=== PATIENT | female | born 1995 | race Caucasian/White ===

== ENCOUNTER 2016-12-28 13:54 | Emergency (ER) | payer MEDICAID ==
[~2016-12-28] VITALS: Ht 160 cm; Wt 72.6 kg
[~2016-12-28 13:54] MED LIST: B6-FOLIC ACID1 CAP PO; BENTYL10 MG PO; LITHIUM CARB 3300 MG OR; LOESTRIN 21 1/21 TAB PO; METHYLPHENIDATE5 MG PO; NAPROSYN 500MG500 MG PO; NICOTINE PATCH;21 MG TD; PHENERGAN 25MG.25 M1 PO; PRENATAL1 TA2 PO; PRILOSEC20 M1 PO; RISPERDAL0.5 MG PO; RISPERDAL1 MG PO; TRILEPTAL300 MG PO; UNISOM25 M1 PO; ZANAFLEX4 MG NG; ZOFRAN ODT8 MG PO
[2016-12-28] MEDS ORDERED: CITALOPRAM10 M1 PO (14:02)
[2016-12-28] MEDS ORDERED: NAPROSYN 500MG500 MG PO (14:03)
--- NOTE | 2016-12-28 14:06 | Emergency Room Report ---
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 N Clinical Suspician of Infection? N Mental Status: 1 - Regular (Normal Baseline) Sepsis Risk:Low Sepsis Risk Have you (or family members/close friends) recently traveled outside the [place]? N If Yes, where/when: Have you had exposure to infectious disease within the past month? N TB? Other? Specify: Pt reports hx longstanding ligamentous pain to left knee. 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 WB, no numbness. No swelling. No direct blow. 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 ALLERGIES Coded Allergies: amoxicillin (I-HIVES 12/28/16) Home Medications Reported Medications Citalopram Hydrobromide (Citalopram HBr) 10 MG PO DAILY #30 NAPROXEN (NAPROSYN 500MG TAB) 500 MG PO BID History Medical History General CAD? No Angina: No [place]: No Hypertension? No Hyperlipidemia? No CHF? No DVT? No PE? No COPD? No Asthma? Yes Anemia? No GERD? No Gastric ulcers? No GI Bleed? No Hernia? No Thyroid Problems? Yes Hypothyroidism? Yes CVA? No Seizures? No Diabetes? No Renal Insuffiency? No End Stage Renal Disease? No UTI? No Stones? No GB Disease: Yes Nephritic Syndrome? No Asplenia? No Hepatitis? No Sickle Cell Disease? No Arthritis? No Migraines? No Cataracts? No Glaucoma? No MRSA? No HIV? No TB? No Anxiety? No Depression? No Cancer? No More? 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 Cardiovascular no peripheral edema Extremities no asymmetry or rotation; no edema or ecchymosis; no ballottement; palpable popliteal and DP pulses. FROM, fully sensate w/ well perfused limb, diffusely painful with neg ant drawer sign, mild pain w/ both valgus and varus maneuvers; no crepitus, deformities, or stepoffs. Neurologic alert, normal exam, no motor/sensory deficits, oriented x 3 Medical Decision Making LABS/Meds/Orders Pt receiving controlled substance in ED? No Results/Orders Orders Procedure Date/time Status KNEE-3 VIEWS-LT 12/28 1404 Active XRAY/CT/US XRAY/CT/US XRAY knee XR interpretation by reviewed by me Xray Results normal/NAD, no fracture seen (minor STS) Departure Departure Time of Disposition 141 Disposition DC Home or Self Care(routine) Clinical Impression Primary Impression: Left knee pain Qualifiers: Chronicity: unspecified Qualified Code: M25.562 - Pain in left knee Condition STABLE Referrals ANITA DONATO APRN (Family) Patient Instructions DI for Knee Pain Additional Instructions Continue Naproxen as already prescribed by Anita, and see Anita for recheck in one to three days. MARIA ANTONIA wrap and crutches for comfort. Weight bearing as tolerated. Discharge Counseling Counseled pt/family regarding diagnosis, test results, medications/RX, home care, follow up needs ED Critical Care Critical Care No at [id number]
--- NOTE | 2016-12-28 14:06 | Emergency Room Report ---
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 N Clinical Suspician of Infection? N Mental Status: 1 - Regular (Normal Baseline) Sepsis Risk:Low Sepsis Risk Have you (or family members/close friends) recently traveled outside the [place]? N If Yes, where/when: Have you had exposure to infectious disease within the past month? N TB? Other? Specify: Pt reports hx longstanding ligamentous pain to left knee. 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 WB, no numbness. No swelling. No direct blow. 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 ALLERGIES Coded Allergies: amoxicillin (I-HIVES 12/28/16) Home Medications Reported Medications Citalopram Hydrobromide (Citalopram HBr) 10 MG PO DAILY #30 NAPROXEN (NAPROSYN 500MG TAB) 500 MG PO BID History Medical History General CAD? No Angina: No [place]: No Hypertension? No Hyperlipidemia? No CHF? No DVT? No PE? No COPD? No Asthma? Yes Anemia? No GERD? No Gastric ulcers? No GI Bleed? No Hernia? No Thyroid Problems? Yes Hypothyroidism? Yes CVA? No Seizures? No Diabetes? No Renal Insuffiency? No End Stage Renal Disease? No UTI? No Stones? No GB Disease: Yes Nephritic Syndrome? No Asplenia? No Hepatitis? No Sickle Cell Disease? No Arthritis? No Migraines? No Cataracts? No Glaucoma? No MRSA? No HIV? No TB? No Anxiety? No Depression? No Cancer? No More? 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 Cardiovascular no peripheral edema Extremities no asymmetry or rotation; no edema or ecchymosis; no ballottement; palpable popliteal and DP pulses. FROM, fully sensate w/ well perfused limb, diffusely painful with neg ant drawer sign, mild pain w/ both valgus and varus maneuvers; no crepitus, deformities, or stepoffs. Neurologic alert, normal exam, no motor/sensory deficits, oriented x 3 Medical Decision Making LABS/Meds/Orders Pt receiving controlled substance in ED? No Results/Orders Orders Procedure Date/time Status KNEE-3 VIEWS-LT 12/28 1404 Active XRAY/CT/US XRAY/CT/US XRAY knee XR interpretation by reviewed by me Xray Results normal/NAD, no fracture seen (minor STS) Departure Departure Time of Disposition 141 Disposition DC Home or Self Care(routine) Clinical Impression Primary Impression: Left knee pain Qualifiers: Chronicity: unspecified Qualified Code: M25.562 - Pain in left knee Condition STABLE Referrals ANITA DONATO APRN (Family) Patient Instructions DI for Knee Pain Additional Instructions Continue Naproxen as already prescribed by Anita, and see Anita for recheck in one to three days. MARIA ANTONIA wrap and crutches for comfort. Weight bearing as tolerated. Discharge Counseling Counseled pt/family regarding diagnosis, test results, medications/RX, home care, follow up needs ED Critical Care Critical Care No at [phone]
[2016-12-28 14:26] VITALS: BP 121/85
--- NOTE | 2016-12-28 14:52 | RADIOLOGY REPORT PS360 ---
KNEE-3 VIEWS-LT HISTORY: Left knee pain twisted L knee ORDERING PHYSICIAN: Marcela Matta MD PATIENT AGE: 21 years COMPARISON: None FINDINGS: No fracture or dislocation. No lytic or blastic change. Normal mineralization. No significant arthritic changes evident. No other significant findings IMPRESSION: Negative Knee
--- OUTSIDE RECORDS SUMMARY | 2017-01-02 02:28 | External Medical Summary Rpt | CCD ---
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 40 10 00 SO Ac UP 87 -1 -1 .0 00 PE ti RO 70 8- 0- 00 00 RS ve FE 32 20 20 55 N 00 17 17 39 FA 60 5 80 AL [address] TA UG BL ET WARD 00 01 02 3. 28 00 SO Ac LA 37 -0 -0 00 00 PE ti NE 83 3- 3- 0 00 RS ve 34 20 20 55 PA 05 17 17 25 FA TC [address] UG ME 59 01 02 1. [address] 76 -0 -0 00 00 YS ti OX 24 3- 3- 0 06 ve YP 53 20 20 29 LL RO 70 17 17 42 E GE [address] /G ER YN ON E FA 15 AL 0 LY MG /M HE L AL TH CE NT ER PH AR MA CY PA 00 12 01 30 30 00 SO Ac RO 37 -2 -2 .0 00 PE ti XE 87 7- 0- 00 00 RS ve TI 00 20 20 55 NE 29 16 17 20 FA 3 33 AL HC LY L 20 DR UG MG TA BL ET AL 00 12 01 30 30 00 SO Ac RT 09 -2 -2 .0 00 PE ti AZ 37 7- 0- 00 00 RS ve AP 20 20 20 55 IN 65 16 17 20 FA E 6 34 AL [address] UG TA BL ET ME 69 12 01 20 20 00 SO Ac LO 09 -1 -0 .0 00 PE ti XI 70 4- 9- 00 00 RS ve CA 15 20 20 55 M 81 16 17 09 FA 7. 2 97 AL [address] TA UG BL ET 48 10 10 0 3. 7 SO 38 SP Ac 10 -2 -2 50 PE 83 EA ti 20 6- 8- 0 RS 87 R ve [address] 83 11 11 FA EV 5 AL EN LY N DR UG RI 68 09 10 1 30 30 SO 38 PO Ac SP 38 -2 -2 .0 PE 52 E ti ER 20 6- 6- [address] ve ID 11 20 20 AC ON 31 11 11 FA Y E 4 AL L 0. LY [address] UG TA BL ET RI 68 09 10 1 30 30 SO 38 PO Ac SP 38 -2 -1 .0 PE 52 E ti ER 20 6- 7- [address] ve ID 11 20 20 AC ON 41 11 11 FA Y E 4 AL L [address] TA UG BL ET LI 00 09 10 1 60 30 SO 38 PO Ac TH 05 -2 -1 .0 PE 52 E ti IU 42 6- 7- [address] ve M 52 20 20 AC CA 73 11 11 FA Y RB 1 AL L ON LY AT E DR 30 UG 0 MG CA P OK 37 09 10 2 56 28 SO 38 TA Ac IL 00 -1 -1 .0 PE 39 MA ti OS 00 2- 1- 00 RS 16 RE ve EC 45 20 20 N 50 11 11 FA JA OT 4 AL NE C LY T [address] UG MG TA BL ET 00 09 10 2 28 28 SO 38 TA Ac 43 -1 -1 .0 PE 39 MA ti 00 2- 1- 00 RS 15 RE ve 53 20 20 N 01 11 11 FA JA 4 AL NE LY T DR UG RI 68 09 09 1 30 30 SO 38 PO Ac SP 38 -2 -2 .0 PE 52 E ti ER 20 6- 6- [address] ve ID 11 20 20 AC ON 31 11 11 FA Y E 4 AL L 0. LY [address] UG TA BL ET LI 00 08 09 0 60 30 SO 38 PO Ac TH 05 -2 -1 .0 PE 27 E ti IU [address] ve M 52 20 20 AC CA 73 11 11 FA Y RB 1 AL L ON LY AT E DR 30 UG 0 MG CA P RI 68 08 09 0 30 30 SO 38 PO Ac SP 38 -2 -1 .0 PE 27 E ti ER [address] ve ID 11 20 20 AC ON 41 11 11 FA Y E 4 AL L [address] TA UG BL ET 45 09 09 3 14 30 SO 38 GR Ac 80 -1 -1 2. PE 41 AV ti 20 RS 71 ES ve 91 20 20 0 30 11 11 FA LE 1 AL SL LY IE W DR UG IM 00 09 09 0 24 30 SO 38 GR Ac IQ 78 -1 -1 .0 PE 41 AV ti UI 17 RS 73 ES ve MO 15 20 20 D 20 11 11 FA LE 5% 9 AL SL LY IE CR W EA DR M UG PA CK ET DI 00 09 09 3 59 30 SO 38 GR Ac FF 29 -1 -1 .0 PE 41 AV ti ER 95 4- 4- RS 74 ES ve IN 91 20 20 20 11 11 FA LE 0. 2 AL SL 1% LY IE W LO DR TI UG ON CL 59 09 09 3 60 30 SO 38 GR Ac IN 76 -1 -1 .0 PE 41 AV ti DA 23 - 4 RS 75 ES ve MY 74 20 20 CI 40 11 11 FA LE N 1 AL SL PH LY IE OS W P DR 1% UG LO TI ON 00 09 09 2 28 28 SO 38 TA Ac 43 -1 -1 .0 PE 39 MA ti 00 2 2- 00 RS 15 RE ve 53 20 20 N 01 11 11 FA JA 4 AL NE LY T DR UG OK 37 09 09 2 56 28 SO 38 TA Ac IL 00 -1 -1 .0 PE 39 MA ti OS 00 2- 2- 00 RS 16 RE ve EC 45 20 20 N 50 11 11 FA JA OT 4 AL NE C LY T [address] UG MG TA BL ET 64 09 09 0 30 4 SO 38 TA Ac 45 -1 -1 .0 PE 39 MA ti 50 2- 2- 00 RS 18 RE ve 99 20 20 N 39 11 11 FA JA 5 AL NE LY T DR UG AC 00 09 09 1 20 5 SO 38 TA Ac YC 09 -1 -1 .0 PE 39 MA ti LO 38 2- 2- 00 RS 19 RE ve 94 20 20 N R 30 11 11 FA JA 40 1 AL NE [address] TA UG BL ET OK 00 08 08 0 12 3 SO 38 TA Ac OM 60 -3 -3 0. PE 28 MA ti ET 31 0- 0- 00 RS 79 RE ve MANUEL 58 20 20 0 N ZI 55 11 11 FA JA NE 8 AL NE -C LY T OD EI DR NE UG SY RU P CE 68 08 08 0 [address] Ac FU 18 -3 -3 .0 PE 28 ON ti RO 00 0- 0- 00 RS 74 E ve XI 30 20 20 DI ME 32 11 11 FA XI 0 AL E AX LY D ET IL DR UG 50 0 MG TA B RI 68 08 08 0 30 30 SO 38 PO Ac SP 38 -2 -2 .0 PE 27 E ti ER 20 9- 9- [address] ve ID 11 20 20 AC ON 31 11 11 FA Y E 4 AL L 0. LY [address] UG TA BL ET 00 08 08 0 12 3 SO 38 TA Ac 12 -2 -2 0. PE 25 MA ti 10 6- 6- 00 RS 50 RE ve 63 20 20 0 N 81 11 11 FA JA 6 AL NE LY T DR UG 52 08 08 0 12 30 SO 38 TA Ac 15 -2 -2 .0 PE 25 MA ti 20 6- 6- 00 RS 55 RE ve 53 20 20 N 93 11 11 FA JA 0 AL NE LY T DR UG RI 68 08 08 0 30 30 SO 38 PO Ac SP 38 -0 -1 .0 PE 00 E ti ER 20 1- 8- [address] ve ID 11 20 20 AC ON 41 11 11 FA Y E 4 AL L [address] TA UG BL ET LI 00 08 08 0 60 30 SO 38 PO Ac TH 05 -0 -1 .0 PE 00 E ti IU 42 1- 8- [address] ve M 52 20 20 AC CA 73 11 11 FA Y RB 1 AL L ON LY AT E DR 30 UG 0 MG CA P TR 45 08 08 0 30 5 SO 38 TA Ac IA 80 -1 -1 .0 PE 12 MA ti MC 20 5- 5 RS 51 RE ve IN 04 20 20 N OL 93 11 11 FA JA ON 5 AL NE E LY T 0. 5% DR STEPHENS OI NT ME NT 00 06 08 2 [address] Ac 43 -0 -1 .0 PE 51 ON ti 00 2 RS 78 E ve 53 20 20 DI 01 11 11 FA XI 4 AL E LY D DR UG RI 00 08 08 0 30 30 SO 38 PO Ac SP 09 -0 -0 .0 PE 00 E ti ER [address] ve ID 22 20 20 AC ON 50 11 11 FA Y E 6 AL L 0. LY [address] UG TA BL ET OK 37 05 07 2 [address] Ac IL 00 -0 -2 .0 PE 29 ON ti OS 00 RS 44 E ve EC 45 20 20 DI 50 11 11 FA XI OT 4 AL E C LY D [address] UG MG TA BL ET RI 68 07 07 0 30 30 SO 37 PO Ac SP 38 -1 -1 .0 PE 89 E ti ER [address] ve ID 11 20 20 AC ON 41 11 11 FA Y E 4 AL L [address] TA UG BL ET LI 00 07 07 0 60 30 SO 37 PO Ac TH 05 -1 -1 .0 PE 89 E ti IU [address] ve M 52 20 20 AC CA 73 11 11 FA Y RB 1 AL L ON LY AT E DR 30 UG 0 MG CA P LI 60 07 07 1 [address] Ac ND 43 -1 -1 .0 PE 87 ON ti AN 20 RS 81 E ve E 83 20 20 DI 1% 46 11 11 FA XI 0 AL E SH LY D AM PO DR O UG 00 06 07 2 [address] Ac 43 -0 -0 .0 PE 51 ON ti 00 RS 78 E ve 53 20 20 DI 01 11 11 FA XI 4 AL E LY D DR STEPHENS TR 50 05 06 2 [address] Ac AZ 11 -0 -2 .0 PE 29 ON ti OD 10 00 RS 46 E ve ON 43 20 20 DI E 30 11 11 FA XI 50 3 AL E LY D MG TA UG BL ET CO 50 06 06 0 30 30 SO 37 TA Ac NC 45 -2 -2 .0 PE 67 MA ti ER 80 1 00 RS 33 RE ve TA 58 20 20 N 70 11 11 FA JA ER 1 AL NE LY T 54 DR MG UG TA BL ET TR 45 06 06 1 30 5 SO 37 TA Ac IA 80 -2 -2 .0 PE 67 MA ti MC 20 RS 36 RE ve IN 06 20 20 N OL 53 11 11 FA JA ON 5 AL NE E LY T 0. 5% DR UG CR EA M CI 13 05 06 2 30 30 SO 37 TA Ac TA 66 -0 -1 .0 PE 29 MA ti LO 80 6 6 00 RS 40 RE ve OK 01 20 20 N AM 10 11 11 FA JA 5 AL NE HB LY T R 40 DR UG MG TA BL ET 00 10 06 2 60 30 SO 35 TA Ac AN 37 -0 -1 .0 PE 39 MA ti FA 81 6 6 00 RS 53 RE ve CI 16 20 20 N NE 00 10 11 FA JA 1 1 AL NE LY T MG DR TA UG BL ET 00 05 06 2 [address] Ac 00 -0 -1 .0 PE 29 ON ti 60 6- 6 00 RS 42 E ve 11 20 20 DI 73 11 11 FA XI 1 AL E LY D DR UG OK 37 05 06 2 [address] Ac IL 00 -0 -1 .0 PE 29 ON ti OS 00 6 6 RS 44 E ve EC 45 20 20 DI 50 11 11 FA XI OT 4 AL E C LY D [address] UG MG TA BL ET 00 06 06 2 [address] Ac 43 -0 -0 .0 PE 51 ON ti 00 2 2 RS 78 E ve 53 20 20 DI 01 11 11 FA XI 4 AL E LY D DR UG TR 50 05 05 2 [address] Ac AZ 11 -0 -3 .0 PE 29 ON ti OD 10 RS 46 E ve ON 43 20 20 DI E 30 11 11 FA XI 50 3 AL E LY D MG DR TA UG BL ET 00 10 05 2 60 30 SO 35 TA Ac AN 37 -0 -1 .0 PE 39 MA ti FA 81 6- 2- 00 RS 53 RE ve CI 16 20 20 N NE 00 10 11 FA JA 1 1 AL NE LY T MG DR TA UG BL ET CI 13 05 05 2 30 30 SO 37 TA Ac TA 66 -0 -1 .0 PE 29 MA ti LO 80 6- 2- 00 RS 40 RE ve OK 01 20 20 N AM 10 11 11 FA JA 5 AL NE HB LY T R 40 DR UG MG TA BL ET 00 05 05 2 [address] Ac 00 -0 -1 .0 PE 29 ON ti 60 6- 2- 00 RS 42 E ve 11 20 20 DI 73 11 11 FA XI 1 AL E LY D DR UG OK 37 05 05 2 [address] Ac IL 00 -0 -1 .0 PE 29 ON ti OS 00 6- 2- 00 RS 44 E ve EC 45 20 20 DI 50 11 11 FA XI OT 4 AL E C LY D [address] UG MG TA BL ET 59 02 05 2 17 30 SO 36 TA Ac 31 -1 -0 .0 PE 49 MA ti 00 0- 6- 00 RS 60 RE ve 57 20 20 N 92 11 11 FA JA 0 AL NE LY T DR UG 00 02 05 2 30 30 SO 36 TA Ac 06 -1 -0 .0 PE 49 MA ti 76 0- 6- 00 RS 63 RE ve 07 20 20 N 03 11 11 FA JA 0 AL NE LY T DR UG CO 50 05 05 0 30 30 SO 37 TA Ac NC 45 -0 -0 .0 PE 29 MA ti ER 80 6- 6- 00 RS 41 RE ve TA 58 20 20 N 70 11 11 FA JA ER 1 AL NE LY T 54 DR MG UG TA BL ET TR 50 02 04 2 30 30 SO 36 TA Ac AZ 11 -1 -2 .0 PE 49 MA ti OD 10 0- 9- 00 RS 61 RE ve ON 43 20 20 N E 30 11 11 FA JA 50 3 AL NE LY T MG DR TA UG BL ET 00 02 04 2 30 30 SO 36 TA Ac 00 -1 -1 .0 PE 49 MA ti 60 0- 1- 00 RS 58 RE ve 11 20 20 N 73 11 11 FA JA 1 AL NE LY T DR UG OK 37 02 04 2 56 28 SO 36 TA Ac IL 00 -1 -1 .0 PE 49 MA ti OS 00 0- 1- 00 RS 59 RE ve EC 45 20 20 N 50 11 11 FA JA OT 4 AL NE C LY T [address] UG MG TA BL ET 00 02 04 2 60 30 SO 36 TA Ac AN 37 -1 -1 .0 PE 49 MA ti FA 81 0- 1- 00 RS 62 RE ve CI 16 20 20 N NE 00 11 11 FA JA 1 1 AL NE LY T MG DR TA UG BL ET CI 13 02 04 2 30 30 SO 36 TA Ac TA 66 -1 -1 .0 PE 49 MA ti LO 80 0- 1- 00 RS 64 RE ve OK 01 20 20 N AM 10 11 11 FA JA 5 AL NE HB LY T R 40 DR UG MG TA BL ET CO 50 04 04 0 30 30 SO 37 TA Ac NC 45 -0 -0 .0 PE 03 MA ti ER 80 7- 7- 00 RS 48 RE ve TA 58 20 20 N 70 11 11 FA JA ER 1 AL NE LY T 54 DR MG UG TA BL ET 00 11 04 5 [address] Ac 43 -0 -0 .0 PE 65 ON ti 00 3- 7- RS 00 E ve 53 20 20 DI 01 10 11 FA XI 4 AL E LY D DR UG TR 50 02 03 2 30 30 SO 36 TA Ac AZ 11 -1 -2 .0 PE 49 MA ti OD 10 0- 9- 00 RS 61 RE ve ON 43 20 20 N E 30 11 11 FA JA 50 3 AL NE LY T MG DR TA UG BL ET CO 50 03 03 0 30 30 SO 36 TA Ac NC 45 -1 -1 .0 PE 78 MA ti ER 80 0- 0- 00 RS 30 RE ve TA 58 20 20 N 70 11 11 FA JA ER 1 AL NE LY T 54 DR MG UG TA BL ET OK 68 03 03 0 20 7 SO 36 TA Ac OM 38 -1 -1 .0 PE 78 MA ti ET 20 0- 0- 00 RS 29 RE ve MANUEL 04 20 20 N ZI 11 11 11 FA JA NE 0 AL NE LY T 25 DR MG UG TA BL ET CI 13 02 03 2 30 30 SO 36 TA Ac TA 66 -1 -0 .0 PE 49 MA ti LO 80 0- 9- 00 RS 64 RE ve OK 01 20 20 N AM 10 11 11 FA JA 5 AL NE HB LY T R 40 DR UG MG TA BL ET 00 02 03 2 60 30 SO 36 TA Ac AN 37 -1 -0 .0 PE 49 MA ti FA 81 0- 9- 00 RS 62 RE ve CI 16 20 20 N NE 00 11 11 FA JA 1 1 AL NE LY T MG DR TA UG BL ET OK 37 02 03 2 56 28 SO 36 TA Ac IL 00 -1 -0 .0 PE 49 MA ti OS 00 0- 9- 00 RS 59 RE ve EC 45 20 20 N 50 11 11 FA JA OT 4 AL NE C LY T [address] UG MG TA BL ET 00 02 03 2 30 30 SO 36 TA Ac 00 -1 -0 .0 PE 49 MA ti 60 0- 9- 00 RS 58 RE ve 11 20 20 N 73 11 11 FA JA 1 AL NE LY T DR UG 00 11 03 5 [address] Ac 43 -0 -0 .0 PE 65 ON ti 00 3- 7- 00 RS 00 E ve 53 20 20 DI 01 10 11 FA XI 4 AL E LY D DR UG TR 50 02 02 2 30 30 SO 36 TA Ac AZ 11 -1 -2 .0 PE 49 MA ti OD 10 0- 3- 00 RS 61 RE ve ON 43 20 20 N E 30 11 11 FA JA 50 3 AL NE LY T MG DR TA UG BL ET CI 13 02 02 2 30 30 SO 36 TA Ac TA 66 -1 -1 .0 PE 49 MA ti LO 80 0- 0- 00 RS 64 RE ve OK 01 20 20 N AM 10 11 11 FA JA 5 AL NE HB LY T R 40 DR UG MG TA BL ET 00 02 02 2 30 30 SO 36 TA Ac 06 -1 -1 .0 PE 49 MA ti 76 0- 0- 00 RS 63 RE ve 07 20 20 N 03 11 11 FA JA 0 AL NE LY T DR STEPHENS 00 02 02 2 60 30 SO 36 TA Ac AN 37 -1 -1 .0 PE 49 MA ti FA 81 0- 0- 00 RS 62 RE ve CI 16 20 20 N NE 00 11 11 FA JA 1 1 AL NE LY T MG DR TA UG BL ET 59 02 02 2 17 30 SO 36 TA Ac 31 -1 -1 .0 PE 49 MA ti 00 0- 0- 00 RS 60 RE ve 57 20 20 N 92 11 11 FA JA 0 AL NE LY T DR UG OK 37 02 02 2 56 28 SO 36 TA Ac IL 00 -1 -1 .0 PE 49 MA ti OS 00 0- 0- 00 RS 59 RE ve EC 45 20 20 N 50 11 11 FA JA OT 4 AL NE C LY T [address] STEPHENS MG TA BL ET 00 02 02 2 30 30 SO 36 TA Ac 00 -1 -1 .0 PE 49 MA ti 60 0- 0- 00 RS 58 RE ve 11 20 20 N 73 11 11 FA JA 1 AL NE LY T DR UG CO 50 02 02 0 30 30 SO 36 TA Ac NC 45 -1 -1 .0 PE 49 MA ti ER 80 0- 0- 00 RS 57 RE ve TA 58 20 20 N 70 11 11 FA JA ER 1 AL NE LY T 54 DR MG UG TA BL ET 00 11 02 5 [address] Ac 43 -0 -0 .0 PE 65 ON ti 00 3- 7- 00 RS 00 E ve 53 20 20 DI 01 10 11 FA XI 4 AL E LY D DR UG 60 01 01 0 24 6 SO 36 TA Ac 25 -2 -2 0. PE 33 MA ti 80 4- 4- 00 RS 06 RE ve 23 20 20 0 N 91 11 11 FA JA 6 AL NE LY T DR UG ME 51 01 01 0 21 6 SO 36 TA Ac TH 99 -2 -2 .0 PE 33 MA ti YL 10 4- 4- 00 RS 05 RE ve OK 18 20 20 N ED 83 11 11 FA JA NI 1 AL NE SO LY T LO NE DR 4 UG MG DO SE PK AZ 00 01 01 0 6. 5 SO 36 TA Ac IT 78 -2 -2 00 PE 33 MA ti HR 11 4- 4- 0 RS 04 RE ve OM 49 20 20 N YC 66 11 11 FA JA IN 8 AL NE LY T [address] MG UG TA BL ET TR 50 11 01 2 30 30 SO 35 TA Ac AZ 11 -1 -2 .0 PE 74 MA ti OD 10 1- 4- 00 RS 13 RE ve ON 43 20 20 N E 30 10 11 FA JA 50 3 AL NE LY T MG DR TA UG BL ET CI 13 11 01 2 30 30 SO 35 TA Ac TA 66 -0 -1 .0 PE 68 MA ti LO 80 8- 2- 00 RS 96 RE ve OK 01 20 20 N AM 10 10 11 FA JA 5 AL NE HB LY T R 40 DR UG MG TA BL ET OK 37 11 01 2 56 28 SO 35 TA Ac IL 00 -0 -1 .0 PE 68 MA ti OS 00 8- 2- 00 RS 93 RE ve EC 45 20 20 N 50 10 11 FA JA OT 4 AL NE C LY T [address] UG MG TA BL ET 00 11 01 2 30 30 SO 35 TA Ac 00 -0 -1 .0 PE 68 MA ti 60 8- 2- 00 RS 94 RE ve 11 20 20 N 73 10 11 FA JA 1 AL NE LY T DR UG 00 11 01 2 60 30 SO 35 TA Ac AN 37 -0 -1 .0 PE 68 MA ti FA 81 8- 2- 00 RS 95 RE ve CI 16 20 20 N NE 00 10 11 FA JA 1 1 AL NE LY T MG DR TA UG BL ET CO 50 01 01 0 30 30 SO 36 TA Ac NC 45 -1 -1 .0 PE 22 MA ti ER 80 0- 0- 00 RS 05 RE ve TA 58 20 20 N 70 11 11 FA JA ER 1 AL NE LY T 54 DR MG UG TA BL ET HY 00 01 01 0 30 10 SO [address] 16 -0 -0 .0 PE 17 MA ti OC 80 4- 4- 00 RS 23 RE ve OR 08 20 20 N TI 03 11 11 FA JA SO 1 AL NE NE LY T 2. DR 5% UG CR EA M NY 45 01 01 0 30 10 SO [address] 80 -0 -0 .0 PE 17 MA ti AT 20 4- 4- 00 RS 22 RE ve IN 04 20 20 N 81 11 11 FA JA 10 1 AL NE 0, LY T [address] UN UG IT S/ GM OI NT 00 11 01 5 [address] Ac 43 -0 -0 .0 PE 65 ON ti 00 3- 3- 00 RS 00 E ve 53 20 20 DI 01 10 11 FA XI 4 AL E LY D DR UG TR 50 11 12 2 30 30 SO 35 TA Ac AZ 11 -1 -2 .0 PE 74 MA ti OD 10 1- 0- 00 RS 13 RE ve ON 43 20 20 N E 30 10 10 FA JA 50 3 AL NE LY T MG DR TA UG BL ET CO 50 12 12 0 30 30 SO 35 TA Ac NC 45 -1 -1 .0 PE 99 MA ti ER 80 0- 0- 00 RS 43 RE ve TA 58 20 20 N 70 10 10 FA JA ER 1 AL NE LY T 54 DR MG UG TA BL ET CI 13 11 12 2 30 30 SO 35 TA Ac TA 66 -0 -0 .0 PE 68 MA ti LO 80 8- 8- 00 RS 96 RE ve OK 01 20 20 N AM 10 10 10 FA JA 5 AL NE HB LY T R 40 DR UG MG TA BL ET OK 37 11 12 2 56 28 SO 35 TA Ac IL 00 -0 -0 .0 PE 68 MA ti OS 00 8- 8- 00 RS 93 RE ve EC 45 20 20 N 50 10 10 FA JA OT 4 AL NE C LY T [address] UG MG TA BL ET 00 11 12 2 30 30 SO 35 TA Ac 00 -0 -0 .0 PE 68 MA ti 60 8- 8- 00 RS 94 RE ve 11 20 20 N 73 10 10 FA JA 1 AL NE LY T DR UG 00 11 12 2 60 30 SO 35 TA Ac AN 37 -0 -0 .0 PE 68 MA ti FA 81 8- 8- 00 RS 95 RE ve CI 16 20 20 N NE 00 10 10 FA JA 1 1 AL NE LY T MG DR TA UG BL ET 00 11 12 5 [address] Ac 43 -0 -0 .0 PE 65 ON ti 00 3- 2- 00 RS 00 E ve 53 20 20 DI 01 10 10 FA XI 4 AL E LY D DR UG ON 00 11 11 0 6. 30 SO 35 TA Ac DA 78 -1 -1 00 PE 80 MA ti NS 11 8- 8- 0 RS 42 RE ve ET 68 20 20 N RO 13 10 10 FA JA N 1 AL NE HC LY T L 8 DR MG UG TA BL ET TR 50 11 11 2 30 30 SO 35 TA Ac AZ 11 -1 -1 .0 PE 74 MA ti OD 10 1- 1- 00 RS 13 RE ve ON 43 20 20 N E 30 10 10 FA JA 50 3 AL NE LY T MG DR TA UG BL ET CO 50 11 11 0 30 30 SO 35 TA Ac NC 45 -0 -0 .0 PE 68 MA ti ER 80 8- 8- 00 RS 99 RE ve TA 58 20 20 N 70 10 10 FA JA ER 1 AL NE LY T 54 DR MG UG TA BL ET 64 11 11 2 60 30 SO 35 TA Ac 98 -0 -0 .0 PE 68 MA ti 00 8- 8- 00 RS 98 RE ve 12 20 20 N 30 10 10 FA JA 1 AL NE LY T DR UG 00 11 11 2 30 30 SO 35 TA Ac 06 -0 -0 .0 PE 68 MA ti 76 8- 8- 00 RS 97 RE ve 07 20 20 N 03 10 10 FA JA 0 AL NE LY T DR UG CI 13 11 11 2 30 30 SO 35 TA Ac TA 66 -0 -0 .0 PE 68 MA ti LO 80 8- 8- 00 RS 96 RE ve OK 01 20 20 N AM 10 10 10 FA JA 5 AL NE HB LY T R 40 DR UG MG TA BL ET 00 11 11 2 60 30 SO 35 TA Ac AN 37 -0 -0 .0 PE 68 MA ti FA 81 8 8- 00 RS 95 RE ve CI 16 20 20 N NE 00 10 10 FA JA 1 1 AL NE LY T MG DR TA UG BL ET 00 11 11 2 30 30 SO 35 TA Ac 00 -0 -0 .0 PE 68 MA ti 60 8- 8- 00 RS 94 RE ve 11 20 20 N 73 10 10 FA JA 1 AL NE LY T DR UG OK 37 11 11 2 56 28 SO 35 TA Ac IL 00 -0 -0 .0 PE 68 MA ti OS 00 8 8 00 RS 93 RE ve EC 45 20 20 N 50 10 10 FA JA OT 4 AL NE C LY T [address] UG MG TA BL ET 59 11 11 2 17 30 SO 35 TA Ac 31 -0 -0 .0 PE 68 MA ti 00 8 8 RS 92 RE ve 57 20 20 N 92 10 10 FA JA 0 AL NE LY T DR UG BE 68 11 11 0 [address] Ac NZ 38 -0 -0 .0 PE 64 ON ti ON 20 3 3 RS 98 E ve AT 24 20 20 DI AT 80 10 10 FA XI E 1 AL E 20 L[address] UG CA PS UL E CE 68 11 11 0 [address] Ac FU 18 -0 -0 .0 PE 64 ON ti RO 00 3 3- 00 RS 99 E ve XI 30 20 20 DI ME 26 10 10 FA XI 0 AL E AX LY D ET IL DR UG 25 0 MG TA B 00 11 11 5 [address] Ac 43 -0 -0 .0 PE 65 ON ti 00 3- 3- 00 RS 00 E ve 53 20 20 DI 01 10 10 FA XI 4 AL E LY D DR UG TR 51 11 11 0 5. [address] Ac IA 67 -0 -0 00 PE 65 ON ti MC 21 3- 3- 0 RS 01 E ve IN 26 20 20 DI OL 70 10 10 FA XI ON 5 AL E E LY D 0. 1% DR UG PA ST E 64 11 11 0 [address] Ac 37 -0 -0 .0 PE 65 ON ti 60 3- 3- 00 RS 02 E ve 54 20 20 DI 40 10 10 FA XI 1 AL E LY D DR UG TR 50 08 10 2 30 30 SO 34 TA Ac AZ 11 -1 -1 .0 PE 91 MA ti OD 10 0- 3- 00 RS 58 RE ve ON 43 20 20 N E 30 10 10 FA JA 50 3 AL NE LY T MG DR TA UG BL ET 00 10 10 0 10 7 SO 35 TA Ac 90 -1 -1 .0 PE 45 MA ti 40 2- 2- 00 RS 33 RE ve 79 20 20 N 31 10 10 FA JA 0 AL NE LY T DR UG CE 68 10 10 0 20 10 SO 35 TA Ac FP 18 -0 -0 .0 PE 39 MA ti RO 00 6- 6 00 RS 49 RE ve ZI 40 20 20 N L 30 10 10 FA JA 25 1 AL NE [address] TA UG BL ET 60 10 10 0 24 6 SO 35 TA Ac 25 -0 -0 0. PE 39 MA ti 80 6- 6- 00 RS 48 RE ve 23 20 20 0 N 91 10 10 FA JA 6 AL NE LY T DR UG BE 68 10 10 0 30 10 SO 35 TA Ac NZ 38 -0 -0 .0 PE 39 MA ti ON 20 6- 6 RS 47 RE ve AT 24 20 20 N AT 80 10 10 FA JA E 1 AL NE 20 L[address] UG CA PS UL E DI 00 10 10 0 20 5 SO 35 TA Ac PH 37 -0 -0 .0 PE 39 MA ti EN 80 6- 6- 00 RS 46 RE ve OX 41 20 20 N YL 51 10 10 FA JA AT 0 AL NE E- LY T AT RO DR P UG 2. 5- 0. 02 5 CO 50 10 10 0 30 30 SO 35 TA Ac NC 45 -0 -0 .0 PE 39 MA ti ER 80 6- 6- 00 RS 45 RE ve TA 58 20 20 N 70 10 10 FA JA ER 1 AL NE LY T 54 DR MG UG TA BL ET OK 00 10 10 0 15 5 SO 35 TA Ac ED 59 -0 -0 .0 PE 39 MA ti NI 15 6- 6- 00 RS 44 RE ve SO 44 20 20 N NE 20 10 10 FA JA 5 AL NE [address] UG TA BL ET 00 07 10 2 30 30 SO 34 TA Ac 06 -2 -0 .0 PE 78 MA ti 76 6- 6- 00 RS 81 RE ve 07 20 20 N 03 10 10 FA JA 0 AL NE LY T DR UG OK 37 07 10 2 28 28 SO 34 TA Ac IL 00 -2 -0 .0 PE 78 MA ti OS 00 6- 5- 00 RS 82 RE ve EC 45 20 20 N 50 10 10 FA JA OT 4 AL NE C LY T [address] UG MG TA BL ET CI 13 07 10 2 30 30 SO 34 TA Ac TA 66 -2 -0 .0 PE 78 MA ti LO 80 6- 5- 00 RS 80 RE ve OK 01 20 20 N AM 10 10 10 FA JA 5 AL NE HB LY T R 40 DR UG MG TA BL ET 00 07 10 2 60 30 SO 34 TA Ac AN 37 -2 -0 .0 PE 78 MA ti FA 81 6- 5- 00 RS 79 RE ve CI 16 20 20 N NE 00 10 10 FA JA 1 1 AL NE LY T MG DR TA UG BL ET 00 07 10 2 30 30 SO 34 TA Ac 00 -2 -0 .0 PE 78 MA ti 60 6- 5- 00 RS 78 RE ve 11 20 20 N 73 10 10 FA JA 1 AL NE LY T DR UG TR 50 08 09 2 30 30 SO 34 TA Ac AZ 11 -1 -1 .0 PE 91 MA ti OD 10 0- 0- 00 RS 58 RE ve ON 43 20 20 N E 30 10 10 FA JA 50 3 AL NE LY T MG DR TA UG BL ET 60 09 09 0 18 9 SO 35 TA Ac 25 -0 -0 0. PE 10 MA ti 80 2- 2- 00 RS 95 RE ve 23 20 20 0 N 91 10 10 FA JA 6 AL NE LY T DR UG 00 09 09 0 21 6 SO 35 TA Ac 55 -0 -0 .0 PE 10 MA ti 50 2- 2- 00 RS 94 RE ve 30 20 20 N 13 10 10 FA JA 8 AL NE LY T DR UG CE 68 09 09 0 10 5 SO 35 TA Ac FD 18 -0 -0 .0 PE 10 MA ti IN 00 2- 2- 00 RS 93 RE ve IR 71 20 20 N 16 10 10 FA JA 30 0 AL NE [address] CA UG PS UL E OK 37 07 08 2 28 28 SO 34 TA Ac IL 00 -2 -2 .0 PE 78 MA ti OS 00 6- 7- 00 RS 82 RE ve EC 45 20 20 N 50 10 10 FA JA OT 4 AL NE C LY T [address] UG MG TA BL ET CI 13 07 08 2 30 30 SO 34 TA Ac TA 66 -2 -2 .0 PE 78 MA ti LO 80 6- 6- 00 RS 80 RE ve OK 01 20 20 N AM 10 10 10 FA JA 5 AL NE HB LY T R 40 DR UG MG TA BL ET 00 07 08 2 30 30 SO 34 TA Ac 00 -2 -2 .0 PE 78 MA ti 60 6- 6- 00 RS 78 RE ve 11 20 20 N 73 10 10 FA JA 1 AL NE LY T DR UG 00 07 08 2 60 30 SO 34 TA Ac AN 37 -2 -2 .0 PE 78 MA ti FA 81 6- 6- 00 RS 79 RE ve CI 16 20 20 N NE 00 10 10 FA JA 1 1 AL NE LY T MG DR TA UG BL ET CO 50 08 08 0 30 30 SO 35 TA Ac NC 45 -2 -2 .0 PE 03 MA ti ER 80 5- 5- 00 RS 59 RE ve TA 58 20 20 N 70 10 10 FA JA ER 1 AL NE LY T 54 DR MG UG TA BL ET 64 08 08 0 20 10 SO 34 TA Ac 37 -1 -1 .0 PE 91 MA ti 60 0- 0- 00 RS 56 RE ve 54 20 20 N 40 10 10 FA JA 1 AL NE LY T DR UG BE 68 08 08 0 30 10 SO 34 TA Ac NZ 38 -1 -1 .0 PE 91 MA ti ON 20 0- 0- 00 RS 57 RE ve AT 24 20 20 N AT 80 10 10 FA JA E 1 AL NE 20 LY T [address] UG CA PS UL E TR 50 08 08 2 30 30 SO 34 TA Ac AZ 11 -1 -1 .0 PE 91 MA ti OD 10 0- 0- 00 RS 58 RE ve ON 43 20 20 N E 30 10 10 FA JA 50 3 AL NE LY T MG DR TA UG BL ET CE 68 08 08 0 14 7 SO 34 TA Ac FP 18 -1 -1 .0 PE 91 MA ti RO 00 0- 0- 00 RS 59 RE ve ZI 40 20 20 N L 40 10 10 FA JA 50 1 AL NE [address] TA UG BL ET 59 08 08 2 1. 90 SO 34 TA Ac 76 -0 -0 00 PE 90 MA ti 24 9- 9- 0 RS 26 RE ve 53 20 20 N 80 10 10 FA JA 1 AL NE LY T DR UG 00 07 07 2 30 30 SO 34 TA Ac 00 -2 -2 .0 PE 78 MA ti 60 6- 6- 00 RS 78 RE ve 11 20 20 N 73 10 10 FA JA 1 AL NE LY T DR UG 00 07 07 2 60 30 SO 34 TA Ac AN 37 -2 -2 .0 PE 78 MA ti FA 81 6- 6- 00 RS 79 RE ve CI 16 20 20 N NE 00 10 10 FA JA 1 1 AL NE LY T MG DR TA UG BL ET CI 13 07 07 2 30 30 SO 34 TA Ac TA 66 -2 -2 .0 PE 78 MA ti LO 80 6- 6- 00 RS 80 RE ve OK 01 20 20 N AM 10 10 10 FA JA 5 AL NE HB LY T R 40 DR UG MG TA BL ET 00 07 07 2 30 30 SO 34 TA Ac 06 -2 -2 .0 PE 78 MA ti 76 6- 6- 00 RS 81 RE ve 07 20 20 N 03 10 10 FA JA 0 AL NE LY T DR UG OK 37 07 07 2 28 28 SO 34 TA Ac IL 00 -2 -2 .0 PE 78 MA ti OS 00 6- 6- 00 RS 82 RE ve EC 45 20 20 N 50 10 10 FA JA OT 4 AL NE C LY T [address] UG MG TA BL ET CO 50 07 07 0 30 30 SO 34 TA Ac NC 45 -2 -2 .0 PE 79 MA ti ER 80 6- 6- 00 RS 02 RE ve TA 58 20 20 N 70 10 10 FA JA ER 1 AL NE LY T 54 DR MG UG TA BL ET 64 05 07 1 60 30 SO 34 TA Ac 98 -2 -0 .0 PE 37 MA ti 00 6- 1- 00 RS 31 RE ve 12 20 20 N 30 10 10 FA JA 1 AL NE LY T DR UG AN 24 12 06 1 23 3 SO 33 TA Ac TI 38 -2 -2 .6 PE 17 MA ti -D 50 8- 9- 00 RS 72 RE ve IA 55 20 20 N RR 45 09 10 FA JA HE 3 AL NE AL LY T 2 DR MG UG CA PL ET OK 68 06 06 0 20 7 SO 34 TA Ac OM 38 -1 -1 .0 PE 47 MA ti ET 20 0- 0- 00 RS 90 RE ve MANUEL 04 20 20 N ZI 11 10 10 FA JA NE 0 AL NE LY T 25 DR MG UG TA BL ET CO 50 06 06 0 30 30 SO 34 TA Ac NC 45 -1 -1 .0 PE 47 MA ti ER 80 0- 0- 00 RS 89 RE ve TA 58 20 20 N 70 10 10 FA JA ER 1 AL NE LY T 54 DR MG UG TA BL ET OK 37 06 06 2 28 28 SO 34 TA Ac IL 00 -1 -1 .0 PE 47 MA ti OS 00 0- 0- 00 RS 87 RE ve EC 45 20 20 N 50 10 10 FA JA OT 4 AL NE C LY T [address] UG MG TA BL ET CI 13 05 06 2 30 30 SO 34 TA Ac TA 66 -0 -0 .0 PE 21 MA ti LO 80 5- 7- 00 RS 14 RE ve OK 01 20 20 N AM 10 10 10 FA JA 5 AL NE HB LY T R 40 DR UG MG TA BL ET 64 05 05 1 60 30 SO 34 TA Ac 98 -2 -2 .0 PE 37 MA ti 00 6- 6- 00 RS 31 RE ve 12 20 20 N 30 10 10 FA JA 1 AL NE LY T DR UG 00 03 05 2 30 30 SO 33 TA Ac 00 -0 -2 .0 PE 71 MA ti 60 8- 4- 00 RS 74 RE ve 11 20 20 N 73 10 10 FA JA 1 AL NE LY T DR UG 00 03 05 2 60 30 SO 33 TA Ac AN 37 -0 -2 .0 PE 71 MA ti FA 81 8- 4- 00 RS 77 RE ve CI 16 20 20 N NE 00 10 10 FA JA 1 1 AL NE LY T MG DR TA UG BL ET 59 05 05 0 1. 90 SO 34 TA Ac 76 -2 -2 00 PE 36 MA ti 24 4- 4- 0 RS 01 RE ve 53 20 20 N 80 10 10 FA JA 1 AL NE LY T DR UG RA 53 12 05 2 60 30 SO 32 TA Ac NI 74 -0 -1 .0 PE 95 MA ti TI 60 1- 4- 00 RS 19 RE ve DI 25 20 20 N NE 30 09 10 FA JA 5 AL NE 15 L[address] UG TA BL ET 64 05 05 0 15 10 SO 34 TA Ac 45 -0 -0 .0 PE 21 MA ti 50 5- 5- 00 RS 11 RE ve 99 20 20 N 39 10 10 FA JA 4 AL NE LY T DR UG BYRD 00 05 05 0 10 5 SO 34 TA Ac LF 60 -0 -0 .0 PE 21 MA ti AM 35 5- 5- 00 RS 12 RE ve ET 78 20 20 N HO 12 10 10 FA JA XA 8 AL NE ZO LY T LE -T DR MP UG DS TA BL ET CO 50 05 05 0 30 30 SO 34 TA Ac NC 45 -0 -0 .0 PE 21 MA ti ER 80 5- 5- 00 RS 13 RE ve TA 58 20 20 N 70 10 10 FA JA ER 1 AL NE LY T 54 DR MG UG TA BL ET CI 13 05 05 2 30 30 SO 34 TA Ac TA 66 -0 -0 .0 PE 21 MA ti LO 80 5- 5- 00 RS 14 RE ve OK 01 20 20 N AM 10 10 10 FA JA 5 AL NE HB LY T R 40 DR UG MG TA BL ET 00 03 04 2 30 30 SO 33 TA Ac 00 -0 -2 .0 PE 71 MA ti 60 8- 2- 00 RS 74 RE ve 11 20 20 N 73 10 10 FA JA 1 AL NE LY T DR UG 00 03 04 2 60 30 SO 33 TA Ac AN 37 -0 -2 .0 PE 71 MA ti FA 81 8- 2- 00 RS 77 RE ve CI 16 20 20 N NE 00 10 10 FA JA 1 1 AL NE LY T MG DR TA UG BL ET 00 04 04 1 30 30 SO 34 TA Ac 06 -1 -1 .0 PE 01 MA ti 76 2- 2- 00 RS 13 RE ve 07 20 20 N 03 10 10 FA JA 0 AL NE LY T DR UG CI 13 04 04 0 15 30 SO 34 TA Ac TA 66 -1 -1 .0 PE 01 MA ti LO 80 2- 2- 00 RS 14 RE ve OK 01 20 20 N AM 00 10 10 FA JA 5 AL NE HB LY T R 20 DR UG MG TA BL ET CO 50 04 04 0 60 30 SO 34 TA Ac NC 45 -1 -1 .0 PE 01 MA ti ER 80 2- 2- 00 RS 16 RE ve TA 58 20 20 N 60 10 10 FA JA ER 1 AL NE LY T 36 DR MG UG TA BL ET 60 03 03 0 [address] Ac 25 -2 -2 0. PE 89 ON ti 80 6- 6- 00 RS 36 E ve 23 20 20 0 DI 91 10 10 FA XI 6 AL E LY D DR UG OK 10 03 03 0 [address] Ac OM 70 -2 -2 .0 PE 89 ON ti ET 20 6- 6- 00 RS 35 E ve MANUEL 00 20 20 DI ZI 31 10 10 FA XI NE 0 AL E LY D 25 DR MG UG TA BL ET OK 37 12 03 2 28 28 SO 33 TA Ac IL 00 -2 -2 .0 PE 17 MA ti OS 00 8- 2- 00 RS 69 RE ve EC 45 20 20 N 50 09 10 FA JA OT 4 AL NE C LY T [address] UG MG TA BL ET 00 03 03 2 30 30 SO 33 TA Ac 00 -0 -2 .0 PE 71 MA ti 60 8- 2- 00 RS 74 RE ve 11 20 20 N 73 10 10 FA JA 1 AL NE LY T DR UG 00 03 03 2 60 30 SO 33 TA Ac AN 37 -0 -2 .0 PE 71 MA ti FA 81 8- 2- 00 RS 77 RE ve CI 16 20 20 N NE 00 10 10 FA JA 1 1 AL NE LY T MG DR TA UG BL ET CI 13 03 03 2 15 30 SO 33 TA Ac TA 66 -0 -2 .0 PE 71 MA ti LO 80 8- 2- 00 RS 78 RE ve OK 01 20 20 N AM 10 10 10 FA JA 5 AL NE HB LY T R 40 DR UG MG TA BL ET CO 50 03 03 0 60 30 SO 33 TA Ac NC 45 -0 -0 .0 PE 71 MA ti ER 80 8- 8- 00 RS 75 RE ve TA 58 20 20 N 60 10 10 FA JA ER 1 AL NE LY T 36 DR MG UG TA BL ET RA 53 03 03 2 60 30 SO 33 TA Ac NI 74 -0 -0 .0 PE 71 MA ti TI 60 8- 8- 00 RS 76 RE ve DI 25 20 20 N NE 30 10 10 FA JA 5 AL NE [address] LY [address] UG TA BL ET CO 50 02 02 00 60 30 SO 33 TA Ac NC 45 -0 -1 .0 PE 48 MA ti ER 80 4- 1- 00 RS 05 RE ve TA 58 20 20 N 60 10 10 FA JA ER 1 AL NE LY T 36 DR MG UG TA BL ET 00 12 01 01 60 30 SO 32 TA Ac AN 37 -0 -2 .0 PE 95 MA ti FA 81 1- 8- 00 RS 17 RE ve CI 16 20 20 N NE 00 09 10 FA JA 1 1 AL NE LY T MG DR TA UG BL ET CI 65 12 01 01 15 30 SO 32 TA Ac TA 86 -0 -2 .0 PE 95 MA ti LO 20 1- 8- 00 RS 16 RE ve OK 00 20 20 N AM 70 09 10 FA JA 1 AL NE HB LY T R 40 DR UG MG TA BL ET 00 12 01 01 30 30 SO 32 TA Ac 00 -0 -2 .0 PE 95 MA ti 60 1- 8- 00 RS 20 RE ve 11 20 20 N 73 09 10 FA JA 1 AL NE LY T DR UG CO 50 01 00 60 30 SO 33 TA Ac NC 45 -0 -1 .0 PE 23 MA ti ER 80 5- 4- 00 RS 57 RE ve TA 58 20 20 N 60 10 10 FA JA ER 1 AL NE LY T 36 DR MG UG TA BL ET OK 37 12 01 00 28 28 SO 33 TA Ac IL 00 -2 -1 .0 PE 17 MA ti OS 00 8- 4- 00 RS 69 RE ve EC 45 20 20 N 50 09 10 FA JA OT 4 AL NE C LY T [address] UG MG TA BL ET AZ 64 12 01 00 6. 5 SO 33 TA Ac IT 67 -2 -1 00 PE 17 MA ti HR 90 8- 4- 0 RS 71 RE ve OM 96 20 20 N YC 10 09 10 FA JA IN 5 AL NE LY T [address] MG UG TA BL ET AN 24 12 00 24 3 SO 33 TA Ac TI 38 -2 -1 .3 PE 17 MA ti -D 50 8- 4- 99 RS 72 RE ve IA 55 20 20 N RR 45 09 10 FA JA HE 3 AL NE AL LY T 2 DR MG UG CA PL ET 66 12 00 11 12 SO 33 TA Ac 99 -2 -1 8. PE 17 MA ti 20 8- 4- 00 RS 70 RE ve 22 20 20 0 N 00 09 10 FA JA 4 AL NE LY T DR UG CI 65 12 12 00 15 30 SO 32 TA Ac TA 86 -0 -3 .0 PE 95 MA ti LO 20 1- 1- 00 RS 16 RE ve OK 00 20 20 N AM 70 09 09 FA JA 1 AL NE HB LY T R 40 DR UG MG TA BL ET 00 12 12 00 30 30 SO 32 TA Ac 00 -0 -3 .0 PE 95 MA ti 60 1- 1- 00 RS 20 RE ve 11 20 20 N 73 09 09 FA JA 1 AL NE LY T DR UG 00 12 12 00 60 30 SO 32 TA Ac AN 37 -0 -3 .0 PE 95 MA ti FA 81 1- 1- 00 RS 17 RE ve CI 16 20 20 N NE 00 09 09 FA JA 1 1 AL NE LY T MG DR TA UG BL ET CO 50 12 12 00 60 30 SO 32 TA Ac NC 45 -0 -1 .0 PE 95 MA ti ER 80 1- 7- 00 RS 21 RE ve TA 58 20 20 N 60 09 09 FA JA ER 1 AL NE LY T 36 DR MG UG TA BL ET RA 53 12 12 00 60 30 SO 32 TA Ac NI 74 -0 -1 .0 PE 95 MA ti TI 60 1- 7- 00 RS 19 RE ve DI 25 20 20 N NE 30 09 09 FA JA 5 AL NE [address] LY [address] UG TA BL ET CI 65 07 12 02 15 30 SO 31 TA Ac TA 86 -2 -0 .0 PE 88 MA ti LO 20 9- 3- 00 RS 14 RE ve OK 00 20 20 N AM 70 09 09 FA JA 1 AL NE HB LY T R 40 DR UG MG TA BL ET 00 07 12 02 30 30 SO 31 TA Ac 00 -2 -0 .0 PE 88 MA ti 60 9- 3- 00 RS 12 RE ve 11 20 20 N 73 09 09 FA JA 1 AL NE LY T DR UG 00 07 12 02 60 30 SO 31 TA Ac AN 37 -2 -0 .0 PE 88 MA ti FA 81 9- 3- 00 RS 13 RE ve CI 16 20 20 N NE 00 09 09 FA JA 1 1 AL NE LY T MG DR TA UG BL ET OK 68 07 11 02 40 10 SO 31 TA Ac OM 38 -2 -0 .0 PE 88 MA ti ET 20 9- 5- 00 RS 16 RE ve MANUEL 04 20 20 N ZI 11 09 09 FA JA NE 0 AL NE LY T 25 DR MG UG TA BL ET CO 50 10 11 00 60 30 SO 32 TA Ac NC 45 -2 -0 .0 PE 67 MA ti ER 80 9- 5- 00 RS 19 RE ve TA 58 20 20 N 60 09 09 FA JA ER 1 AL NE LY T 36 DR MG UG TA BL ET SF 60 10 11 00 56 20 SO 32 DU Ac 25 -2 -0 .0 PE 57 RB ti 1. 80 0- 5- 00 RS 77 IN ve 1% 15 20 20 10 09 09 FA DO GE 1 AL UG L LY LA S DR D UG ME 00 10 11 00 1. 90 SO [address] 70 -2 -0 00 PE 67 MA ti OX 36 9- 5- 0 RS 18 RE ve YP 80 20 20 N RO 10 09 09 FA JA GE [address] LY T ER ON DR E UG 15 0 MG /M L 53 10 10 00 12 12 SO 32 TA Ac 01 -0 -2 0. PE 43 MA ti 40 5- 2- 00 RS 51 RE ve 54 20 20 0 N 86 09 09 FA JA 7 AL NE LY T DR UG CI 65 07 10 01 15 30 SO 31 TA Ac TA 86 -2 -2 .0 PE 88 MA ti LO 20 9- 2- 00 RS 14 RE ve OK 00 20 20 N AM 70 09 09 FA JA 1 AL NE HB LY T R 40 DR UG MG TA BL ET 00 07 10 01 60 30 SO 31 TA Ac AN 37 -2 -2 .0 PE 88 MA ti FA 81 9- 2- 00 RS 13 RE ve CI 16 20 20 N NE 00 09 09 FA JA 1 1 AL NE LY T MG DR TA UG BL ET 00 07 10 01 30 30 SO 31 TA Ac 00 -2 -2 .0 PE 88 MA ti 60 9- 2- 00 RS 12 RE ve 11 20 20 N 73 09 09 FA JA 1 AL NE LY T DR UG 49 10 10 00 36 30 PU 20 TA Ac 50 -1 -2 0. LM 21 MA ti 20 2- 2- 00 O 37 RE ve 69 20 20 0 DO 7 N 76 09 09 SE JA 1 NE PH T AR MA CY CE 68 10 10 00 40 10 SO 32 No Ac PH 18 -0 -2 .0 PE 47 t ti AL 00 4- 2- 00 RS 07 Av ve EX 12 20 20 ai IN 20 09 09 FA la 2 AL bl 50 LY e [address] UG CA PS UL E OK 50 10 10 00 24 12 SO 32 TA Ac OM 38 -0 -0 0. PE 42 MA ti ET 30 2 8- 00 RS 65 RE ve MANUEL 80 20 20 0 N ZI 41 09 09 FA JA NE 6 AL NE -C LY T OD EI DR NE UG SY RU P 00 09 10 00 [address] Ac 11 -2 -0 .0 PE 39 ON ti 51 9- 8- 00 RS 37 E ve 04 20 20 DI 10 09 09 FA XI 3 AL E LY D DR UG CO 50 09 10 00 [address] Ac NC 45 -2 -0 .0 PE 39 ON ti ER 80 9- 8- 00 RS 38 E ve TA 58 20 20 DI 60 09 09 FA XI ER 1 AL E LY D 36 DR MG UG TA BL ET 00 10 10 00 21 6 SO 32 TA Ac 55 -0 -0 .0 PE 42 MA ti 50 2- 8- 00 RS 63 RE ve 30 20 20 N 13 09 09 FA JA 8 AL NE LY T DR UG RA 53 07 10 02 60 30 SO 31 TA Ac NI 74 -2 -0 .0 PE 88 MA ti TI 60 9- 8- 00 RS 15 RE ve DI 25 20 20 N NE 30 09 09 FA JA 5 AL NE 15 LY [address] UG TA BL ET 00 10 10 00 30 10 SO 32 TA Ac 78 -0 -0 .0 PE 42 MA ti 12 2- 8- 00 RS 64 RE ve 11 20 20 N 20 09 09 FA JA 1 AL NE LY T DR UG 50 09 09 00 30 10 SO 32 TA Ac 11 -1 -2 .0 PE 26 MA ti 10 4- 4- 00 RS 50 RE ve 85 20 20 N 10 09 09 FA JA 1 AL NE LY T DR UG AZ 64 09 09 00 6. 5 SO 32 TA Ac IT 67 -1 -2 00 PE 26 MA ti HR 90 4- 4- 0 RS 48 RE ve OM 96 20 20 N YC 10 09 09 FA JA IN 5 AL NE LY T [address] MG UG TA BL ET 60 09 09 00 24 12 SO 32 TA Ac 25 -1 -2 0. PE 26 MA ti 80 4- 4- 00 RS 49 RE ve 23 20 20 0 N 91 09 09 FA JA 6 AL NE LY T DR UG CI 60 07 09 00 15 30 SO 31 TA Ac TA 50 -2 -1 .0 PE 88 MA ti LO 52 9- 0- 00 RS 14 RE ve OK 52 20 20 N AM 00 09 09 FA JA 1 AL NE HB LY T R 40 DR UG MG TA BL ET 00 07 09 01 40 10 SO 31 TA Ac 11 -2 -1 .0 PE 88 MA ti 51 9- 0- 00 RS 16 RE ve 04 20 20 N 10 09 09 FA JA 3 AL NE LY T DR UG 00 07 09 00 30 30 SO 31 TA Ac 00 -2 -1 .0 PE 88 MA ti 60 9- 0- 00 RS 12 RE ve 11 20 20 N 73 09 09 FA JA 1 AL NE LY T DR UG 00 07 09 00 60 30 SO 31 TA Ac AN 37 -2 -1 .0 PE 88 MA ti FA 81 9- 0- 00 RS 13 RE ve CI 16 20 20 N NE 00 09 09 FA JA 1 1 AL NE LY T MG DR TA UG BL ET 60 07 09 01 60 30 SO 31 TA Ac 50 -2 -1 .0 PE 88 MA ti 50 9- 0- 00 RS 15 RE ve 02 20 20 N 50 09 09 FA JA 8 AL NE LY T DR UG CO 50 08 09 00 60 30 SO 32 TA Ac NC 45 -2 -1 .0 PE 12 MA ti ER 80 8- 0- 00 RS 65 RE ve TA 58 20 20 N 60 09 09 FA JA ER 1 AL NE LY T 36 DR MG UG TA BL ET 00 05 08 02 60 30 SO 31 TA Ac AN 37 -2 -1 .0 PE 44 MA ti FA 81 7- 3- 00 RS 79 RE ve CI 16 20 20 N NE 00 09 09 FA JA 1 1 AL NE LY T MG DR TA UG BL ET 60 07 08 00 60 30 SO 31 TA Ac 50 -2 -1 .0 PE 88 MA ti 50 9- 3- 00 RS 15 RE ve 02 20 20 N 50 09 09 FA JA 8 AL NE LY T DR UG CI 60 05 08 01 15 30 SO 31 TA Ac TA 50 -2 -1 .0 PE 44 MA ti LO 52 7- 3- 00 RS 78 RE ve OK 52 20 20 N AM 00 09 09 FA JA 1 AL NE HB LY T R 40 DR UG MG TA BL ET OK 68 07 08 00 40 10 SO 31 TA Ac OM 38 -2 -1 .0 PE 88 MA ti ET 20 9- 3- 00 RS 16 RE ve MANUEL 04 20 20 N ZI 11 09 09 FA JA NE 0 AL NE LY T 25 DR MG UG TA BL ET CO 50 07 08 00 60 30 SO 31 TA Ac NC 45 -2 -1 .0 PE 88 MA ti ER 80 9- 3- 00 RS 17 RE ve TA 58 20 20 N 60 09 09 FA JA ER 1 AL NE LY T 36 DR MG UG TA BL ET 00 07 07 00 30 30 SO 31 TA Ac 00 -1 -3 .0 PE 79 MA ti 60 5- 0- 00 RS 72 RE ve 11 20 20 N 73 09 09 FA JA 1 AL NE LY T DR UG 00 06 07 00 40 14 SO 31 TA Ac 40 -2 -1 .0 PE 68 MA ti 62 9- 6- 00 RS 43 RE ve 04 20 20 N 11 09 09 FA JA 0 AL NE LY T DR UG CO 50 06 07 00 60 30 SO 31 TA Ac NC 45 -2 -1 .0 PE 68 MA ti ER 80 9- 6- 00 RS 42 RE ve TA 58 20 20 N 60 09 09 FA JA ER 1 AL NE LY T 36 DR MG UG TA BL ET 00 05 07 01 60 30 SO 31 TA Ac AN 37 -2 -1 .0 PE 44 MA ti FA 81 7- 6- 00 RS 79 RE ve CI 16 20 20 N NE 00 09 09 FA JA 1 1 AL NE LY T MG DR TA UG BL ET 00 07 07 00 20 10 SO 31 TA Ac 17 -0 -1 .0 PE 71 MA ti 22 6- 6- 00 RS 75 RE ve 98 20 20 N 57 09 09 FA JA 0 AL NE LY T DR UG IB 24 01 07 02 10 13 SO 30 TA Ac UP 38 -2 -1 0. PE 39 MA ti RO 50 1- 6- 00 RS 28 RE ve FE 60 20 20 0 N N 48 09 09 FA JA 20 5 AL NE [address] TA UG BL ET RA 53 04 07 02 60 30 SO 31 TA Ac NI 74 -2 -1 .0 PE 18 MA ti TI 60 2- 6- 00 RS 09 RE ve DI 25 20 20 N NE 30 09 09 FA JA 5 AL NE 15 LY T [address] UG TA BL ET CI 60 05 06 00 30 30 SO 31 TA Ac TA 50 -2 -0 .0 PE 44 MA ti LO 52 7- 4- 00 RS 78 RE ve OK 52 20 20 N AM 00 09 09 FA JA 1 AL NE HB LY T R 40 DR UG MG TA BL ET 00 03 06 02 30 30 SO 30 TA Ac 00 -1 -0 .0 PE 81 MA ti 60 1- 4- 00 RS 10 RE ve 11 20 20 N 73 09 09 FA JA 1 AL NE LY T DR UG RA 53 04 06 01 60 30 SO 31 TA Ac NI 74 -2 -0 .0 PE 18 MA ti TI 60 2- 4- 00 RS 09 RE ve DI 25 20 20 N NE 30 09 09 FA JA 5 AL NE 15 LY T [address] UG TA BL ET 00 07 25 00 60 30 SO 31 TA Ac AN 37 -2 -0 .0 PE 44 MA ti FA 81 7- 4- 00 RS 79 RE ve CI 16 20 20 N NE 00 09 09 FA JA 1 1 AL NE LY T MG DR TA UG BL ET CO 50 05 06 00 60 30 SO 31 TA Ac NC 45 -2 -0 .0 PE 44 MA ti ER 80 7- 4- 00 RS 76 RE ve TA 58 20 20 N 60 09 09 FA JA ER 1 AL NE LY T 36 DR MG UG TA BL ET CE 00 05 06 00 14 7 SO 31 TA Ac PH 14 -2 -0 .0 PE 44 MA ti AL 39 7- 4- 00 RS 77 RE ve EX 89 20 20 N IN 70 09 09 FA JA 5 AL NE [address] L[address] UG CA PS UL E IB 24 01 05 01 10 13 SO 30 TA Ac UP 38 -2 -2 0. PE 39 MA ti RO 50 1- 1- 00 RS 28 RE ve FE 60 20 20 0 N N 48 09 09 FA JA 20 5 AL NE [address] TA UG BL ET CO 50 04 05 00 60 30 SO 31 TA Ac NC 45 -2 -0 .0 PE 18 MA ti ER 80 2 7- RS 10 RE ve TA 58 20 20 N 60 09 09 FA JA ER 1 AL NE LY T 36 DR MG UG TA BL ET 00 03 05 01 30 30 SO 30 TA Ac 00 -1 -0 .0 PE 81 MA ti 60 1 7 RS 10 RE ve 11 20 20 N 73 09 09 FA JA 1 AL NE LY T DR UG RA 53 04 05 00 60 30 SO 31 TA Ac NI 74 -2 -0 .0 PE 18 MA ti TI 60 2 7- 00 RS 09 RE ve DI 25 20 20 N NE 30 09 09 FA JA 5 AL NE 15 LY [address] UG TA BL ET CI 60 02 05 02 15 30 SO 30 TA Ac TA 50 -1 -0 .0 PE 61 MA ti LO 52 9 7- RS 27 RE ve OK 52 20 20 N AM 00 09 09 FA JA 1 AL NE HB LY T R 40 DR UG MG TA BL ET 00 02 05 02 60 30 SO 30 TA Ac AN 37 -1 -0 .0 PE 61 MA ti FA 81 9 7- 00 RS 26 RE ve CI 16 20 20 N NE 00 09 09 FA JA 1 1 AL NE LY T MG DR TA UG BL ET CI 60 02 04 01 15 30 SO 30 TA Ac TA 50 -1 -0 .0 PE 61 MA ti LO 52 9- 9- 00 RS 27 RE ve OK 52 20 20 N AM 00 09 09 FA JA 1 AL NE HB LY T R 40 DR UG MG TA BL ET CO 50 03 04 00 60 30 SO 30 TA Ac NC 45 -1 -0 .0 PE 90 MA ti ER 80 1 9 RS 84 RE ve TA 58 20 20 N 60 09 09 FA JA ER 1 AL NE LY T 36 DR MG UG TA BL ET 00 02 04 01 60 30 SO 30 TA Ac AN 37 -1 -0 .0 PE 61 MA ti FA 81 9 9 00 RS 26 RE ve CI 16 20 20 N NE 00 09 09 FA JA 1 1 AL NE LY T MG DR TA UG BL ET TR 45 03 04 00 80 15 SO 30 TA Ac IA 80 -2 -0 .0 PE 96 MA ti MC 20 RS 79 RE ve IN 06 20 20 N OL 43 09 09 FA JA ON 6 AL NE E LY T 0. 1% DR KAT ATKINS EA M 00 03 00 30 30 SO 30 CO Ac 00 -1 -2 .0 PE 81 MM ti 60 RS 10 UN ve 11 20 20 IT 73 09 09 FA Y 1 AL AL LY LE RG DR Mike STEPHENS & TH MA PS C RA 53 12 02 02 60 30 SO 30 TA Ac NI 74 -1 -2 .0 PE 15 MA ti TI 60 9 6 RS 72 RE ve DI 25 20 20 N NE 30 08 09 FA JA 5 AL NE [address] L[address] UG TA BL ET 00 02 02 00 60 30 SO 30 TA Ac AN 37 -1 -2 .0 PE 61 MA ti FA 81 9 6- 00 RS 26 RE ve CI 16 20 20 N NE 00 09 09 FA JA 1 1 AL NE LY T MG DR TA UG BL ET CI 60 02 02 00 15 30 SO 30 TA Ac TA 50 -1 -2 .0 PE 61 MA ti LO 52 9 6- RS 27 RE ve OK 52 20 20 N AM 00 09 09 FA JA 1 AL NE HB LY T R 40 DR UG MG TA BL ET CO 50 02 02 00 60 30 SO 30 TA Ac NC 45 -1 -2 .0 PE 58 MA ti ER 80 6- 6- 00 RS 64 RE ve TA 58 20 20 N 60 09 09 FA JA ER 1 AL NE LY T 36 DR MG UG TA BL ET SF 60 02 02 00 51 20 SO 30 ME Ac 25 -1 -2 .0 PE 53 AD ti 50 80 0- 6- 00 RS 58 E ve 00 15 20 20 DM 00 [address] 1 AL JE US LY WE LL CR DR EA UG M 64 12 01 01 60 30 SO 30 TA Ac 67 -1 -3 .0 PE 15 MA ti 90 9- 0- 00 RS 72 RE ve 90 20 20 N 60 08 09 FA JA 3 AL NE LY T DR UG IB 24 01 01 00 10 13 SO 30 TA Ac UP 38 -2 -3 0. PE 39 MA ti RO 50 1- 0- 00 RS 28 RE ve FE 60 20 20 0 N N 48 09 09 FA JA 20 5 AL NE [address] TA UG BL ET CO 50 01 01 00 60 30 SO 30 TA Ac NC 45 -2 -3 .0 PE 39 MA ti ER 80 1- 0- 00 RS 27 RE ve TA 58 20 20 N 60 09 09 FA JA ER 1 AL NE LY T 36 DR MG UG TA BL ET CI 60 11 01 02 15 30 SO 29 TA Ac TA 50 -2 -3 .0 PE 89 MA ti LO 52 0- 0- 00 RS 29 RE ve OK 52 20 20 N AM 00 08 09 FA JA 1 AL NE HB LY T R 40 DR UG MG TA BL ET 00 11 02 60 30 SO 29 TA Ac AN 37 -2 -3 .0 PE 89 MA ti FA 81 0- 0- 00 RS 30 RE ve CI 16 20 20 N NE 00 08 09 FA JA 1 1 AL NE LY T MG DR TA UG BL ET 64 12 01 00 60 30 SO 30 TA Ac 67 -1 -0 .0 PE 15 MA ti 90 9- 1- 00 RS 72 RE ve 90 20 20 N 60 08 09 FA JA 3 AL NE LY T DR UG CI 60 11 01 01 15 30 SO 29 TA Ac TA 50 -2 -0 .0 PE 89 MA ti LO 52 0- 1- 00 RS 29 RE ve OK 52 20 20 N AM 00 08 09 FA JA 1 AL NE HB LY T R 40 DR UG MG TA BL ET 17 12 01 00 60 30 SO 30 TA Ac 31 -1 -0 .0 PE 15 MA ti 45 9- 1- 00 RS 73 RE ve 85 20 20 N 10 08 09 FA JA 2 AL NE LY T DR UG 00 11 01 01 60 30 SO 29 TA Ac AN 37 -2 -0 .0 PE 89 MA ti FA 81 0- 1- 00 RS 30 RE ve CI 16 20 20 N NE 00 08 09 FA JA 1 1 AL NE LY T MG DR TA UG BL ET CL 00 11 12 00 20 10 SO 29 TA Ac AR 78 -2 -0 .0 PE 89 MA ti IT 11 0- 4- 00 RS 33 RE ve HR 96 20 20 N OM 16 08 08 FA JA YC 0 AL NE IN LY T 25 DR 0 UG MG TA BL ET 00 11 12 00 21 6 SO 29 TA Ac 55 -2 -0 .0 PE 89 MA ti 50 0- 4- 00 RS 34 RE ve 30 20 20 N 13 08 08 FA JA 8 AL NE LY T DR UG 00 11 12 00 60 30 SO 29 TA Ac AN 37 -2 -0 .0 PE 89 MA ti FA 81 0- 4- 00 RS 30 RE ve CI 16 20 20 N NE 00 08 08 FA JA 1 1 AL NE LY T MG DR TA UG BL ET 63 11 12 00 20 10 SO 29 TA Ac 82 -2 -0 .0 PE 89 MA ti 40 0- 4- 00 RS 57 RE ve 00 20 20 N 81 08 08 FA JA 0 AL NE LY T DR UG OK 50 11 12 00 18 9 SO 29 TA Ac OM 38 -2 -0 0. PE 89 MA ti ET 30 0- 4- 00 RS 32 RE ve MANUEL 80 20 20 0 N ZI 41 08 08 FA JA NE 6 AL NE -C LY T OD EI DR NE UG SY RU P LO 51 03 12 06 30 30 SO 27 CO Ac RA 66 -1 -0 .0 PE 84 MM ti TA 00 0- 4- 00 RS 96 UN ve DI 52 20 20 IT NE 60 08 08 FA Y 5 AL AL 10 L[address] RG [address] Y UG & TA BL TH ET MA PS C CI 60 11 12 00 15 30 SO 29 TA Ac TA 50 -2 -0 .0 PE 89 MA ti LO 52 0- 4- 00 RS 29 RE ve OK 52 20 20 N AM 00 08 08 FA JA 1 AL NE HB LY T R 40 DR UG MG TA BL ET 00 03 12 06 30 30 SO 27 CO Ac 00 -1 -0 .0 PE 84 MM ti 60 0- 4- 00 RS 99 UN ve 11 20 20 IT 73 08 08 FA Y 1 AL AL LY LE RG DR Y UG & TH MA PS C IB 24 11 12 00 60 15 SO 29 TA Ac UP 38 -2 -0 .0 PE 94 MA ti RO 50 6- 4- 00 RS 31 RE ve FE 60 20 20 N N 48 08 08 FA JA 20 5 AL NE [address] TA UG BL ET 17 11 12 00 60 30 SO 29 TA Ac 31 -2 -0 .0 PE 89 MA ti 45 0- 4- 00 RS 31 RE ve 85 20 20 N 10 08 08 FA JA 2 AL NE LY T DR UG 17 10 11 00 60 30 SO 29 TA Ac 31 -2 -0 .0 PE 60 MA ti 45 0- 7- 00 RS 22 RE ve 85 20 20 N 10 08 08 FA JA 2 AL NE LY T DR UG 00 10 11 00 21 6 SO 29 TA Ac 55 -2 -0 .0 PE 60 MA ti 50 0- 7- 00 RS 20 RE ve 30 20 20 N 13 08 08 FA JA 8 AL NE LY T DR UG 59 10 11 00 30 15 SO 29 TA Ac 70 -2 -0 .0 PE 60 MA ti 20 0- 7- 00 RS 21 RE ve 81 20 20 N 90 08 08 FA JA 1 AL NE LY T DR UG 00 03 10 05 30 30 SO 27 CO Ac 00 -1 -2 .0 PE 84 MM ti 60 0- 3- 00 RS 99 UN ve 11 20 20 IT 73 08 08 FA Y 1 AL AL LY LE RG DR Y UG & TH MA PS C LO 60 03 10 05 30 30 SO 27 CO Ac RA 50 -1 -2 .0 PE 84 MM ti TA 50 0- 3- 00 RS 96 UN ve DI 14 20 20 IT NE 70 08 08 FA Y 8 AL AL 10 L[address] Y UG & TA BL TH ET MA PS C HY 00 10 10 00 [address] 16 -1 -2 .3 RL 85 LL ti OC 80 1- 3- 50 IS 88 AF ve OR 01 20 20 LE LO TI 53 [address] OS NE UG IA S 1% IN M C CR EA M 00 08 10 02 60 30 SO 29 No Ac AN 37 -0 -2 .0 PE 03 t ti FA 81 8- 3- 00 RS 21 Av ve CI 16 20 20 ai NE 00 08 08 FA la 1 1 AL bl LY e MG DR TA UG BL ET CI 60 10 10 00 15 30 SO 29 TA Ac TA 50 -0 -0 .0 PE 47 MA ti LO 52 2- 9- 00 RS 05 RE ve OK 52 20 20 N AM 00 08 08 FA JA 1 AL NE HB LY T R 40 DR UG MG TA BL ET 00 08 09 01 60 30 SO 29 No Ac AN 37 -0 -2 .0 PE 03 t ti FA 81 8- 6- 00 RS 21 Av ve CI 16 20 20 ai NE 00 08 08 FA la 1 1 AL bl LY e MG DR TA UG BL ET 14 03 09 05 40 20 SO 27 No Ac 62 -2 -2 .0 PE 95 t ti 90 0- 6- 00 RS 08 Av ve 20 20 20 ai 20 08 08 FA la 1 AL bl LY e DR UG LO 60 03 09 04 30 30 SO 27 No Ac RA 50 -1 -2 .0 PE 84 t ti TA 50 0- 6- 00 RS 96 Av ve DI 14 20 20 ai NE 70 08 08 FA la 8 AL bl [address] UG TA BL ET 00 03 09 04 30 30 SO 27 No Ac 00 -1 -2 .0 PE 84 t ti 60 0- 6- 00 RS 99 Av ve 11 20 20 ai 73 08 08 FA la 1 AL bl LY e DR UG 17 09 09 00 60 30 SO 29 No Ac 31 -1 -2 .0 PE 37 t ti 45 8- 6- 00 RS 07 Av ve 85 20 20 ai 10 08 08 FA la 2 AL bl LY e DR UG OX 50 08 08 00 12 4 SO 29 No Ac YB 11 -1 -2 .0 PE 08 t ti UT 10 4- 8- 00 RS 27 Av ve YN 45 20 20 ai IN 60 08 08 FA la 5 1 AL bl LY e MG DR TA UG BL ET 17 08 08 00 60 30 SO 29 No Ac 31 -1 -2 .0 PE 08 t ti 45 4- 8- 00 RS 30 Av ve 85 20 20 ai 10 08 08 FA la 2 AL bl LY e DR UG 00 03 08 03 30 30 SO 27 No Ac 00 -1 -2 .0 PE 84 t ti 60 0- 8- 00 RS 99 Av ve 11 20 20 ai 73 08 08 FA la 1 AL bl LY e DR UG 14 03 08 04 40 20 SO 27 No Ac 62 -2 -2 .0 PE 95 t ti 90 0- 8- 00 RS 08 Av ve 20 20 20 ai 20 08 08 FA la 1 AL bl LY e DR UG BYRD 53 08 08 00 14 7 SO 29 No Ac LF 48 -1 -2 .0 PE 08 t ti AM 90 4- 8- 00 RS 29 Av ve ET 14 20 20 ai HO 50 08 08 FA la XA 1 AL bl ZO LY e LE -T DR MP UG SS TA BL ET LO 24 03 08 03 30 30 SO 27 No Ac RA 38 -1 -2 .0 PE 84 t ti TA 50 0- 8- 00 RS 96 Av ve DI 47 20 20 ai NE 17 08 08 FA la 8 AL bl [address] UG TA BL ET 00 08 08 00 60 30 SO 29 No Ac AN 37 -0 -1 .0 PE 03 t ti FA 81 8- 4- 00 RS 21 Av ve CI 16 20 20 ai NE 00 08 08 FA la 1 1 AL bl LY e MG DR TA UG BL ET PE 67 08 08 00 30 7 SO 29 No Ac NI 25 -0 -1 .0 PE 01 t ti CI 30 5- 4- 00 RS 02 Av ve LL 20 20 20 ai IN 01 08 08 FA la 0 AL bl VK LY e 25 DR 0 UG MG TA BL ET 17 07 08 00 60 30 SO 28 No Ac 31 -1 -0 .0 PE 89 t ti 45 8- 1- 00 RS 19 Av ve 85 20 20 ai 10 08 08 FA la 2 AL bl LY e DR UG 00 03 08 02 30 30 SO 27 No Ac 00 -1 -0 .0 PE 84 t ti 60 0- 1- 00 RS 99 Av ve 11 20 20 ai 73 08 08 FA la 1 AL bl LY e DR UG LO 24 03 08 02 30 30 SO 27 No Ac RA 38 -1 -0 .0 PE 84 t ti TA 50 0- 1- 00 RS 96 Av ve DI 47 20 20 ai NE 17 08 08 FA la 8 AL bl [address] UG TA BL ET 00 01 07 05 60 30 SO 27 No Ac AN 37 -1 -1 .0 PE 29 t ti FA 81 5- 7- 00 RS 09 Av ve CI 16 20 20 ai NE 00 08 08 FA la 1 1 AL bl LY e MG DR TA UG BL ET 14 03 07 03 40 20 SO 27 No Ac 62 -2 -1 .0 PE 95 t ti 90 0- 7- 00 RS 08 Av ve 20 20 20 ai 20 08 08 FA la 1 AL bl LY e DR UG OK 50 06 07 00 24 14 SO 28 No Ac OM 38 -1 -0 0. PE 61 t ti ET 30 0- 3- 00 RS 51 Av ve MANUEL 80 20 20 0 ai ZI 41 08 08 FA la NE 6 AL bl -C LY e OD EI DR NE UG SY RU P XO 63 06 07 00 15 15 SO 28 No Ac PE 40 -1 -0 .0 PE 61 t ti NE 20 0- 3- 00 RS 53 Av ve X 51 20 20 ai HF 00 08 08 FA la A 1 AL bl [address] Walker STEPHENS IN MANUEL LE R CL 00 06 07 00 20 10 SO 28 No Ac AR 78 -1 -0 .0 PE 61 t ti IT 11 0- 3- 00 RS 52 Av ve HR 96 20 20 ai OM 16 08 08 FA la YC 0 AL bl IN LY e 25 DR 0 UG MG TA BL ET 00 03 07 01 30 30 SO 27 No Ac 00 -1 -0 .0 PE 84 t ti 60 0- 3- 00 RS 99 Av ve 11 20 20 ai 73 08 08 FA la 1 AL bl LY e DR KAT 17 06 07 00 60 30 SO 28 No Ac 31 -2 -0 .0 PE 68 t ti 45 0- 3- 00 RS 01 Av ve 85 20 20 ai 10 08 08 FA la 2 AL bl LY e DR STEPHENS OK 00 06 07 00 15 5 SO 28 No Ac ED 59 -1 -0 .0 PE 61 t ti NI 15 0- 3- 00 RS 55 Av ve SO 44 20 20 ai NE 20 08 08 FA la 5 AL bl [address] UG TA BL ET LO 24 03 07 01 30 30 SO 27 No Ac RA 38 -1 -0 .0 PE 84 t ti TA 50 0- 3- 00 RS 96 Av ve DI 47 20 20 ai NE 17 08 08 FA la 8 AL bl [address] UG TA BL ET CE 00 06 06 00 28 7 SO 28 No Ac PH 14 -0 -1 .0 PE 55 t ti AL 39 3- 2- 00 RS 85 Av ve EX 89 20 20 ai IN 70 08 08 FA la 5 AL bl 50 LY e [address] UG CA PS UL E 50 06 06 00 15 5 SO 28 No Ac 11 -0 -1 .0 PE 55 t ti 10 3- 2- 00 RS 86 Av ve 85 20 20 ai 10 08 08 FA la 1 AL bl LY e DR UG 14 03 06 02 40 20 SO 27 No Ac 62 -2 -0 .0 PE 95 t ti 90 0- 5- 00 RS 08 Av ve 20 20 20 ai 20 08 08 FA la 1 AL bl LY e UG 49 05 06 00 40 13 SO 28 No Ac 88 -1 -0 .0 PE 44 t ti 40 9- 5- 00 RS 59 Av ve 77 20 20 ai 70 08 08 FA la 5 AL bl LY e DR UG OK 68 05 06 00 30 7 SO 28 No Ac OM 38 -1 -0 .0 PE 44 t ti ET 20 9- 5- 00 RS 60 Av ve MANUEL 04 20 20 ai ZI 00 08 08 FA la NE 1 AL bl LY e [address] UG MG TA BL ET 00 01 06 04 60 30 SO 27 No Ac AN 37 -1 -0 .0 PE 29 t ti FA 81 5- 5- 00 RS 09 Av ve CI 16 20 20 ai NE 00 08 08 FA la 1 1 AL bl LY e MG DR TA UG BL ET LO 24 03 05 00 30 30 SO 27 No Ac RA 38 -1 -2 .0 PE 84 t ti TA 50 0- 2- 00 RS 96 Av ve DI 47 20 20 ai NE 17 08 08 FA la 8 AL bl [address] UG TA BL ET 17 05 05 00 60 30 SO 28 No Ac 31 -1 -2 .0 PE 42 t ti 45 5- 2- 00 RS 50 Av ve 85 20 20 ai 10 08 08 FA la 2 AL bl LY e DR UG 00 03 05 00 30 30 SO 27 No Ac 00 -1 -2 .0 PE 84 t ti 60 0- 2- 00 RS 99 Av ve 11 20 20 ai 73 08 08 FA la 1 AL bl LY e DR UG 14 03 05 01 40 20 SO 27 No Ac 62 -2 -0 .0 PE 95 t ti 90 0- 8- 00 RS 08 Av ve 20 20 20 ai 20 08 08 FA la 1 AL bl LY e DR UG OK 10 05 05 00 20 4 SO 28 No Ac OM 70 -0 -0 .0 PE 30 t ti ET 20 1- 8- 00 RS 55 Av ve MANUEL 00 20 20 ai ZI 31 08 08 FA la NE 0 AL bl LY e 25 DR MG UG TA BL ET OK 00 04 05 00 20 8 SO 28 No Ac ED 59 -2 -0 .0 PE 25 t ti NI 15 4- 8- 00 RS 26 Av ve SO 44 20 20 ai NE 20 08 08 FA la 5 AL bl [address] UG TA BL ET 68 04 05 00 20 10 SO 28 No Ac 77 -2 -0 0. PE 25 t ti 40 4- 8- 00 RS 22 Av ve 30 20 20 0 ai 33 08 08 FA la 5 AL bl LY e DR UG 00 01 05 03 60 30 SO 27 No Ac AN 37 -1 -0 .0 PE 29 t ti FA 81 5- 8- 00 RS 09 Av ve CI 16 20 20 ai NE 00 08 08 FA la 1 1 AL bl LY e MG DR LAY UG BL ET 53 04 05 00 18 30 SO 28 No Ac 01 -2 -0 0. PE 25 t ti 40 4- 8- 00 RS 23 Av ve 54 20 20 0 ai 86 08 08 FA la 7 AL bl LY e DR STEPHENS LI 24 04 04 00 12 1 SO 28 No Ac CE 38 -1 -2 0. PE 15 t ti 50 4- 4- 00 RS 98 Av ve TR 11 20 20 0 ai EA 60 08 08 FA la TM 3 AL bl EN LY e T SH DR AM UG PO O 00 08 04 06 30 30 SO 25 No Ac 00 -1 -2 .0 PE 89 t ti 60 3- 4- 00 RS 16 Av ve 11 20 20 ai 73 07 08 FA la 1 AL bl LY e DR STEPHENS LO 24 08 04 05 30 30 SO 25 No Ac RA 38 -1 -2 .0 PE 89 t ti TA 50 3- 4- 00 RS 18 Av ve DI 47 20 20 ai NE 17 07 08 FA la 8 AL bl [address] UG TA BL ET 17 04 04 00 60 30 SO 28 No Ac 31 -0 -2 .0 PE 11 t ti 45 8- 4- 00 RS 16 Av ve 85 20 20 ai 10 08 08 FA la 2 AL bl LY e DR STEPHENS 00 01 04 02 60 30 SO 27 No Ac AN 37 -1 -1 .0 PE 29 t ti FA 81 5- 7- 00 RS 09 Av ve CI 16 20 20 ai NE 00 08 08 FA la 1 1 AL bl LY e MG DR TA UG BL ET 00 03 04 00 12 30 SO 27 No Ac 17 -1 -1 .0 PE 84 t ti 30 0- 7- 00 RS 95 Av ve 71 20 20 ai 60 08 08 FA la 0 AL bl LY e DR UG NA 00 03 04 00 17 30 SO 27 No Ac SO 08 -1 -1 .0 PE 84 t ti NE 51 0- 7- 00 RS 97 Av ve X 28 20 20 ai 50 80 08 08 FA la 1 AL bl MC LY e G NA SA UG L SP RA Y 14 03 04 00 40 20 SO 27 No Ac 62 -2 -1 .0 PE 95 t ti 90 0- 7- 00 RS 08 Av ve 20 20 20 ai 20 08 08 FA la 1 AL bl LY e DR STEPHENS OK 00 03 04 00 6. 15 SO 27 No Ac OV 08 -1 -1 70 PE 84 t ti EN 51 0- 7- 0 RS 94 Av ve TI 13 20 20 ai L 20 08 08 FA la HF 1 AL bl A LY e 90 DR GABRIEL UG G IN MANUEL LE R 63 03 04 00 20 10 SO 27 No Ac 30 -2 -1 .0 PE 98 t ti 40 4- 0- 00 RS 60 Av ve 75 20 20 ai 16 08 08 FA la 0 AL bl LY e UG 00 08 04 05 30 30 SO 25 No Ac 00 -1 -0 .0 PE 89 t ti 60 3- 7- 00 RS 16 Av ve 11 20 20 ai 73 07 08 FA la 1 AL bl LY e DR KAT LO 24 08 04 04 30 30 SO 25 No Ac RA 38 -1 -0 .0 PE 89 t ti TA 50 3- 7- 00 RS 18 Av ve DI 47 20 20 ai NE 17 07 08 FA la 8 AL bl [address] UG TA BL ET 17 03 04 00 60 30 SO 27 No Ac 31 -0 -0 .0 PE 82 t ti 45 7- 7- 00 RS 48 Av ve 85 20 20 ai 10 08 08 FA la 2 AL bl LY e DR STEPHENS 00 01 03 01 60 30 SO 27 No Ac AN 37 -1 -2 .0 PE 29 t ti FA 81 5- 6- 00 RS 09 Av ve CI 16 20 20 ai NE 00 08 08 FA la 1 1 AL bl LY e MG TA UG BL ET 14 03 03 03 40 20 SO 24 No Ac 62 -2 -2 .0 PE 67 t ti 90 0- 6- 00 RS 13 Av ve 20 20 20 ai 20 07 08 FA la 1 AL bl LY e UG 00 01 03 00 12 4 SO 27 No Ac 60 -3 -2 0. PE 45 t ti 31 1- 6- 00 RS 66 Av ve 31 20 20 0 ai 05 08 08 FA la 8 AL bl LY e UG OK 00 08 03 02 6. 30 SO 25 No Ac OV 08 -1 -2 70 PE 89 t ti EN 51 3- 6- 0 RS 19 Av ve TI 13 20 20 ai L 20 07 08 FA la HF 1 AL bl A LY e 90 DR GABRIEL UG G IN MANUEL LE R 17 02 03 00 60 30 SO 27 No Ac 31 -0 -2 .0 PE 54 t ti 45 8- 6- 00 RS 15 Av ve 85 20 20 ai 10 08 08 FA la 2 AL bl LY e DR UG LE 00 01 03 00 30 30 WA 69 No Ac XA 45 -1 -2 .0 L- 35 t ti OK 62 7- 6- 00 MA 97 Av ve O 02 20 20 RT 1 ai 20 00 08 08 la 1 PH bl MG M e 10 TA -0 BL 49 ET 3 00 08 03 04 30 30 SO 25 No Ac 00 -1 -2 .0 PE 89 t ti 60 3- 5- 00 RS 16 Av ve 11 20 20 ai 73 07 08 FA la 1 AL bl LY e DR KAT 00 01 03 00 60 30 SO 27 No Ac AN 37 -1 -2 .0 PE 29 t ti FA 81 5- 5- 00 RS 09 Av ve CI 16 20 20 ai NE 00 08 08 FA la 1 1 AL bl LY e MG DR TA UG BL ET 14 03 03 02 40 20 SO 24 No Ac 62 -2 -2 .0 PE 67 t ti 90 0- 4- 00 RS 13 Av ve 20 20 20 ai 20 07 08 FA la [address] AL bl LY e [address] STEPHENS Immunization Name Date Rout CVX Reac Dose Comm Prov Is Faci e tion ent ider Refu lity Give sed n TDAP 07-0 115 SARMAD No IAN 6-20 ANITHA, ISLE VACC 09 INE [facility] 7 T IC YRS/ PSC > IM Procedures Procedure [place] [address] [facility] PROGESTER 7 SATINDER SATINDER [place] [address] [facility] THYROID 7 SATINDER SATINDER STIMULATI HOLDINGS HOLDINGS NG HORMONE TSH URINE 80328 KAYLA BABB 7 [facility] TEST [facility] [place]ISUAL [place] [address] [facility] ESTRADIOL 7 SATINDER SATINDER HOLDINGS HOLDINGS GON[place]OTRO [address] [facility] J[facility] PIN 7 SATINDER SATINDER FOLLICLE HOLDINGS [place] [address] LAB J[facility] TESTOSTER 7 SATINDER SATINDER ONE FREE HOLDINGS HOLDINGS COLLECTIO 40605 KAYLA FRANKEL YOUNG N VENOUS 7 [facility] BLOOD [facility] VENIPUNCT CTR URE GONADOTRO 50427 [facility] PIN 7 SATINDER SATINDER CHORIONIC HOLD[place] [address] [facility] PROLACTIN 7 SATINDER [place] [address] LAB J[facility] TESTOSTER 7 SATINDER SATINDER ONE TOTAL HOLDINGS [place] [address] LAB J[facility] CHLAMYDIA 7 SATINDER SATINDER HOLDINGS HOLDINGS TRACHOMAT IS AMPLIFIED PROBE TQ IADNA 96084 [facility] NEISSERIA 7 SATINDER SATINDER HOLDINGS HOLDINGS GONORRHOE AE AMPLIFIED PROBE TQ GONADOTRO 94657 [facility] PIN 7 SATINDER SATINDER CHORIONIC HOLDINGS HOLDINGS QUALITATI VE COLLECTIO 03661 JOSE DONATO N VENOUS 7 HEALTH BLOOD SOLUTIONS VENIPUNCT IN URE URINE 75526 JOSE KINGA 7 HEALTH TEST SOLUTIONS VISUAL IN COLOR CMPRSN METHS THERAPEUT 93130 [facility] IC 7 [place] PROPHYLAC D D TIC/DX REGIONAL REGIONAL INJECTION HOS HOS SUBQ/IM CULTURE 46255 [facility] BACTERIAL 7 [place]UM[facility] CUMBER[place]AN D D QUANTTATI REGIONAL REGIONAL VE COLONY HOS HOS COUNT URINE COMPREHEN 32886 [facility] SIVE 7 [place]UM[place]UM[place]AN METABOLIC D D PANEL [facility]OS [facility] GONADOTRO 70937 [facility] PIN 7 [place]UM[place] CUM[place]AN CHORIONIC D D REGIONAL REGIONAL QUALITATI HOS HOS VE URINALYSI 16032 [facility] S 7 [place]UM[place] MICROSCOP D D IC ONLY [facility] BLOOD 41430 [facility] COUNT 7 [place] COMPLETE D D AUTO&AUTO REGIONAL REGIONAL DIFRNTL HOS HOS WBC URINE 51895 [facility] 7 [place]UM[place] TEST D D VISUAL REGIONAL REGIONAL COLOR HOS HOS CMPRSN METHS PUNCTURE 09957 [facility] POTTS ASPIRATIO 7 [place] N ABSCESS EMERGENCY HEMATOMA SERV BULLA/CYS T SIMPLE 44172 [facility] ZHOU REPAIR 7 [place] SCALP/NEC EMERGENCY K/AX/MANNIE PHYS T/TRUNK 2.5CM/< RADEX 23423 [facility] [place] SPINE 7 RADIOLOGY LD IV LUMBOSACR AL 2/3 VIEWS COLLECTIO 74844 PASCUAL GARNER N VENOUS 7 [facility] VENIPUNCT URE RADEX 44078 [facility] [place] GARCÍA WRIST 7 RADIOLOGY COMPLETE MINIMUM 3 VIEWS BLOOD 97378 PAS[facility] [place] COUNT 7 [facility] AUTO&AUTO DIFRNTL WBC RADIOLOGI 04656 PASCU[facility] GARNER C EXAM [address] VIEWS FRONTAL&L ATERAL COMPREHEN 94168 PAS[facility] GARNER SIVE 7 [facility] PANEL IAADIADOO 79901 CLAY PAZ 7 CLINIC INFLUENZA CULTURE 26256 [facility] BACTERIAL 7 SATINDER SATINDER HOLDINGS HOLDINGS QUANTTATI VE COLONY COUNT URINE URINLS 35840 CLAY SALAMANCALER- DIP 7 CLINIC SE STICK/TAB LET REAGNT NON-AUTO MICRSCPY REMOVAL 51939 KAYLA CO RIOJAS NON-BIODE 7 [facility] DELIVERY IMPLANT RADEX 46839 [facility] [place] SCALF ANKLE 6 RADIOLOGY COMPLETE MINIMUM 3 VIEWS URINE 70359 CLAY PARKER 6 CLINIC TEST VISUAL COLOR CMPRSN METHS MRI BRAIN 71204 [facility] [place] KOSTELIC BRAIN 6 RADIOLOGY JOSE STEM W/O W/CONTRAS T MATERIAL INJECTION A9579 PASCUAL GARNER 6 [facility] M BASED MR CONTRAST NOS ML COLLECTIO 86219 CLAY PARKER N VENOUS 6 CLINIC BLOOD VENIPUNCT URE CUL BACT 77936 [facility] XCPT 6 SATINDER SATINDER URINE HOLDINGS HOLDINGS BLOOD/STO OL AEROBIC ISOL CULTURE 65770 [facility] BACTERIAL 6 SATINDER SATINDER ANY HOLDINGS HOLDINGS SOURCE ANAEROBIC ISO&ID SUSCEPTIB 65287 [facility] LTY STDY 6 SATINDER SATINDER ANTIMICRB HOLDINGS HOLDINGS IAL MICRO/AGA R DILUTJ COMPREHEN 49910 [facility] JERRY SIVE 6 SATINDER SATINDER METABOLIC HOLDINGS HOLDINGS PANEL BLOOD 17985 [facility] JERRY COUNT 6 SATINDER SATINDER COMPLETE HOLDINGS HOLDINGS AUTO&AUTO DIFRNTL WBC INSJ 72061 KAYLA BRYANT NON-BIODE 6 [facility] DELIVERY IMPLANT ETONOGEST J7307 KAYLA BRYANT REL 6 FAMILY [facility] IMPL SYS CTR INCL IMPL & SPL GONADOTRO 40203 MEADOWVIE MEADOWVIE PIN 6 W W CHORIONIC REGIONAL REGIONAL MEDICAL MEDICAL QUANTITAT FAUZIA COLLECTIO 77687 MEADOWVIE MEADOWVIE N VENOUS 6 W W BLOOD REGIONAL REGIONAL VENIPUNCT MEDICAL MEDICAL URE RADIOLOGI 89375 [facility] C EXAM 6 EIDER ELENA CHEST 2 RADIOLOGY VIEWS ASSOCIAT FRONTAL&L ATERAL ECG 94158 [facility] ROUTINE 6 [place] CHRISTI ECG EMERGENCY W/LEAST PHYS 12 LDS I&R ONLY COLLECTIO 17359 MEADOWVIE MEADOWVIE N VENOUS 6 W W BLOOD REGIONAL REGIONAL VENIPUNCT MEDICAL MEDICAL URE GONADOTRO 36508 MEADOWVIE MEADOWVIE PIN 6 W W CHORIONIC REGIONAL REGIONAL MEDICAL MEDICAL QUANTITAT FAUZIA GONADOTRO 74416 MEADOWVIE MEADOWVIE PIN 6 W W CHORIONIC REGIONAL REGIONAL MEDICAL MEDICAL QUANTITAT FAUZIA COLLECTIO 41608 MEADOWVIE MEADOWVIE N VENOUS 6 W W BLOOD REGIONAL REGIONAL VENIPUNCT MEDICAL MEDICAL URE URNLS DIP 71366 KAYLA RIOJAS MANNY 6 FAMILY STICK/TAB HEALTH LET RGNT CTR NON-AUTO W/O MICRSCP URNLS DIP 39454 SURES[facility] PRINCE 6 CO [facility] CO HEALTH STICK/TAB LET RGNT DEPARTMEN DEPARTMEN NON-AUTO T T W/O MICRSCP URINE 24495 [facility] PRINCE 6 [facility] CO HEALTH TEST VISUAL DEPARTMEN DEPARTMEN COLOR T T CMPRSN METHS G[place] 49427 [facility] JERRY PIN 6 SATINDER SATINDER CHORIONIC HOLDINGS HOLDINGS QUALITATI VE ACUTE 44451 LAB J[facility] JERRY HEPATITIS 6 SATINDER SATINDER PANEL HOLDINGS HOLDINGS RADIOLOGI 11749 [facility] Edward 6 [facility] TIBIA & FIBULA 2 VIEWS RADIOLOGI 79320 [facility] Edward 6 [facility] KNEE 1/2 VIEWS RADIOLOGI 93042 [facility] EXAM 6 EIDER ELENA KNEE RADIOLOGY COMPLETE ASSOCIAT 4/[place] [address] LAB [facility] LAB JERRY LIPASE 6 SATINDER SATINDER HOLDINGS HOLDINGS GONADOTRO 23779 LAB [facility] LAB JERRY PIN 6 SATINDER SATINDER CHORIONIC HOLDINGS HOLDINGS QUANTITAT FAUZIA BILIRUBIN 40827 [facility] DIRECT 6 SATINDER [place] [address] LAB J[facility] LAB JERRY AMYLASE 6 SATINDER SATINDER HOLDINGS HOLDINGS BLOOD 08685 LAB J[facility] LAB JERRY COUNT 6 SATINDER SATINDER COMPLETE HOLDINGS HOLDINGS AUTO&AUTO DIFRNTL WBC HEMOGLOBI 25597 [facility] LAB JERRY N 6 SATINDER SATINDER GLYCOSYLA HOLDINGS HOLDINGS MAXIMUS A1C COMPREHEN 26868 [facility] LAB JERRY SIVE 6 SATINDER SATINDER METABOLIC HOLDINGS HOLDINGS PANEL COMPREHEN 77378 LAB J[facility] LAB JERRY SIVE 5 SATINDER SATINDER METABOLIC HOLDINGS HOLDINGS PANEL IADNA NOS 81285 LAB J[facility] LAB JERRY 5 SATINDER SATINDER AMPLIFIED HOLDINGS HOLDINGS PROBE TQ EACH ORGANISM IADNA 71622 LAB [facility] LAB JERR[facility] NEISSERIA 5 SATINDER SATINDER HOLDINGS HOLDINGS GONORRHOE AE AMPLIFIED PROBE TQ IADNA 83934 LAB [facility] TRICHOMON 5 SATINDER SATINDER HOLDINGS HOLDINGS VAGINALIS AMPLIFIED PROBE TECH IADNA 68952 LAB [facility] JERR[facility] CHLAMYDIA 5 SATINDER SATINDER HOLDINGS HOLDINGS TRACHOMAT IS AMPLIFIED PROBE TQ GONADOTRO 91585 LAB J[facility] LAB JERRY PIN 5 SATINDER SATINDER CHORIONIC HOLDINGS HOLDINGS QUALITATI VE IADNA 55436 LAB [facility] LAB JERRY PRABHJOT 5 SATINDER SATINDER SPECIES HOLDINGS HOLDINGS AMPLIFIED PROBE TQ BLOOD 84874 [facility] LAB JERRY COUNT 5 SATINDER SATINDER COMPLETE HOLDINGS HOLDINGS AUTO&[place] [address] LAB [facility] LAB JERRY AMYLASE 5 SATINDER SATINDER HOLDINGS HOLDINGS COLLECTIO 33088 CLAY SALGUERO- N VENOUS 5 CLINIC SE [place]Z[facility] BLOOD VENIPUNCT URE HPYLORI 19746 [facility] BREATH 5 SATINDER SATINDER ANAL HOLDINGS HOLDINGS [place] [address] LAB [facility] LAB JERRY LIPASE 5 SATINDER SATINDER HOLDINGS HOLDINGS CULTURE 83424 LAB J[facility] LAB JERRY BACTERIAL 5 SATINDER SATINDER HOLDINGS HOLDINGS QUANTTATI VE COLONY COUNT URINE DESTRUCTI 11070 CLAY PAZ ON BENIGN 5 CLINIC LESIONS UP TO 14 COLLECTIO 49086 CLAY PAZ N VENOUS 5 CLINIC BLOOD VENIPUNCT URE URINLS 48771 CLAY PAZ DIP 5 CLINIC STICK/TAB LET REAGNT NON-AUTO MICRSCPY BLOOD 20520 [facility] LAB JERRY COUNT 5 [facility] COMPLETE HOLDINGS HOLDINGS AUTO&AUTO DIFRNTL WBC COMPREHEN 96654 [facility] LAB JERRY SIVE 5 [facility] METABOLIC HOLDINGS HOLDINGS PANEL PRESSURIZ 14625 CLAY SALGUERO- ED/NONPRE 5 CLINIC SE [facility] SSURIZED INHALATIO N TREATMENT HEPATITIS 54174 SH[facility] MURGUIA B CORE 5 [facility] ANTIBODY INC INC HBCAB TOTAL HEPATITIS 88870 [facility]AL [place] SURF 5 [facility] [place] [address] SHANTAL MURGUIA HEPATITIS 5 [facility] B INC INC SURFACE ANTIGEN GONADOTRO 19717 SHANTAL MURGUIA PIN 5 [facility] [place] [address] SHANTAL MURGUIA PROLACTIN 5 [facility] INC INC HEPATITIS 11523 SH[facility]GU[facility] A 5 [facility] ANTIBODY INC INC HAAB GENERAL 89200 SHANTAL MURGUIA HEALTH 5 [facility] PANEL INC INC LIPID 71545 SH[facility] M[facility]GU[facility] PANEL 5 [facility] INC INC HEPATITIS 10152 SHANTAL MURGUIA C 5 [facility] [place] [address] SHANTAL MURGUIA FREE 5 [facility] THYROXINE INC INC COLLECTIO 65844 SHANTAL [facility] N VENOUS 5 [facility] BLOOD INC INC VENIPUNCT URE URINLS 59217 CLAY SALGUERO- DIP 5 CLINIC SE [facility] STICK/TAB LET REAGNT NON-AUTO MICRSCPY CULTURE 15943 [facility] LAB JERRY BACTERIAL 5 [facility] HOLDINGS HOLDINGS QUANTTATI VE COLONY COUNT URINE INJECTION J1885 XENIA MARSHALLURDES [address] [place] [address] KETOROLAC TROMETHAM INE PER 15 MG THERAPEUT 54011 XENIA MARSHALLURDES IC [address] [place] [address] PROPHYLAC TIC/DX INJECTION SUBQ/IM GROUND A0425 GOLDSMITH GOLDSMITH MILEAGE [address] [place] [address] PER AMBULANCE AMBULANCE STATUTE MILE CRTCHS E0114 GOULDS GOULDS UNDARM 5 DISCOUNT DISCOUNT OTH THAN MEDICAL MEDICAL WOOD PAIR PAD TIP&HNDGR IP RADEX 30568 RADIOLOGY ELVIRA PARKER ANKLE 5 GROUP OF COMPLETE PADUCAH, MINIMUM 3 VIEWS ANKLE L4350 GOULDS GOULDS CONTROL 5 DISCOUNT DISCOUNT ORTHOSIS MEDICAL MEDICAL STIRRUP STYL RIGID PREFAB GROUND A0425 GOLDSMITH GOLDSMITH MILEAGE [address] [place] [address] PER AMBULANCE AMBULANCE STATUTE MILE RADEX 92972 RADIOLOGY ELVIRA PARKER SPINE 5 GROUP OF LUMBOSACR PADUCAH, AL MINIMUM 4 VIEWS AMBULANCE A0429 GOLDSMITH GOLDSMITH SERVICE [address] [place] [address] BLS AMBULANCE AMBULANCE EMERGENCY TRANSPORT AMB A0427 GOLDSMITH GOLDSMITH SERVICE [address] [place] [address] ALS AMBULANCE AMBULANCE EMERGENCY TRANSPORT LEVEL 1 RADEX 56958 RADIOLOGY KRISTY SPINE 5 GROUP OF RHONDA LUMBOSACR PADUCAH, AL MINIMUM 4 VIEWS GROUND A0425 GOLDSMITH GOLDSMITH MILEAGE [address] [place] [address] PER AMBULANCE AMBULANCE STATUTE MILE BASIC 53092 SHANTAL MURGUIA METABOLIC 5 [facility] [place] [address] [facility] LAB[facility], PICKLESIM SURG 5 LLC [facility] PATHOLOGY GROSS&[place] [address] SHANTAL MURGUIA INFUSION 5 [facility] THERAPY/P INC INC ROPHYLAXI S /DX 1ST TO 1 HR THERAPEUT 60362 SHANTAL MURGUIA IC 5 [facility] INJECTION INC INC IV PUSH EACH NEW DRUG BLOOD 49041 SHANTAL MURGUIA COUNT 5 [facility] COMPLETE INC INC AUTO&AUTO DIFRNTL WBC ANESTHESI 67790 [facility] 5 ANESTH MARTHA INCOMPLET OF THE E/MISSED BLUE [place] MISSED 02013 SHANTAL MURGUIA 5 [facility] [place] [address] SHANTAL MURGUIA INFUSION 5 [facility] THERAPY INC INC PROPHYLAX IS/DX EA HOUR US PREG 10687 [facility] UTERUS 5 PHYSICIAN CHARITY REAL TIME S GROUP W/IMAGE DCMTN TRANSVAG HEPATIC 27325 SHANTAL MURGUIA FUNCTION 5 [facility] PANEL INC [facility] G0378 SHANTAL MURGUIA OBSERVATI 5 [facility] ON INC INC SERVICE PER HOUR COLLECTIO 04137 SHANTAL MURGUIA N VENOUS 5 [facility] BLOOD INC INC VENIPUNCT URE OBSERVATI 75327 [facility] ON CARE 5 PHYSICIAN BETH DISCHARGE S GROUP MANAGEMEN T COLLECTIO 69592 SHANTAL MURGUIA N VENOUS 5 [facility] [place] [address] SHANTAL [facility]URGUIA LIPASE 5 [facility] INC INC HEPATITIS 87194 SHANTAL MURGUIA A 5 [facility] ANTIBODY INC INC HAAB GONADOTRO 45686 SHANTAL MURGUIA PIN 5 [facility] CHORIONIC INC INC QUANTITAT FAUZIA INITIAL 99437 [facility] OBSERVATI 5 PHYSICIAN BETH ON S GROUP CARE/DAY 30 MINUTES COMPREHEN 00685 SHANTAL MURGUIA SIVE 5 [facility] METABOLIC INC INC [facility] G0378 SHANTAL MURGUIA OBSERVATI 5 [facility] ON INC INC SERVICE PER HOUR HEPATITIS 03772 SHANTAL MURGUIA C 5 [facility] ANTIBODY INC INC HEPATITIS 14866 SHANTAL MURGUIA B CORE 5 [facility] [place] [address] SH[facility]AL [facility]URGUIA HEPATITIS 5 [facility] B INC INC SURFACE ANTIGEN HEPATITIS 61825 SHANTAL MURGUIA B SURF 5 [facility] ANTIBODY INC INC HBSAB URNLS DIP 07380 [facility] MURGUIA 5 [facility] STICK/TAB INC INC LET REAGENT AUTO MICROSCOP Y BLOOD 35382 SH[facility] MURGUIA COUNT 5 [facility] COMPLETE INC INC AUTO&AUTO DIFRNTL WBC URINE 03589 CLAY PARKER 5 CLINIC TEST VISUAL COLOR CMPRSN [facility] [place] GIN BTW 10 EMERGENCY PM&8 AM SERVI AT 24-HR FACI HEMOGLOBI 15356 LAB [facility] LAB JERRY N 5 SATINDER SATINDER GLYCOSYLA HOLDINGS [place] [address] LAB JERRY LAB JERRY THYROID 5 [facility] STIMULATI HOLD[place] [address] LAB JERRY LAB JERRY FREE 5 [facility] THYROXINE HOLDINGS HOLDINGS COLLECTIO 50840 CLAY PARKER N VENOUS 5 CLINIC BLOOD VENIPUNCT URE REPAIR 78761 [facility] MAXINE INTERMEDI 5 [place] EDW ATE EMERGENCY N/H/F/XTR PHYSI NL GENT 2.5CM/< THERAPEUT 44042 CLAY PARKER IC 4 CLINIC PROPHYLAC TIC/DX INJECTION SUBQ/IM INJECTION J1100 CLAY PARKER 4 CLINIC DEXAMETHO SONE SODIUM PHOSPHATE 1 MG BLOOD 85588 PASCUAL GARNER COUNT 4 [facility] AUTOMATED LIPID 10574 PASCUAL GARNER PANEL 4 [facility] COMPREHEN 55497 PASCUAL GARNER SIVE [address] [place] [address] PANEL CREATINE 78080 PASCUAL GARNER KINASE [address] [place] [address] [place] [address] PASCUAL GARNER THYROID 4 [facility] NG HORMONE TSH RADIOLOGI 13995 PASCUAL GARNER C [address] [place] [address] ON KNEE 3 VIEWS THERAPEUT 23000 CLAY SALGUERO- IC 4 [facility] PROPHYLAC TIC/DX INJECTION SUBQ/IM DEMO&/BRIE 57716 CLAY SALGUERO- L OF PT 4 [facility] UTILIZ AERSL GEN/NEB/I NHLR/IP INJECTION J1030 CLAY SALGUERO- 4 [facility] METHYLPRE DNISOLONE ACETATE 40 MG ALBUTEROL J7611 CLAY SALGUERO- INHAL 4 CLINIC [facility] NON-CP THRU DME CONC FORM 1 MG IPRATROPI J7644 CLAY SALGUERO- UM 4 [facility] BROMIDE INHAL NON-CP U DOSE PER MG ADMN SET A7003 [facility]ILLIE WISE SM VOL 4 HOME HOME NONFILTR MEDICAL MEDICAL PNEUMAT EQUIPME EQUIPME NEBULIZR DISPBL NEBULIZER E0570 [facility] WISE WITH 4 HOME HOME COMPRESSO MEDICAL MEDICAL R EQUIPME EQUIPME PRESSURIZ 46536 CLAY SALGUERO- ED/NONPRE 4 CLINIC [facility] SSURIZED INHALATIO N TREATMENT INJECTION J1030 CLAY SALGUERO- 4 [facility]IN[facility] METHYLPRE DNISOLONE ACETATE 40 MG THERAPEUT 86035 CLAY SALGUERO- IC 4 CLINIC [facility] PROPHYLAC TIC/DX INJECTION SUBQ/IM RADEX 98089 KYLEON KYLEON FINGR [address] [facility] VIEWS URNLS DIP 12312 [facility] [employer], 4 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 STICK/TAB [facility] LET RGNT CO HOS CO HOS AUTO W/O MICROSCOP Y INJECTION J2405 [employer], 4 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 ONDANSETR [facility] ON HCL CO HOS CO HOS PER 1 MG GONADOTRO [address]194 [employer], PIN 4 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 CHORIONIC [facility] CO HOS CO HOS QUALITATI VE BLOOD 61026 [facility] [employer], COUNT 4 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 COMPLETE [facility] AUTO&AUTO [place] [address] [facility] INC, [employer], INFUSION 4 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 THERAPY/P [facility] ROPHYLAXI CO HOS CO HOS S /DX 1ST TO 1 HR BASIC 27820 [facility] INC, [facility] INC, METABOLIC 4 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 PANEL [facility] CALCIUM CO HOS CO HOS TOTAL LIPID 91319 LAB [facility] LAB J[facility]Y PANEL 4 OF SATINDER SATINDER [employer]ING GENERAL 63106 [facility] LAB JERRY HEALTH 4 OF SATINDER PANEL [facility] COLLECTIO 92122 CLAY SIMENTALON N VENOUS 4 CLINIC HEN BLOOD VENIPUNCT URE ANTIBODY 20983 [facility] [employer], [facility] INC, INFLUENZA 4 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 VIRUS [facility] CO HOS CO HOS IAADIADOO 11663 [facility] SALGUERO- [facility] STREPT[facility] CCUS GROUP A RADIOLOGI 75230 TERRI MURRAY C EXAM 3 [facility] CHEST 2 VIEWS FRONTAL&L ATERAL THERAPEUT 35650 CLAY SALGUERO- IC 3 [facility]IN[facility] PROPHYLAC TIC/DX INJECTION SUBQ/IM URINLS 96633 CLAY CLAY DIP 3 CLINIC CLINIC STICK/TAB LET REAGNT NON-AUTO MICRSCPY IAADIADOO 58849 [facility]LAY SALGUERO- 3 [facility] CCUS GROUP A ORTHOTIC 77748 [facility] INC, [facility] INC, MGMT&EHSAN 3 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 [place] UXTR [facility] LXTR&/TRN CO HOS CO HOS K EA 15 RADEX 38738 [facility] [employer], ANKLE 3 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 COMPLETE [facility] MINIMUM 3 CO HOS CO HOS VIEWS COMPREHEN 84889 [facility] [employer], SIVE 3 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 METABOLIC [facility] PANEL CO HOS CO HOS DRUG 95700 [facility] [employer], SCREEN 3 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 QUANTITAT [facility] FAUZIA CO HOS CO HOS LITHIUM SUSCEPTIB 82539 [facility] QUEST LTY STDY 3 DIAGNOSTI DIAGNOSTI ANTIMICRB CS CS IAL MICRO/AGA R DILUTJ CULTURE 33995 [facility] TYPING 3 DIAGNOSTI DIAGNOSTI IMMUNOLOG CS CS IC OTH/THN IMMUNOFLU ORES CUL BACT 40923 [facility] QUEST XCPT 3 DIAGNOSTI DIAGNOSTI URINE CS CS BLOOD/STO OL AEROBIC ISOL COMPREHEN 77800 [employer], SIVE 3 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 METABOLIC RAH RAH PANEL CO HOS CO HOS DRUG 33209 [employer], SCREEN 3 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 QUANTITAT RAH RAH FAUZIA CO HOS CO HOS LITHIUM US SOFT 48792 [employer], TISSUE 3 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 HEAD & RAH RAH NECK REAL CO HOS CO HOS TIME IMGE DOCM THERAPEUT 18021 CLAY JOSE M IC 3 CLINIC STONE PROPHYLAC MEDICAL TIC/DX SVCS INJECTION SUBQ/IM MAX 46234 JENNIFER RODRIGUEZ BREATHING 3 Mar CAPACITY MAXIMAL VOLUNTARY VENTJ PRESSURIZ 71261 JENNIFER RODRIGUEZ ED/NONPRE 3 Mar SSURIZED INHALATIO N TREATMENT RADIOLOGI 53943 [facility] C 2 [facility] EXAMINATI INC INC ON PELVIS 1/2 VIEWS RADEX HIP 03012 [facility] 2 [facility] INC INC L COMPLETE MINIMUM 2 VIEWS CRTCHS E0114 [facility] UNDARM 2 OTH THAN WOOD PAIR PAD TIP&[place] [address] [facility] ABDOMEN & 2 EIDER ELENA PELVIS RADIOLOGY W/CONTRAS ASSOCIAT T MATERIAL RADIOLOGI 46774 [facility] C EXAM 2 EIDER ELENA CHEST 2 RADIOLOGY VIEWS ASSOCIAT FRONTAL&L ATERAL INJECTION J2550 JENNIFER RODRIGUEZ 2 Mar PROMETHAZ INE HCL UP TO 50 MG ADMN SET A7005 ZEN ZALDIVAR W/SM VOL 2 HOSP HOSP NONFILTR EQUIP EQUIP NEBULIZR NON-DISPB L RADIOLOGI 19979 [facility] C EXAM 2 JOY CHEST 2 RADIOLOGY VIEWS ASSOCIAT FRONTAL&L ATERAL ANTIBODY 80766 [employer], [employer], INFLUENZA 2 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 VIRUS [facility] CO HOS CO HOS CULTURE 45362 SHANTAL MURGUIA BACTERIAL 1 [facility] INC [place] [address] SHANTAL MURGUIA ABDOMEN & 1 [facility] PELVIS INC INC W/[place] [address] SHANTAL MURGUIA LIPASE 1 [facility] INC INC URINE 84577 SHANTAL MURGUIA 1 [facility] TEST INC [place] [address] SHANTAL MURGUIA AMYLASE 1 [facility] INC INC BLOOD 49188 SHANTAL MURGUIA COUNT 1 [facility] COMPLETE INC INC AUTO&AUTO DIFRNTL WBC URNLS DIP 54617 SHANTAL MURGUIA 1 [facility] STICK/TAB INC INC LET REAGENT AUTO MICROSCOP Y 3D 79507 KENNEDY KENNEDY RENDERING 1 ELSA ELSA W/INTERP& POSTPROC DIFF WORK STATION COMPREHEN 32803 SHANTAL MURGUIA SIVE 1 [facility] METABOLIC INC INC PANEL LAPAROSCO 20343 Cheyanne ROSA PY SURG 1 MOE COPELAND MD PSC ECTOMY INJECTION J2405 SHANTAL MURGUIA 1 [facility] ONDANSETR INC INC ON HCL PER 1 [place] [address] SHANTAL MURGUIA INFUSION 1 [facility] THERAPY INC INC PROPHYLAX IS/DX EA HOUR LEVEL III 28760 ADRIENNE ADRIENNE SURG 1 RODNEY RODNEY PATHOLOGY GROSS&BETH ROSCOPIC EXAM GONADOTRO 62448 SHANTAL MURGUIA PIN 1 [facility] CHORIONIC INC INC QUALITATI VE BLOOD 15411 SHANTAL MURGUIA COUNT 1 [facility] COMPLETE INC INC AUTO&AUTO DIFRNTL WBC HEPATBL 77638 TEN CAAL DUX SYS 1 [facility] [place] [address] LEANA NEVAREZ ABDOMINAL 1 [facility] REAL RADIOLOGY TIME ASSOCIAT W/IMAGE LIMITED OBSERVATI 90970 JENNIFER RODRIGUEZ ON CARE 1 Mar DISCHARGE MANAGEMEN T RADIOLOGI 18151 [facility] C EXAM 1 FR[facility]ERIC CHEST 2 RADIOLOGY VIEWS ASSOCIAT FRONTAL&L ATERAL URNLS DIP 25738 GRUPO LOMBARDO 1 AJITH AJITH STICK/TAB LET RGNT NON-AUTO W/O MICRSCP URINE 97329 GRUPO LOMBARDO 1 AJITH AJITH TEST VISUAL COLOR CMPRSN METHS COLLECTIO 10143 [facility] N VENOUS 1 Y Y BLOOD [facility] VENIPUNCT URE IMMUNOASS 05928 [facility] AY 1 Y Y ANALYTE [facility] QUAL/SEMI QUAL MULTIPLE STEP C-REACTIV 44421 [facility] E PROTEIN 1 [place] [address] [facility] GAMMAGLOB 1 Y Y [facility] IGD IGG IGM EACH BLOOD 76303 [facility] COUNT 1 Y Y COMPLETE [facility] AUTO&AUTO DIFRNTL WBC URNLS DIP 21023 [facility] 1 Y Y STICK/TAB [facility] LET REAGENT AUTO MICROSCOP Y COMPREHEN 99124 [facility] SIVE 1 Y Y [facility] PANEL RADEX 65968 RA[facility]RE[facility] SPINE 1 CO [facility] BR STANDING SCOLIOSIS RADEX 94943 TERRI MURRAY SPINE 1 JOY [facility] THORACOLU MBAR JUNCTION MIN 2 VIEWS DESTRUCTI 44211 ADVANCED GRAVES ON BENIGN 1 DERMATOLO LES LESIONS GY UP TO 14 DESTRUCTI 42035 ADVANCED GRAVES ON BENIGN 1 DERMATOLO LES LESIONS GY UP TO [address] WANDY CARPIO MARA MEDICAL 1 VIS XM&EVAL WORLD COMPRE NEW PT 1/> VST FITTING 91645 DR WANDY CARPIO MARA SPECTACLE 1 VIS S XCPT WORLD APHAKIA MONOFOCAL SPHERE V2100 DR WANDY CARPIO MARA SINGLE 1 VIS VISION WORLD PLANO +/- 4.00 PER LENS FRAMES V2020 DR WANDY CARPIO MARA PURCHASES 1 VIS WORLD DESTRUCTI 05090 ADVANCED GRAVES ON BENIGN 1 DERMATOLO LES LESIONS GY UP TO 14 INJECTION J1030 CLAY LOMBARDO 1 CLINIC AJITH METHYLPRE PSC DNISOLONE ACETATE 40 MG THERAPEUT 35712 CLAY GRUPO IC 1 CLINIC AJITH PROPHYLAC PSC TIC/DX INJECTION SUBQ/IM INJECTION J1100 CLAY LOMBARDO 1 CLINIC AJITH DEXAMETHO PSC SONE SODIUM PHOSPHATE 1 MG INJECTION J0696 CLAY LOMBARDO 1 CLINIC AJITH CEFTRIAXO PSC NE SODIUM PER 250 MG DESTRUCTI 03728 CLAY GRUPO ON 1 CLINIC AJITH PREMALIGN PSC ANT LESION 1ST RADEX 12903 NELYJOSE F KINGSTONMAN ANKLE 1 [facility] COMPLETE RADIOLOGY MINIMUM 3 ASSOCIAT VIEWS RADEX ABD 74048 TYLER NEVAREZ COMPL 0 [facility] AQT ABD RADIOLOGY W/S/E/D ASSOCIAT VIEWS 1 VIEW CH PURE TONE 62879 BRENDA GUTIERREZ 0 JAROD JAROD AUDIOMETR Y AIR & BONE TYMPANOME 62748 BRENDA SINCLAIRON TRY 0 JAROD JAROD ANALGESIA D9230 NYA NYA 0 DMD, DMD, ANXIOLYSI CHELSEA CHELSEA S INHALATIO N OF NITROUS OXIDE URINE 30911 CLAY RODRIGUEZ 0 CLINIC JOSEFINA TEST PSC VISUAL COLOR CMPRSN METHS ANALGESIA D9230 NYA NYA 0 DMD, DMD, ANXIOLYSI CHELSEA CHELSEA S INHALATIO N OF NITROUS OXIDE COLLECTIO 36982 [facility] N VENOUS 0 CO CO BLOOD [facility] VENIPUNCT URE CUL BACT 36937 [facility] XCPT 0 CO CO URINE [facility] BLOOD/STO OL AEROBIC ISOL SEDIMENTA 85042 [facility] TION RATE 0 CO CO RBC [facility] NON-AUTOM ATED GENERAL 80513 [facility] HEALTH 0 CO [place] [address] [facility] STREPTOCO 0 CO CO CCUS [facility] GROUP A RADIOLOGI 08776 Cheyanne VINES EXAM 0 TINO S CHEST 2 RADIOLOGY VIEWS FRONTAL&L ASSOCIATE ATERAL S PSC URNLS DIP 64650 [facility] MONREAL 0 CO CO STICK/TAB [facility] LET REAGENT AUTO MICROSCOP Y HETEROPHI 63278 RAH ZARATE 0 CO CO ANTIBODIE [facility] S SCREEN APPLICATI 17092 RAH GAN, ON FINGER 0 CO [facility] HOSP[facility] STATIC RADIOLOGI 96388 Cheyanne LEONG EXAM 0 MEDICAL NICK KNEE IMAGING COMPLETE ASSOCIATE 4/MORE S VIEWS ANTIBODY 14255 [facility] HELICOBAC 9 [address] [facility] PYLORI COLLECTIO 40395 [facility] N VENOUS 9 CO OR BLOOD [facility] VENIPUNCT URE RADEX 05552 [facility] SPINE 9 [facility] STAND[facility] SCOLIOSIS RADEX 33938 [facility] SPINE 9 TINO S SCOLIOS RADIOLOGY STUDY W/SUPINE ASSOCIATE & ERECT S PSC STUDY RADIOLOGI 65842 [facility] Edward 9 CO [facility]EE 3 VIEWS APPLICATI 71523 RAH GAN, ON LONG 9 [facility] SPLINT THIGH ANKLE/TOE S RADIOLOGI 11752 [facility] C EXAM 9 EIDER, KNEE RADIOLOGY BRAULIO COMPLETE K 4/MORE ASSOCIATE VIEWS S PSC NEBULIZER E0570 [place] WITH 9 HOME HOME [facility] R EQUIPMENT EQUIPMENT ADMN SET A7005 [place] W/SM VOL 9 HOME HOME NONFILTR MEDICAL MEDICAL NEBULIZR EQUIPMENT EQUIPMENT NON-DISPB L RADIOLOGI 25806 [facility] MON[facility]AL C EXAM 9 CO CO CHEST 2 [facility]PITAL VIEWS FRONTAL&L ATERAL BLOOD 67797 RA[facility] SCHROEDER 9 CO CO [facility] AUTO&AUTO DIFRNTL WBC COLLECTIO 51159 [facility] N VENOUS 9 CO OR BLOOD [facility] VENIPUNCT URE BLOOD 17929 [facility] COUNT 9 CO CO SMEAR [facility] MCRSCP W/MNL DIFRNTL WBC COUNT MAX 68060 CLAY RODRIGUEZ, BREATHING 9 CLINIC LANCE CAPACITY PSC MAXIMAL VOLUNTARY VENTJ NONINVASI 68997 CLAY RODRIGUEZ, VE 9 CLINIC LANCE EAR/PULSE PSC OXIMETRY SINGLE DETER RADIOLOGI 19858 [facility] C 9 [facility] ON KNEE 3 VIEWS APPLICATI 55170 RAH GAN, ON LONG 9 [facility] SPLINT THIGH ANKLE/TOE S TDAP 30880 CLAY RODRIGUEZ, VACCINE 7 9 CLINIC LANCE YRS/> IM PSC ANALGESIA D9230 NYA NYA 9 DMD, DMD, ANXIOLYSI CHELSEA CHELSEA S INHALATIO N OF NITROUS OXIDE RADEX 50947 [facility], SPINE 8 TINO Gordillo SCOLIOS RADIOLOGY STUDY W/SUPINE ASSOCIATE & ERECT S PSC STUDY RADEX 28172 TYLER GERI FINGR 8 TINO Gordillo MINIMUM 2 RADIOLOGY VIEWS ASSOCIATE S PSC URNLS DIP 60142 CLAY RODRIGUEZ, 8 [facility] LANCE STICK/TAB PSC LET RGNT NON-AUTO W/[place] [address] [facility], ABDOMEN 8 TINO S W/CONTRAS RADIOLOGY T MATERIAL ASSOCIATE S PSC CT PELVIS 10412 [facility], TINO Gordillo W/CONTRAS RADIOLOGY T MATERIAL ASSOCIATE S PSC IAADIADOO 00333 CLAY RODRIGUEZ, 8 CLINIC LANCE STREPTOCO PSC CCUS GROUP A INJECTION J2550 CLAY RODRIGUEZ, 8 CLINIC LANCE PROMETHAZ PSC INE HCL UP TO 50 MG MAX 31974 CLAY RODRIGUEZ, BREATHING 8 CLINIC LANCE CAPACITY PSC MAXIMAL VOLUNTARY VENTJ PRESSURIZ 82934 CLAY RODRIGUEZ, ED/NONPRE 8 CLINIC LANCE SSURIZED PSC INHALATIO N TREATMENT RADIOLOGI 53739 TYLER GERI EXAM 8 TINO Gordillo CHEST 2 RADIOLOGY VIEWS FRONTAL&L ASSOCIATE ATERAL S PSC IAADIADOO 83135 CLAY RODRIGUEZ, 8 CLINIC LANCE STREPTOCO PSC CCUS GROUP A WOUND G0168 RAHHEATHER MONREAL CLOSURE 8 CO CO UTILIZING [facility] TISSUE ADHESIVE ONLY SPMTRY 62440 DORIS, DORIS, W/VC 8 TARAH B TARAH B EXPIRATOR Y ALEX W/WO MXML VOL VNTJ Encounters Encounter Start End Date Code Location Performer Type Date OFFICE 73515 [facility] YOUNG OUTPATIEN 7 7 FAMILY T VISIT HEALTH 15 CTR MINUTES OFFICE 79532 JOSE DONATO OUTPATIEN 7 7 HEALTH T VISIT SOLUTIONS 25 IN MINUTES OFFICE 18239 JOSE DONATO OUTPATIEN 7 7 HEALTH T VISIT SOLUTIONS 25 IN MINUTES OFFICE 37349 JOSE DONATO OUTPATIEN 7 7 HEALTH T VISIT SOLUTIONS 15 IN MINUTES EMERGENCY 59061 [facility] BILL 7 7 JEFFERSON DEPARTMEN EMERGENCY T VISIT PHYS MODERATE SEVERITY EMERGENCY 81489 [facility] PROUDFOOT 7 7 [facility]ERSON DEPARTMEN EMERGENCY T VISIT PHYS HIGH/URGE NT SEVERITY HOSPITAL WHITING - 7 7 [facility] OUTPATIEN D T REGIONAL HOS EMERGENCY 81853 [facility] CHEMA 7 7 JEFFERSON DEPARTMEN EMERGENCY T VISIT PHYS LIMITED/M INOR PROB OFFICE 68693 JOSE ZAVALETA OUTPATIEN 7 7 HEALTH II T NEW 10 SOLUTIONS MINUTES IN EMERGENCY 19022 [facility] KATLYN 7 7 [facility]FFERSON DEPARTMEN EMERGENCY T VISIT SERV MODERATE SEVERITY EMERGENCY 92941 [facility] ZHOU 7 7 [facility]ERSON DEPARTMEN EMERGENCY T VISIT PHYS MODERATE SEVERITY EMERGENCY 14734 [facility] CHEMA 7 7 JEFFERSON DEPARTMEN EMERGENCY T VISIT PHYS LOW/MODER SEVERITY EMERGENCY 55396 [facility] KAY 7 7 JEFFERSON DEPARTMEN EMERGENCY T VISIT PHYS MODERATE SEVERITY [facility] [place] - 7 7 [facility] T OFFICE 74747 CLAY PAZ OUTPATIEN 7 7 CLINIC T VISIT 15 MINUTES OFFICE 00325 [facility] P[facility] CLINIC SE T VISIT 15 MINUTES OFFICE 41189 KAYLA RIOJAS OUTPATIEN 7 7 FAMILY T VISIT HEALTH 10 CTR MINUTES EMERGENCY 27993 [facility] 6 6 JEFFERSON DEPARTMEN EMERGENCY T VISIT PHYS MODERATE SEVERITY OFFICE 06630 CLAY PAZ ELENA OUTPATIEN 6 6 CLINIC T VISIT 15 MINUTES OFFICE 63391 CLAY PAZ ELENA OUTPATIEN 6 6 CLINIC T VISIT 15 [facility]UTES [facility] T OFFICE 79714 CLAY PARKER OUTPATIEN 6 6 CLINIC T VISIT 15 MINUTES OFFICE 12083 [facility] PARKER OUTPATIEN 6 6 CLINIC T VISIT 15 MINUTES OFFICE 52307 CLAY PARKER OUTPATIEN 6 6 CLINIC T VISIT 15 MINUTES [facility]OS[facility] - 6 6 [facility] MEDICAL OFFICE 76248 KAYLA FRANKEL BEULAH BRYANT OUTPATIEN 6 6 FAMILY T VISIT HEALTH 15 CTR MINUTES EMERGENCY 75436 [facility] 6 6 JEFFERSON CHRISTI DEPARTMEN EMERGENCY T VISIT PHYS HIGH/URGE NT SEVERITY OFFICE 61441 KAYLA FRANKEL BEULAH BRYANT OUTPATIEN 6 6 FAMILY T VISIT HEALTH 15 CTR MINUTES [facility]OS[facility] - 6 6 [facility] 6 6 [facility] MEDICAL OFFICE 66862 KAYLA FRANKEL WISAM ROSEMARIE OUTPATIEN 6 6 FAMILY T VISIT HEALTH 15 CTR MINUTES EMERGENCY 44154 [facility] 6 6 JEFFERSON DEPARTMEN EMERGENCY T VISIT PHYS HIGH/URGE NT SEVERITY OFFICE 11179 KAYLA CO RIOJAS MANNY OUTPATIEN 6 6 FAMILY T NEW 20 HEALTH MINUTES CTR OFFICE 99091 SURESH PRINCE OUTPATIEN 6 6 CO HEALTH CO HEALTH T NEW 20 MINUTES DEPARTMEN DEPARTMEN T T [facility] [place] - 6 6 [facility] T EMERGENCY 68794 [place] 6 6 [facility] T VISIT MODERATE SEVERITY EMERGENCY 73531 [facility] 6 6 JEFFERSON DEPARTMEN EMERGENCY T VISIT PHYS HIGH/URGE NT SEVERITY OFFICE 88045 CLAY SALGUERO- OUTPATIEN 5 5 CLINIC SE LIZETH T VISIT 15 MINUTES OFFICE 62433 CLAY PAZ OUTPATIEN 5 5 CLINIC T VISIT 15 MINUTES OFFICE 49644 CLAY SALGUERO- OUTPATIEN 5 5 CLINIC SE LIZETH T VISIT 15 MINUTES OFFICE 82445 CLAY SALGUERO- OUTPATIEN 5 5 CLINIC SE LIZETH T VISIT 15 MINUTES HOSPITAL SHANTAL - 5 5 [facility] OUTPATIEN INC T OFFICE 40192 CLAY SALGUERO- OUTPATIEN 5 5 CLINIC SE LIZETH T VISIT 15 MINUTES EMERGENCY 94331 XENIA 5 5 HOSPITAL DEPARTMEN T VISIT MODERATE SEVERITY HOSPITAL XENIA - 5 5 HOSPITAL OUTPATIEN T EMERGENCY 30055 TERRANCE 5 5 MEDICAL DEPARTMEN ASSOCIATE T VISIT S LOW/MODER SEVERITY EMERGENCY 40221 [facility] FINA 5 5 JEFFERSON JR THO DEPARTMEN EMERGENCY T VISIT PHYS MODERATE SEVERITY EMERGENCY 21823 [facility] VANESSA 5 5 JEFFERSON TAR DEPARTMEN EMERGENCY T VISIT PHYS HIGH/URGE NT SEVERITY HOSPITAL SH[facility] - 5 5 [facility] OUTPATIEN INC T EMERGENCY 64602 SARAH CASPER DOU 5 5 PHYSICIAN [facility], [facility] T VISIT HIGH/URGE NT SEVERITY EMERGENCY 92376 SHANTAL 5 5 MEM [facility] INC T VISIT HIGH/URGE NT SEVERITY HOSPITAL SHANTAL - 5 5 [facility] OUTPATIEN [facility] T EMERGENCY 11668 [place] 5 5 [facility] T VISIT LIMITED/M INOR [facility] HOSPITAL [place]YLE[place] - 5 5 [facility] T EMERGENCY 59399 [facility] GIBSON 5 5 JEFFERSON [facility] EMERGENCY T VISIT PHYS MODERATE SEVERITY OFFICE 67450 [facility] 5 CLINIC T VISIT 15 MINUTES EMERGENCY 69066 [facility] KATLYN 5 5 JEFFERSON [facility] EMERGENCY T VISIT SERVI HIGH/URGE NT SEVERITY OFFICE 82389 CLAY PARKER OUTPATIEN 5 5 CLINIC T VISIT 15 MINUTES OFFICE 69372 C[facility] PICKENS OUTPATIEN 5 5 CLINIC SE LIZETH T VISIT 10 MINUTES OFFICE 07464 [facility] PICKENS OUTPATIEN 5 5 CLINIC SE LIZETH T VISIT 10 MINUTES EMERGENCY 13265 [facility] MAXINE 5 5 JEFFERSON [facility] EMERGENCY T VISIT PHYSI HIGH/URGE NT SEVERITY OFFICE 93978 CLAY PARKER OUTPATIEN 4 4 CLINIC T VISIT 15 MINUTES HOSPITAL PASCUAL - 4 4 [facility] KYLEON - 4 4 [facility] T OFFICE 28335 CLAY PICKENS OUTPATIEN 4 4 CLINIC SE LIZETH T VISIT 15 MINUTES OFFICE 28345 CLAY SALGUERO- OUTPATIEN 4 4 CLINIC SE LIZETH T VISIT 15 MINUTES OFFICE 96689 CLAY SALGUERO- OUTPATIEN 4 4 CLINIC SE LIZETH T VISIT 15 MINUTES OFFICE 69708 CLAY SALGUERO- OUTPATIEN 4 4 CLINIC SE LIZETH T VISIT 25 MINUTES OFFICE 08210 CLAY SALGUERO- OUTPATIEN 4 4 CLINIC SE LIZETH T VISIT 15 MINUTES OFFICE 42529 CLAY SALGUERO- OUTPATIEN 4 4 CLINIC SE LIZETH T VISIT 15 MINUTES [facility] [place] - 4 4 [facility] T OFFICE 14286 CLAY SALGUERO- OUTPATIEN 4 4 CLINIC SE LIZETH T VISIT 15 MINUTES OFFICE 74910 CLAY SALGUERO- OUTPATIEN 4 4 CLINIC SE LIZETH T VISIT 25 MINUTES EMERGENCY 23214 [facility], 4 4 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 DEPARTMEN RHA T VISIT CO HOS HIGH/URGE NT SEVERITY HOSPITAL [facility], - 4 4 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 OUTPATIEN RAH T CO HOS EMERGENCY 71240 [facility], 4 4 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 DEPARTMEN RAH T VISIT CO HOS LOW/MODER SEVERITY EMERGENCY 75121 RICK CABRERA 4 4 ASHLEY ASHLEY DEPARTMEN T VISIT MODERATE SEVERITY HOSPITAL [facility], - 4 4 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 OUTPATIEN RAH T CO HOS OFFICE 04678 CLAY SALGUERO- OUTPATIEN 4 4 CLINIC SE LIZETH T VISIT 15 MINUTES HOSPITAL [facility], - 4 4 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 OUTPATIEN RAH T CO HOS OFFICE 17093 CLAY SALGUERO- OUTPATIEN 3 3 CLINIC SE LIZETH T VISIT 15 MINUTES OFFICE 44198 GRAVES GRAVES OUTPATIEN 3 3 LES LES T VISIT 15 MINUTES OFFICE 03300 CLAY SALGUERO- OUTPATIEN 3 3 CLINIC SE LIZETH T VISIT 25 MINUTES OFFICE 89088 CLAY SALGUERO- OUTPATIEN 3 3 CLINIC SE LIZETH T VISIT 25 MINUTES OFFICE 99317 [facility], OUTPATIEN 3 3 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 T VISIT 5 RAH MINUTES CO HOS [facility]OSPITAL [facility], - 3 3 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 OUTPATIEN RAH T CO HOS HOSPITAL [facility] INC, - 3 3 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 OUTPATIEN RAH T CO HOS OFFICE 62148 GRAVES GRAVES OUTPATIEN 3 3 LES LES T VISIT 25 MINUTES HOSPITAL [facility] INC, - 3 3 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 OUTPATIEN RAH T CO HOS [facility] INC, - 3 3 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 OUTPATIEN RAH T CO HOS OFFICE 42911 CLAY SALGUERO- OUTPATIEN 3 3 CLINIC SE LIZETH T VISIT 15 MINUTES OFFICE 51793 CLAY SALGUERO- OUTPATIEN 3 3 CLINIC SE LIZETH T VISIT 15 MINUTES OFFICE 18171 JENNIFER RODRIGUEZ OUTPATIEN 3 3 Mar T VISIT 25 MINUTES HOSPITAL SH[facility] - 2 2 [facility] OUTPATIEN INC T EMERGENCY 76747 ADRIENNE STEWART 2 2 EMERGENCY DEPARTMEN SERVICES T VISIT HIGH/URGE NT SEVERITY EMERGENCY 04648 SHANTAL 2 2 [facility] DEPARTMEN INC T VISIT LOW/MODER SEVERITY OFFICE 73862 JENNIFER RODRIGUEZ OUTPATIEN 2 2 Mar T VISIT 15 MINUTES OFFICE 60509 JENNIFER RODRIGUEZ OUTPATIEN 2 2 Mar T VISIT 15 MINUTES EMERGENCY 22272 ADRIENNE MARIELOSFRANKIE SHORT 2 2 EMERGENCY DEPARTMEN SERVICES T VISIT HIGH/URGE NT SEVERITY OFFICE 76883 GRUPO VEE 2 2 AJITH AJITH T VISIT 25 MINUTES HOSPITAL [facility], - 2 2 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 OUTPATIEN RAH T CO HOS OFFICE 55779 CLAY VEE 2 2 CLINIC JOSEFINA T VISIT PSC 25 MINUTES EMERGENCY 23374 [facility], 2 2 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 DEPARTMEN RAH T VISIT CO HOS MODERATE SEVERITY HOSPITAL [facility], - 2 2 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 OUTPATIEN RAH T CO HOS EMERGENCY 43528 [facility] 1 1 VISIT HIGH SEVERITY& THREAT FUNJ EMERGENCY 56201 SHANTAL 1 1 [facility] DEPARTMEN INC T VISIT HIGH/URGE NT SEVERITY [facility]OSPITAL [facility] - 1 1 [facility] 1 1 [facility] 1 [facility] OFF[facility] 76941 C KHADIJAH CONSULTAT 1 1 MOE MULLINS MD PSC NEW/ESTAB PATIENT 60 MIN [facility] [place] - 1 1 [facility] T OFFICE 33225 CLAY VEE 1 1 CLINIC AJITH T VISIT PSC 15 MINUTES OFFICE 33542 CLAY VEE 1 1 CLINIC AJITH T VISIT PSC 25 MINUTES OFFICE 53873 FLOMENHOF FLOMENHOF CONSULTAT 1 1 T BASHIR T BASHIR ION NEW/ESTAB PATIENT 60 MIN HOSPITAL UNIVERSIT - 1 1 [facility] T OFFICE 27136 CLAY LOMBARDO OUTPATIEN 1 1 CLINIC AJITH T VISIT PSC 25 MINUTES HOSPITAL RAH - 1 1 CO [facility] T OFFICE 17119 CLAY OCTAVIOBenedict OUTPATIEN 1 1 CLINIC JOSEFINA T VISIT PSC 25 MINUTES OFFICE 95511 GRAVES GRAVES OUTPATIEN 1 1 LES LES T VISIT 15 MINUTES OFFICE 48577 ADVANCED GRAVES OUTPATIEN 1 1 DERMATOLO LES T VISIT GY 15 MINUTES OFFICE 64206 ADVANCED GRAVES OUTPATIEN 1 1 DERMATOLO LES T VISIT GY 15 MINUTES OFFICE 64745 ADVANCED GRAVES CONSULTAT 1 1 DERMATOLO LES ION GY NEW/ESTAB PATIENT 40 MIN OFFICE 03425 CLAY CUNNINGHAMN OUTPATIEN 1 1 CLINIC JOSEFINA T VISIT PSC 15 MINUTES OFFICE 08151 CLAY LOMBARDO OUTPATIEN 1 1 CLINIC AJITH T VISIT PSC 25 MINUTES OFFICE 63757 CLAY LOMBARDO OUTPATIEN 1 1 CLINIC AJITH T VISIT PSC 15 MINUTES OFFICE 90168 CLAY LOMBARDO OUTPATIEN 1 1 CLINIC AJITH T VISIT PSC 15 MINUTES OFFICE 53222 CLAY LOMBARDO OUTPATIEN 1 1 CLINIC AJITH T VISIT PSC 15 MINUTES EMERGENCY 98337 RAH 1 1 CO [facility] H[facility] T VISIT MODERATE SEVERITY HOSPITAL RAH - 1 1 CO [facility] T OFFICE 62475 RAH OUTPATIEN 1 1 CO T VISIT 5 HOSPITAL MINUTES HOSPITAL RAH - 1 1 [facility] T OFFICE 90069 CLAY ADITILESLIE OUTPATIEN 1 1 CLINIC JOSEFINA T VISIT PSC 15 MINUTES OFFICE 09121 CLAY ADITIMAGIN OUTPATIEN 0 0 CLINIC JOSEFINA T VISIT PSC 15 MINUTES EMERGENCY 25633 RAH GONZALEZENZO 0 0 CO [facility] T VISIT MODERATE SEVERITY OFFICE 82802 [facility] OUTPATIEN 0 0 [facility] T VISIT PSC 15 MINUTES OFFICE 04313 [facility] OUTPATI[facility] 0 0 [facility] T VISIT PSC 25 MINUTES OFFICE 09196 BRENDA GUTIERREZ OUTPATIEN 0 0 JAROD JAROD T NEW 30 MINUTES OFFICE 84237 [facility] OUTPATI[facility] 0 0 [facility] T VISIT PSC 15 MINUTES OFFICE 94835 [facility] OUTPATIEN 0 0 [facility] T VISIT PSC 15 MINUTES OFFICE 43186 [facility] OUTPATIEN 0 0 [facility] T VISIT PSC 25 MINUTES OFFICE 80562 [facility] OUTPATIEN 0 0 [facility] T VISIT PSC 25 MINUTES HOSPITAL RAH - 0 0 [facility] T OFFICE 48153 [facility], OUTPATIEN 0 0 [facility] T VISIT PSC 25 MINUTES HOSPITAL RAH - 0 0 [facility] T EMERGENCY 08425 RAH 0 0 [facility] T VISIT LIMITED/M INOR PROB OFFICE 33954 [facility], OUTPATIEN 0 0 [facility] T VISIT PSC 15 MINUTES OFFICE 48765 [facility], OUTPATIEN 0 0 [facility] T VISIT PSC 15 MINUTES OFFICE 25746 [place] SURENDRA, OUTPATIEN 0 0 [facility] SAMANTHA J T NEW 20 SERV MINUTES [facility] SHANTAL - 0 0 [facility] OUTPATIEN [facility] T EMERGENCY 20940 ADRIENNE LIN, 0 0 EMERGENCY [facility] T VISIT HIGH/URGE ASSOCIATE NT S [facility] H[facility]PITAL RAH - 9 9 [facility] T EMERGENCY 66052 RAH 9 9 [facility] T VISIT LIMITED/M INOR [facility] RAH - 9 9 [facility] T OFFICE 49470 [facility] RODRIGUEZ OUTPATIEN 9 9 [facility] T VISIT PSC 10 MINUTES EMERGENCY 10304 RAH 9 9 [facility] T VISIT LIMITED/M INOR [facility] RAH - 9 9 [facility] RAH - 9 9 [facility] T OFFICE 81909 LAN DAVENPORTPATIEN 9 9 [facility] T VISIT PSC 25 MINUTES EMERGENCY 49164 RAH 9 9 [facility] T VISIT LIMITED/M INOR PROB OFFICE 02047 [facility] RODRIGUE[facility] OUTPATIEN 9 9 [facility] T VISIT PSC 25 MINUTES EMERGENCY 94093 RAH 9 9 [facility] T VISIT MODERATE SEVERITY HOSPITAL RAH - 9 9 [facility] T OFFICE 25250 [facility] RODRIGUE[facility] OUTPATIEN 9 9 [facility] T VISIT PSC 15 MINUTES PERIODIC 55177 [facility] ROD[facility]IGUE[facility] PREVENTIV 9 9 [facility] E MED EST PSC PATIENT 12-17YRS OFFICE 53703 [facility] ROD[facility]IGUE[facility] OUTPATIEN 9 9 [facility] T VISIT PSC 15 MINUTES OFFICE 78772 [facility] ROD[facility]IG[facility] OUTPATIEN 9 9 [facility] T VISIT PSC 10 MINUTES OFFICE 65355 [facility] OUTPATIEN 8 8 [facility] T VISIT PSC 15 MINUTES EMERGENCY 93567 CLAY RODRIGUEZ, 8 8 CLINIC [facility] T VISIT LOW/MODER SEVERITY HOSPITAL RAH - 8 8 [facility] T EMERGENCY 82352 RAH 8 8 [facility] T VISIT LIMITED/M INOR PROB OFFICE 60299 [facility] ROD[facility]IGUE[facility] OUTPATIEN 8 8 [facility] T VISIT PSC 15 MINUTES OFFICE 81034 [facility] OUTPATIEN 8 8 [facility] T VISIT PSC 15 MINUTES EMERGENCY 24746 RA[facility] GAN, 8 8 [facility] T VISIT MODERATE SEVERITY HOSPITAL RAH - 8 8 [facility] T OFFICE 38153 [facility] 8 8 , MAIKOL M MAIKOL M T VISIT 10 MINUTES HOSPITAL RAH - 8 8 [facility] T EMERGENCY 98432 RAH 8 8 [facility] T VISIT LIMITED/M INOR PROB OFFICE 21548 [facility] R[facility] OUTPATIEN 8 8 [facility] T VISIT PSC 25 MINUTES EMERGENCY 20450 [facility] GAN 8 8 [facility] T VIS[facility]/M INOR PROB OFFICE 35887 [facility] RODRIGUE[facility] OUTPATIEN 8 8 [facility] T VISIT PSC 15 MINUTES OFFICE 54266 [facility] OUTPATIEN 8 8 [facility] T VISIT PSC 15 MINUTES OFFICE 65903 CLAY RODRIGUEZ [facility] 8 8 CL[facility] [place] T VISIT PSC 25 MINUTES HOSPITAL RAH Dominguez 8 CO [facility] T OFFICE 17154 CLAY RODRIGUEZ [facility] 8 8 [facility] [place] T VISIT PSC 15 MINUTES OFFICE 23855 CLAY RODRIGUEZ [facility] 8 8 CL[facility] [place] T VISIT PSC 15 MINUTES HOSPITAL RAH Dominguez 8 CO [facility] T EMERGENCY 73027 RAH ELLIS 8 8 CO , [facility] T VISIT LIMITED/M INOR PROB OFFICE 00601 [facility] 8 8 [place] T VISIT 10 MINUTES HOSPITAL RAH Dominguez 8 CO [facility] T EMERGENCY 66813 RA[facility] 8 8 [facility] [facility]/M INOR PROB
--- OUTSIDE RECORDS SUMMARY | 2017-01-02 02:28 | External Medical Summary Rpt | CCD ---
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 [address] Ac 43 -0 -1 .0 PE 51 ON ti 00 2 RS 78 E ve 53 20 20 DI 01 11 11 FA XI 4 AR E LY D DR UG RI 00 08 08 0 30 30 SO 38 PO Ac SP 09 -0 -0 .0 PE 00 E ti ER [address] ve ID 22 20 20 AC ON 50 11 11 FA Y E 6 AR L 0. LY [address] UG TA BL ET MN 37 05 07 2 [address] Ac IL 00 -0 -2 .0 PE 29 ON ti OS 00 RS 44 E ve EC 45 20 20 DI 50 11 11 FA XI OT 4 AR E C LY D [address] UG MG TA BL ET RI 68 07 07 0 30 30 SO 37 PO Ac SP 38 -1 -1 .0 PE 89 E ti ER [address] ve ID 11 20 20 AC ON 41 11 11 FA Y E 4 AR L [address] TA UG BL ET LI 00 07 07 0 60 30 SO 37 PO Ac TH 05 -1 -1 .0 PE 89 E ti IU [address] ve M 52 20 20 AC CA 73 11 11 FA Y RB 1 AR L ON LY AT E DR 30 UG 0 MG CA P LI 60 07 07 1 [address] Ac ND 43 -1 -1 .0 PE 87 ON ti AN 20 RS 81 E ve E 83 20 20 DI 1% 46 11 11 FA XI 0 AR E SH LY D AM PO DR O UG 00 06 07 2 [address] Ac 43 -0 -0 .0 PE 51 ON ti 00 RS 78 E ve 53 20 20 DI 01 11 11 FA XI 4 AR E LY D DR STEPHENS TR 50 05 06 2 [address] Ac AZ 11 -0 -2 .0 PE 29 ON ti OD 10 00 RS 46 E ve ON 43 20 20 DI E 30 11 11 FA XI 50 3 AR E LY D MG TA UG BL ET CO 50 06 06 0 30 30 SO 37 TA Ac NC 45 -2 -2 .0 PE 67 MA ti ER 80 1 00 RS 33 RE ve TA 58 20 20 N 70 11 11 FA JA ER 1 AR NE LY T 54 DR MG UG TA BL ET TR 45 06 06 1 30 5 SO 37 TA Ac IA 80 -2 -2 .0 PE 67 MA ti MC 20 RS 36 RE ve IN 06 20 20 N OL 53 11 11 FA JA ON 5 AR NE E LY T 0. 5% DR UG CR EA M CI 13 05 06 2 30 30 SO 37 TA Ac TA 66 -0 -1 .0 PE 29 MA ti LO 80 6 6 00 RS 40 RE ve MN 01 20 20 N AM 10 11 11 FA JA 5 AR NE HB LY T R 40 DR UG MG TA BL ET 00 10 06 2 60 30 SO 35 TA Ac AN 37 -0 -1 .0 PE 39 MA ti FA 81 6 6 00 RS 53 RE ve CI 16 20 20 N NE 00 10 11 FA JA 1 1 AR NE LY T MG DR TA UG BL ET 00 05 06 2 [address] Ac 00 -0 -1 .0 PE 29 ON ti 60 6- 6 00 RS 42 E ve 11 20 20 DI 73 11 11 FA XI 1 AR E LY D DR UG MN 37 05 06 2 [address] Ac IL 00 -0 -1 .0 PE 29 ON ti OS 00 6 6 RS 44 E ve EC 45 20 20 DI 50 11 11 FA XI OT 4 AR E C LY D [address] UG MG TA BL ET 00 06 06 2 [address] Ac 43 -0 -0 .0 PE 51 ON ti 00 2 2 RS 78 E ve 53 20 20 DI 01 11 11 FA XI 4 AR E LY D DR UG TR 50 05 05 2 [address] Ac AZ 11 -0 -3 .0 PE 29 ON ti OD 10 RS 46 E ve ON 43 20 20 DI E 30 11 11 FA XI 50 3 AR E LY D MG DR TA UG BL ET 00 10 05 2 60 30 SO 35 TA Ac AN 37 -0 -1 .0 PE 39 MA ti FA 81 6- 2- 00 RS 53 RE ve CI 16 20 20 N NE 00 10 11 FA JA 1 1 AR NE LY T MG DR TA UG BL ET CI 13 05 05 2 30 30 SO 37 TA Ac TA 66 -0 -1 .0 PE 29 MA ti LO 80 6- 2- 00 RS 40 RE ve MN 01 20 20 N AM 10 11 11 FA JA 5 AR NE HB LY T R 40 DR UG MG TA BL ET 00 05 05 2 [address] Ac 00 -0 -1 .0 PE 29 ON ti 60 6- 2- 00 RS 42 E ve 11 20 20 DI 73 11 11 FA XI 1 AR E LY D DR UG MN 37 05 05 2 [address] Ac IL 00 -0 -1 .0 PE 29 ON ti OS 00 6- 2- 00 RS 44 E ve EC 45 20 20 DI 50 11 11 FA XI OT 4 AR E C LY D [address] UG MG TA BL ET 59 02 05 2 17 30 SO 36 TA Ac 31 -1 -0 .0 PE 49 MA ti 00 0- 6- 00 RS 60 RE ve 57 20 20 N 92 11 11 FA JA 0 AR NE LY T DR UG 00 02 05 2 30 30 SO 36 TA Ac 06 -1 -0 .0 PE 49 MA ti 76 0- 6- 00 RS 63 RE ve 07 20 20 N 03 11 11 FA JA 0 AR NE LY T DR UG CO 50 05 05 0 30 30 SO 37 TA Ac NC 45 -0 -0 .0 PE 29 MA ti ER 80 6- 6- 00 RS 41 RE ve TA 58 20 20 N 70 11 11 FA JA ER 1 AR NE LY T 54 DR MG UG TA BL ET TR 50 02 04 2 30 30 SO 36 TA Ac AZ 11 -1 -2 .0 PE 49 MA ti OD 10 0- 9- 00 RS 61 RE ve ON 43 20 20 N E 30 11 11 FA JA 50 3 AR NE LY T MG DR TA UG BL ET 00 02 04 2 30 30 SO 36 TA Ac 00 -1 -1 .0 PE 49 MA ti 60 0- 1- 00 RS 58 RE ve 11 20 20 N 73 11 11 FA JA 1 AR NE LY T DR UG MN 37 02 04 2 56 28 SO 36 TA Ac IL 00 -1 -1 .0 PE 49 MA ti OS 00 0- 1- 00 RS 59 RE ve EC 45 20 20 N 50 11 11 FA JA OT 4 AR NE C LY T [address] UG MG TA BL ET 00 02 04 2 60 30 SO 36 TA Ac AN 37 -1 -1 .0 PE 49 MA ti FA 81 0- 1- 00 RS 62 RE ve CI 16 20 20 N NE 00 11 11 FA JA 1 1 AR NE LY T MG DR TA UG BL ET CI 13 02 04 2 30 30 SO 36 TA Ac TA 66 -1 -1 .0 PE 49 MA ti LO 80 0- 1- 00 RS 64 RE ve MN 01 20 20 N AM 10 11 11 FA JA 5 AR NE HB LY T R 40 DR UG MG TA BL ET CO 50 04 04 0 30 30 SO 37 TA Ac NC 45 -0 -0 .0 PE 03 MA ti ER 80 7- 7- 00 RS 48 RE ve TA 58 20 20 N 70 11 11 FA JA ER 1 AR NE LY T 54 DR MG UG TA BL ET 00 11 04 5 [address] Ac 43 -0 -0 .0 PE 65 ON ti 00 3- 7- RS 00 E ve 53 20 20 DI 01 10 11 FA XI 4 AR E LY D DR UG TR 50 02 03 2 30 30 SO 36 TA Ac AZ 11 -1 -2 .0 PE 49 MA ti OD 10 0- 9- 00 RS 61 RE ve ON 43 20 20 N E 30 11 11 FA JA 50 3 AR NE LY T MG DR TA UG BL ET CO 50 03 03 0 30 30 SO 36 TA Ac NC 45 -1 -1 .0 PE 78 MA ti ER 80 0- 0- 00 RS 30 RE ve TA 58 20 20 N 70 11 11 FA JA ER 1 AR NE LY T 54 DR MG UG TA BL ET MN 68 03 03 0 20 7 SO 36 TA Ac OM 38 -1 -1 .0 PE 78 MA ti ET 20 0- 0- 00 RS 29 RE ve MANUEL 04 20 20 N ZI 11 11 11 FA JA NE 0 AR NE LY T 25 DR MG UG TA BL ET CI 13 02 03 2 30 30 SO 36 TA Ac TA 66 -1 -0 .0 PE 49 MA ti LO 80 0- 9- 00 RS 64 RE ve MN 01 20 20 N AM 10 11 11 FA JA 5 AR NE HB LY T R 40 DR UG MG TA BL ET 00 02 03 2 60 30 SO 36 TA Ac AN 37 -1 -0 .0 PE 49 MA ti FA 81 0- 9- 00 RS 62 RE ve CI 16 20 20 N NE 00 11 11 FA JA 1 1 AR NE LY T MG DR TA UG BL ET MN 37 02 03 2 56 28 SO 36 TA Ac IL 00 -1 -0 .0 PE 49 MA ti OS 00 0- 9- 00 RS 59 RE ve EC 45 20 20 N 50 11 11 FA JA OT 4 AR NE C LY T [address] UG MG TA BL ET 00 02 03 2 30 30 SO 36 TA Ac 00 -1 -0 .0 PE 49 MA ti 60 0- 9- 00 RS 58 RE ve 11 20 20 N 73 11 11 FA JA 1 AR NE LY T DR UG 00 11 03 5 [address] Ac 43 -0 -0 .0 PE 65 ON ti 00 3- 7- 00 RS 00 E ve 53 20 20 DI 01 10 11 FA XI 4 AR E LY D DR UG TR 50 02 02 2 30 30 SO 36 TA Ac AZ 11 -1 -2 .0 PE 49 MA ti OD 10 0- 3- 00 RS 61 RE ve ON 43 20 20 N E 30 11 11 FA JA 50 3 AR NE LY T MG DR TA UG BL ET CI 13 02 02 2 30 30 SO 36 TA Ac TA 66 -1 -1 .0 PE 49 MA ti LO 80 0- 0- 00 RS 64 RE ve MN 01 20 20 N AM 10 11 11 FA JA 5 AR NE HB LY T R 40 DR UG MG TA BL ET 00 02 02 2 30 30 SO 36 TA Ac 06 -1 -1 .0 PE 49 MA ti 76 0- 0- 00 RS 63 RE ve 07 20 20 N 03 11 11 FA JA 0 AR NE LY T DR STEPHENS 00 02 02 2 60 30 SO 36 TA Ac AN 37 -1 -1 .0 PE 49 MA ti FA 81 0- 0- 00 RS 62 RE ve CI 16 20 20 N NE 00 11 11 FA JA 1 1 AR NE LY T MG DR TA UG BL ET 59 02 02 2 17 30 SO 36 TA Ac 31 -1 -1 .0 PE 49 MA ti 00 0- 0- 00 RS 60 RE ve 57 20 20 N 92 11 11 FA JA 0 AR NE LY T DR UG MN 37 02 02 2 56 28 SO 36 TA Ac IL 00 -1 -1 .0 PE 49 MA ti OS 00 0- 0- 00 RS 59 RE ve EC 45 20 20 N 50 11 11 FA JA OT 4 AR NE C LY T [address] STEPHENS MG TA BL ET 00 02 02 2 30 30 SO 36 TA Ac 00 -1 -1 .0 PE 49 MA ti 60 0- 0- 00 RS 58 RE ve 11 20 20 N 73 11 11 FA JA 1 AR NE LY T DR UG CO 50 02 02 0 30 30 SO 36 TA Ac NC 45 -1 -1 .0 PE 49 MA ti ER 80 0- 0- 00 RS 57 RE ve TA 58 20 20 N 70 11 11 FA JA ER 1 AR NE LY T 54 DR MG UG TA BL ET 00 11 02 5 [address] Ac 43 -0 -0 .0 PE 65 ON ti 00 3- 7- 00 RS 00 E ve 53 20 20 DI 01 10 11 FA XI 4 AR E LY D DR UG 60 01 01 0 24 6 SO 36 TA Ac 25 -2 -2 0. PE 33 MA ti 80 4- 4- 00 RS 06 RE ve 23 20 20 0 N 91 11 11 FA JA 6 AR NE LY T DR UG ME 51 01 01 0 21 6 SO 36 TA Ac TH 99 -2 -2 .0 PE 33 MA ti YL 10 4- 4- 00 RS 05 RE ve MN 18 20 20 N ED 83 11 11 FA JA NI 1 AR NE SO LY T LO NE DR 4 UG MG DO SE PK AZ 00 01 01 0 6. 5 SO 36 TA Ac IT 78 -2 -2 00 PE 33 MA ti HR 11 4- 4- 0 RS 04 RE ve OM 49 20 20 N YC 66 11 11 FA JA IN 8 AR NE LY T [address] MG UG TA BL ET TR 50 11 01 2 30 30 SO 35 TA Ac AZ 11 -1 -2 .0 PE 74 MA ti OD 10 1- 4- 00 RS 13 RE ve ON 43 20 20 N E 30 10 11 FA JA 50 3 AR NE LY T MG DR TA UG BL ET CI 13 11 01 2 30 30 SO 35 TA Ac TA 66 -0 -1 .0 PE 68 MA ti LO 80 8- 2- 00 RS 96 RE ve MN 01 20 20 N AM 10 10 11 FA JA 5 AR NE HB LY T R 40 DR UG MG TA BL ET MN 37 11 01 2 56 28 SO 35 TA Ac IL 00 -0 -1 .0 PE 68 MA ti OS 00 8- 2- 00 RS 93 RE ve EC 45 20 20 N 50 10 11 FA JA OT 4 AR NE C LY T [address] UG MG TA BL ET 00 11 01 2 30 30 SO 35 TA Ac 00 -0 -1 .0 PE 68 MA ti 60 8- 2- 00 RS 94 RE ve 11 20 20 N 73 10 11 FA JA 1 AR NE LY T DR UG 00 11 01 2 60 30 SO 35 TA Ac AN 37 -0 -1 .0 PE 68 MA ti FA 81 8- 2- 00 RS 95 RE ve CI 16 20 20 N NE 00 10 11 FA JA 1 1 AR NE LY T MG DR TA UG BL ET CO 50 01 01 0 30 30 SO 36 TA Ac NC 45 -1 -1 .0 PE 22 MA ti ER 80 0- 0- 00 RS 05 RE ve TA 58 20 20 N 70 11 11 FA JA ER 1 AR NE LY T 54 DR MG UG TA BL ET HY 00 01 01 0 30 10 SO [address] 16 -0 -0 .0 PE 17 MA ti OC 80 4- 4- 00 RS 23 RE ve OR 08 20 20 N TI 03 11 11 FA JA SO 1 AR NE NE LY T 2. DR 5% UG CR EA M [place] 45 01 01 0 30 10 SO [address] 80 -0 -0 .0 PE 17 MA ti AT 20 4- 4- 00 RS 22 RE ve IN 04 20 20 N 81 11 11 FA JA 10 1 AR NE 0, LY T [address] UN UG IT S/ GM OI NT 00 11 01 5 [address] Ac 43 -0 -0 .0 PE 65 ON ti 00 3- 3- 00 RS 00 E ve 53 20 20 DI 01 10 11 FA XI 4 AR E LY D DR UG TR 50 11 12 2 30 30 SO 35 TA Ac AZ 11 -1 -2 .0 PE 74 MA ti OD 10 1- 0- 00 RS 13 RE ve ON 43 20 20 N E 30 10 10 FA JA 50 3 AR NE LY T MG DR TA UG BL ET CO 50 12 12 0 30 30 SO 35 TA Ac NC 45 -1 -1 .0 PE 99 MA ti ER 80 0- 0- 00 RS 43 RE ve TA 58 20 20 N 70 10 10 FA JA ER 1 AR NE LY T 54 DR MG UG TA BL ET CI 13 11 12 2 30 30 SO 35 TA Ac TA 66 -0 -0 .0 PE 68 MA ti LO 80 8- 8- 00 RS 96 RE ve MN 01 20 20 N AM 10 10 10 FA JA 5 AR NE HB LY T R 40 DR UG MG TA BL ET MN 37 11 12 2 56 28 SO 35 TA Ac IL 00 -0 -0 .0 PE 68 MA ti OS 00 8- 8- 00 RS 93 RE ve EC 45 20 20 N 50 10 10 FA JA OT 4 AR NE C LY T [address] UG MG TA BL ET 00 11 12 2 30 30 SO 35 TA Ac 00 -0 -0 .0 PE 68 MA ti 60 8- 8- 00 RS 94 RE ve 11 20 20 N 73 10 10 FA JA 1 AR NE LY T DR UG 00 11 12 2 60 30 SO 35 TA Ac AN 37 -0 -0 .0 PE 68 MA ti FA 81 8- 8- 00 RS 95 RE ve CI 16 20 20 N NE 00 10 10 FA JA 1 1 AR NE LY T MG DR TA UG BL ET 00 11 12 5 [address] Ac 43 -0 -0 .0 PE 65 ON ti 00 3- 2- 00 RS 00 E ve 53 20 20 DI 01 10 10 FA XI 4 AR E LY D DR UG ON 00 11 11 0 6. 30 SO 35 TA Ac DA 78 -1 -1 00 PE 80 MA ti NS 11 8- 8- 0 RS 42 RE ve ET 68 20 20 N RO 13 10 10 FA JA N 1 AR NE HC LY T L 8 DR MG UG TA BL ET TR 50 11 11 2 30 30 SO 35 TA Ac AZ 11 -1 -1 .0 PE 74 MA ti OD 10 1- 1- 00 RS 13 RE ve ON 43 20 20 N E 30 10 10 FA JA 50 3 AR NE LY T MG DR TA UG BL ET CO 50 11 11 0 30 30 SO 35 TA Ac NC 45 -0 -0 .0 PE 68 MA ti ER 80 8- 8- 00 RS 99 RE ve TA 58 20 20 N 70 10 10 FA JA ER 1 AR NE LY T 54 DR MG UG TA BL ET 64 11 11 2 60 30 SO 35 TA Ac 98 -0 -0 .0 PE 68 MA ti 00 8- 8- 00 RS 98 RE ve 12 20 20 N 30 10 10 FA JA 1 AR NE LY T DR UG 00 11 11 2 30 30 SO 35 TA Ac 06 -0 -0 .0 PE 68 MA ti 76 8- 8- 00 RS 97 RE ve 07 20 20 N 03 10 10 FA JA 0 AR NE LY T DR UG CI 13 11 11 2 30 30 SO 35 TA Ac TA 66 -0 -0 .0 PE 68 MA ti LO 80 8- 8- 00 RS 96 RE ve MN 01 20 20 N AM 10 10 10 FA JA 5 AR NE HB LY T R 40 DR UG MG TA BL ET 00 11 11 2 60 30 SO 35 TA Ac AN 37 -0 -0 .0 PE 68 MA ti FA 81 8 8- 00 RS 95 RE ve CI 16 20 20 N NE 00 10 10 FA JA 1 1 AR NE LY T MG DR TA UG BL ET 00 11 11 2 30 30 SO 35 TA Ac 00 -0 -0 .0 PE 68 MA ti 60 8- 8- 00 RS 94 RE ve 11 20 20 N 73 10 10 FA JA 1 AR NE LY T DR UG MN 37 11 11 2 56 28 SO 35 TA Ac IL 00 -0 -0 .0 PE 68 MA ti OS 00 8 8 00 RS 93 RE ve EC 45 20 20 N 50 10 10 FA JA OT 4 AR NE C LY T [address] UG MG TA BL ET 59 11 11 2 17 30 SO 35 TA Ac 31 -0 -0 .0 PE 68 MA ti 00 8 8 RS 92 RE ve 57 20 20 N 92 10 10 FA JA 0 AR NE LY T DR UG BE 68 11 11 0 [address] Ac NZ 38 -0 -0 .0 PE 64 ON ti ON 20 3 3 RS 98 E ve AT 24 20 20 DI AT 80 10 10 FA XI E 1 AR E 20 LY [address] UG CA PS UL E CE 68 11 11 0 [address] Ac FU 18 -0 -0 .0 PE 64 ON ti RO 00 3 3- 00 RS 99 E ve XI 30 20 20 DI ME 26 10 10 FA XI 0 AR E AX LY D ET IL DR UG 25 0 MG TA B 00 11 11 5 [address] Ac 43 -0 -0 .0 PE 65 ON ti 00 3- 3- 00 RS 00 E ve 53 20 20 DI 01 10 10 FA XI 4 AR E LY D DR UG TR 51 11 11 0 5. [address] Ac IA 67 -0 -0 00 PE 65 ON ti MC 21 3- 3- 0 RS 01 E ve IN 26 20 20 DI OL 70 10 10 FA XI ON 5 AR E E LY D 0. 1% DR UG PA ST E 64 11 11 0 [address] Ac 37 -0 -0 .0 PE 65 ON ti 60 3- 3- 00 RS 02 E ve 54 20 20 DI 40 10 10 FA XI 1 AR E LY D DR UG TR 50 08 10 2 30 30 SO 34 TA Ac AZ 11 -1 -1 .0 PE 91 MA ti OD 10 0- 3- 00 RS 58 RE ve ON 43 20 20 N E 30 10 10 FA JA 50 3 AR NE LY T MG DR TA UG BL ET 00 10 10 0 10 7 SO 35 TA Ac 90 -1 -1 .0 PE 45 MA ti 40 2- 2- 00 RS 33 RE ve 79 20 20 N 31 10 10 FA JA 0 AR NE LY T DR UG CE 68 10 10 0 20 10 SO 35 TA Ac FP 18 -0 -0 .0 PE 39 MA ti RO 00 6- 6 00 RS 49 RE ve ZI 40 20 20 N L 30 10 10 FA JA 25 1 AR NE [address] TA UG BL ET 60 10 10 0 24 6 SO 35 TA Ac 25 -0 -0 0. PE 39 MA ti 80 6- 6- 00 RS 48 RE ve 23 20 20 0 N 91 10 10 FA JA 6 AR NE LY T DR UG BE 68 10 10 0 30 10 SO 35 TA Ac NZ 38 -0 -0 .0 PE 39 MA ti ON 20 6- 6 RS 47 RE ve AT 24 20 20 N AT 80 10 10 FA JA E 1 AR NE 20 L[address] UG CA PS UL E DI 00 10 10 0 20 5 SO 35 TA Ac PH 37 -0 -0 .0 PE 39 MA ti EN 80 6- 6- 00 RS 46 RE ve OX 41 20 20 N YL 51 10 10 FA JA AT 0 AR NE E- LY T AT RO DR P UG 2. 5- 0. 02 5 CO 50 10 10 0 30 30 SO 35 TA Ac NC 45 -0 -0 .0 PE 39 MA ti ER 80 6- 6- 00 RS 45 RE ve TA 58 20 20 N 70 10 10 FA JA ER 1 AR NE LY T 54 DR MG UG TA BL ET MN 00 10 10 0 15 5 SO 35 TA Ac ED 59 -0 -0 .0 PE 39 MA ti NI 15 6- 6- 00 RS 44 RE ve SO 44 20 20 N NE 20 10 10 FA JA 5 AR NE [address] UG TA BL ET 00 07 10 2 30 30 SO 34 TA Ac 06 -2 -0 .0 PE 78 MA ti 76 6- 6- 00 RS 81 RE ve 07 20 20 N 03 10 10 FA JA 0 AR NE LY T DR UG MN 37 07 10 2 28 28 SO 34 TA Ac IL 00 -2 -0 .0 PE 78 MA ti OS 00 6- 5- 00 RS 82 RE ve EC 45 20 20 N 50 10 10 FA JA OT 4 AR NE C LY T [address] UG MG TA BL ET CI 13 07 10 2 30 30 SO 34 TA Ac TA 66 -2 -0 .0 PE 78 MA ti LO 80 6- 5- 00 RS 80 RE ve MN 01 20 20 N AM 10 10 10 FA JA 5 AR NE HB LY T R 40 DR UG MG TA BL ET 00 07 10 2 60 30 SO 34 TA Ac AN 37 -2 -0 .0 PE 78 MA ti FA 81 6- 5- 00 RS 79 RE ve CI 16 20 20 N NE 00 10 10 FA JA 1 1 AR NE LY T MG DR TA UG BL ET 00 07 10 2 30 30 SO 34 TA Ac 00 -2 -0 .0 PE 78 MA ti 60 6- 5- 00 RS 78 RE ve 11 20 20 N 73 10 10 FA JA 1 AR NE LY T DR UG TR 50 08 09 2 30 30 SO 34 TA Ac AZ 11 -1 -1 .0 PE 91 MA ti OD 10 0- 0- 00 RS 58 RE ve ON 43 20 20 N E 30 10 10 FA JA 50 3 AR NE LY T MG DR TA UG BL ET 60 09 09 0 18 9 SO 35 TA Ac 25 -0 -0 0. PE 10 MA ti 80 2- 2- 00 RS 95 RE ve 23 20 20 0 N 91 10 10 FA JA 6 AR NE LY T DR UG 00 09 09 0 21 6 SO 35 TA Ac 55 -0 -0 .0 PE 10 MA ti 50 2- 2- 00 RS 94 RE ve 30 20 20 N 13 10 10 FA JA 8 AR NE LY T DR UG CE 68 09 09 0 10 5 SO 35 TA Ac FD 18 -0 -0 .0 PE 10 MA ti IN 00 2- 2- 00 RS 93 RE ve IR 71 20 20 N 16 10 10 FA JA 30 0 AR NE [address] CA UG PS UL E MN 37 07 08 2 28 28 SO 34 TA Ac IL 00 -2 -2 .0 PE 78 MA ti OS 00 6- 7- 00 RS 82 RE ve EC 45 20 20 N 50 10 10 FA JA OT 4 AR NE C LY T [address] UG MG TA BL ET CI 13 07 08 2 30 30 SO 34 TA Ac TA 66 -2 -2 .0 PE 78 MA ti LO 80 6- 6- 00 RS 80 RE ve MN 01 20 20 N AM 10 10 10 FA JA 5 AR NE HB LY T R 40 DR UG MG TA BL ET 00 07 08 2 30 30 SO 34 TA Ac 00 -2 -2 .0 PE 78 MA ti 60 6- 6- 00 RS 78 RE ve 11 20 20 N 73 10 10 FA JA 1 AR NE LY T DR UG 00 07 08 2 60 30 SO 34 TA Ac AN 37 -2 -2 .0 PE 78 MA ti FA 81 6- 6- 00 RS 79 RE ve CI 16 20 20 N NE 00 10 10 FA JA 1 1 AR NE LY T MG DR TA UG BL ET CO 50 08 08 0 30 30 SO 35 TA Ac NC 45 -2 -2 .0 PE 03 MA ti ER 80 5- 5- 00 RS 59 RE ve TA 58 20 20 N 70 10 10 FA JA ER 1 AR NE LY T 54 DR MG UG TA BL ET 64 08 08 0 20 10 SO 34 TA Ac 37 -1 -1 .0 PE 91 MA ti 60 0- 0- 00 RS 56 RE ve 54 20 20 N 40 10 10 FA JA 1 AR NE LY T DR UG BE 68 08 08 0 30 10 SO 34 TA Ac NZ 38 -1 -1 .0 PE 91 MA ti ON 20 0- 0- 00 RS 57 RE ve AT 24 20 20 N AT 80 10 10 FA JA E 1 AR NE 20 LY [address] UG CA PS UL E TR 50 08 08 2 30 30 SO 34 TA Ac AZ 11 -1 -1 .0 PE 91 MA ti OD 10 0- 0- 00 RS 58 RE ve ON 43 20 20 N E 30 10 10 FA JA 50 3 AR NE LY T MG DR TA UG BL ET CE 68 08 08 0 14 7 SO 34 TA Ac FP 18 -1 -1 .0 PE 91 MA ti RO 00 0- 0- 00 RS 59 RE ve ZI 40 20 20 N L 40 10 10 FA JA 50 1 AR NE [address] TA UG BL ET 59 08 08 2 1. 90 SO 34 TA Ac 76 -0 -0 00 PE 90 MA ti 24 9- 9- 0 RS 26 RE ve 53 20 20 N 80 10 10 FA JA 1 AR NE LY T DR UG 00 07 07 2 30 30 SO 34 TA Ac 00 -2 -2 .0 PE 78 MA ti 60 6- 6- 00 RS 78 RE ve 11 20 20 N 73 10 10 FA JA 1 AR NE LY T DR UG 00 07 07 2 60 30 SO 34 TA Ac AN 37 -2 -2 .0 PE 78 MA ti FA 81 6- 6- 00 RS 79 RE ve CI 16 20 20 N NE 00 10 10 FA JA 1 1 AR NE LY T MG DR TA UG BL ET CI 13 07 07 2 30 30 SO 34 TA Ac TA 66 -2 -2 .0 PE 78 MA ti LO 80 6- 6- 00 RS 80 RE ve MN 01 20 20 N AM 10 10 10 FA JA 5 AR NE HB LY T R 40 DR UG MG TA BL ET 00 07 07 2 30 30 SO 34 TA Ac 06 -2 -2 .0 PE 78 MA ti 76 6- 6- 00 RS 81 RE ve 07 20 20 N 03 10 10 FA JA 0 AR NE LY T DR UG MN 37 07 07 2 28 28 SO 34 TA Ac IL 00 -2 -2 .0 PE 78 MA ti OS 00 6- 6- 00 RS 82 RE ve EC 45 20 20 N 50 10 10 FA JA OT 4 AR NE C LY T [address] UG MG TA BL ET CO 50 07 07 0 30 30 SO 34 TA Ac NC 45 -2 -2 .0 PE 79 MA ti ER 80 6- 6- 00 RS 02 RE ve TA 58 20 20 N 70 10 10 FA JA ER 1 AR NE LY T 54 DR MG UG TA BL ET 64 05 07 1 60 30 SO 34 TA Ac 98 -2 -0 .0 PE 37 MA ti 00 6- 1- 00 RS 31 RE ve 12 20 20 N 30 10 10 FA JA 1 AR NE LY T DR UG AN 24 12 06 1 23 3 SO 33 TA Ac TI 38 -2 -2 .6 PE 17 MA ti -D 50 8- 9- 00 RS 72 RE ve IA 55 20 20 N RR 45 09 10 FA JA HE 3 AR NE AL LY T 2 DR MG UG CA PL ET MN 68 06 06 0 20 7 SO 34 TA Ac OM 38 -1 -1 .0 PE 47 MA ti ET 20 0- 0- 00 RS 90 RE ve MANUEL 04 20 20 N ZI 11 10 10 FA JA NE 0 AR NE LY T 25 DR MG UG TA BL ET CO 50 06 06 0 30 30 SO 34 TA Ac NC 45 -1 -1 .0 PE 47 MA ti ER 80 0- 0- 00 RS 89 RE ve TA 58 20 20 N 70 10 10 FA JA ER 1 AR NE LY T 54 DR MG UG TA BL ET MN 37 06 06 2 28 28 SO 34 TA Ac IL 00 -1 -1 .0 PE 47 MA ti OS 00 0- 0- 00 RS 87 RE ve EC 45 20 20 N 50 10 10 FA JA OT 4 AR NE C LY T [address] UG MG TA BL ET CI 13 05 06 2 30 30 SO 34 TA Ac TA 66 -0 -0 .0 PE 21 MA ti LO 80 5- 7- 00 RS 14 RE ve MN 01 20 20 N AM 10 10 10 FA JA 5 AR NE HB LY T R 40 DR UG MG TA BL ET 64 05 05 1 60 30 SO 34 TA Ac 98 -2 -2 .0 PE 37 MA ti 00 6- 6- 00 RS 31 RE ve 12 20 20 N 30 10 10 FA JA 1 AR NE LY T DR UG 00 03 05 2 30 30 SO 33 TA Ac 00 -0 -2 .0 PE 71 MA ti 60 8- 4- 00 RS 74 RE ve 11 20 20 N 73 10 10 FA JA 1 AR NE LY T DR UG 00 03 05 2 60 30 SO 33 TA Ac AN 37 -0 -2 .0 PE 71 MA ti FA 81 8- 4- 00 RS 77 RE ve CI 16 20 20 N NE 00 10 10 FA JA 1 1 AR NE LY T MG DR TA UG BL ET 59 05 05 0 1. 90 SO 34 TA Ac 76 -2 -2 00 PE 36 MA ti 24 4- 4- 0 RS 01 RE ve 53 20 20 N 80 10 10 FA JA 1 AR NE LY T DR UG RA 53 12 05 2 60 30 SO 32 TA Ac NI 74 -0 -1 .0 PE 95 MA ti TI 60 1- 4- 00 RS 19 RE ve DI 25 20 20 N NE 30 09 10 FA JA 5 AR NE 15 LY T [address] UG TA BL ET 64 05 05 0 15 10 SO 34 TA Ac 45 -0 -0 .0 PE 21 MA ti 50 5- 5- 00 RS 11 RE ve 99 20 20 N 39 10 10 FA JA 4 AR NE LY T DR UG BYRD 00 05 05 0 10 5 SO 34 TA Ac LF 60 -0 -0 .0 PE 21 MA ti AM 35 5- 5- 00 RS 12 RE ve ET 78 20 20 N HO 12 10 10 FA JA XA 8 AR NE ZO LY T LE -T DR MP UG DS TA BL ET CO 50 05 05 0 30 30 SO 34 TA Ac NC 45 -0 -0 .0 PE 21 MA ti ER 80 5- 5- 00 RS 13 RE ve TA 58 20 20 N 70 10 10 FA JA ER 1 AR NE LY T 54 DR MG UG TA BL ET CI 13 05 05 2 30 30 SO 34 TA Ac TA 66 -0 -0 .0 PE 21 MA ti LO 80 5- 5- 00 RS 14 RE ve MN 01 20 20 N AM 10 10 10 FA JA 5 AR NE HB LY T R 40 DR UG MG TA BL ET 00 03 04 2 30 30 SO 33 TA Ac 00 -0 -2 .0 PE 71 MA ti 60 8- 2- 00 RS 74 RE ve 11 20 20 N 73 10 10 FA JA 1 AR NE LY T DR UG 00 03 04 2 60 30 SO 33 TA Ac AN 37 -0 -2 .0 PE 71 MA ti FA 81 8- 2- 00 RS 77 RE ve CI 16 20 20 N NE 00 10 10 FA JA 1 1 AR NE LY T MG DR TA UG BL ET 00 04 04 1 30 30 SO 34 TA Ac 06 -1 -1 .0 PE 01 MA ti 76 2- 2- 00 RS 13 RE ve 07 20 20 N 03 10 10 FA JA 0 AR NE LY T DR UG CI 13 04 04 0 15 30 SO 34 TA Ac TA 66 -1 -1 .0 PE 01 MA ti LO 80 2- 2- 00 RS 14 RE ve MN 01 20 20 N AM 00 10 10 FA JA 5 AR NE HB LY T R 20 DR UG MG TA BL ET CO 50 04 04 0 60 30 SO 34 TA Ac NC 45 -1 -1 .0 PE 01 MA ti ER 80 2- 2- 00 RS 16 RE ve TA 58 20 20 N 60 10 10 FA JA ER 1 AR NE LY T 36 DR MG UG TA BL ET 60 03 03 0 [address] Ac 25 -2 -2 0. PE 89 ON ti 80 6- 6- 00 RS 36 E ve 23 20 20 0 DI 91 10 10 FA XI 6 AR E LY D DR UG MN 10 03 03 0 [address] Ac OM 70 -2 -2 .0 PE 89 ON ti ET 20 6- 6- 00 RS 35 E ve MANUEL 00 20 20 DI ZI 31 10 10 FA XI NE 0 AR E LY D 25 DR MG UG TA BL ET MN 37 12 03 2 28 28 SO 33 TA Ac IL 00 -2 -2 .0 PE 17 MA ti OS 00 8- 2- 00 RS 69 RE ve EC 45 20 20 N 50 09 10 FA JA OT 4 AR NE C LY T [address] UG MG TA BL ET 00 03 03 2 30 30 SO 33 TA Ac 00 -0 -2 .0 PE 71 MA ti 60 8- 2- 00 RS 74 RE ve 11 20 20 N 73 10 10 FA JA 1 AR NE LY T DR UG 00 03 03 2 60 30 SO 33 TA Ac AN 37 -0 -2 .0 PE 71 MA ti FA 81 8- 2- 00 RS 77 RE ve CI 16 20 20 N NE 00 10 10 FA JA 1 1 AR NE LY T MG DR TA UG BL ET CI 13 03 03 2 15 30 SO 33 TA Ac TA 66 -0 -2 .0 PE 71 MA ti LO 80 8- 2- 00 RS 78 RE ve MN 01 20 20 N AM 10 10 10 FA JA 5 AR NE HB LY T R 40 DR UG MG TA BL ET CO 50 03 03 0 60 30 SO 33 TA Ac NC 45 -0 -0 .0 PE 71 MA ti ER 80 8- 8- 00 RS 75 RE ve TA 58 20 20 N 60 10 10 FA JA ER 1 AR NE LY T 36 DR MG UG TA BL ET RA 53 03 03 2 60 30 SO 33 TA Ac NI 74 -0 -0 .0 PE 71 MA ti TI 60 8- 8- 00 RS 76 RE ve DI 25 20 20 N NE 30 10 10 FA JA 5 AR NE 15 LY T [address] UG TA BL ET CO 50 02 02 00 60 30 SO 33 TA Ac NC 45 -0 -1 .0 PE 48 MA ti ER 80 4- 1- 00 RS 05 RE ve TA 58 20 20 N 60 10 10 FA JA ER 1 AR NE LY T 36 DR MG UG TA BL ET 00 12 01 01 60 30 SO 32 TA Ac AN 37 -0 -2 .0 PE 95 MA ti FA 81 1- 8- 00 RS 17 RE ve CI 16 20 20 N NE 00 09 10 FA JA 1 1 AR NE LY T MG DR TA UG BL ET CI 65 12 01 01 15 30 SO 32 TA Ac TA 86 -0 -2 .0 PE 95 MA ti LO 20 1- 8- 00 RS 16 RE ve MN 00 20 20 N AM 70 09 10 FA JA 1 AR NE HB LY T R 40 DR UG MG TA BL ET 00 12 01 01 30 30 SO 32 TA Ac 00 -0 -2 .0 PE 95 MA ti 60 1- 8- 00 RS 20 RE ve 11 20 20 N 73 09 10 FA JA 1 AR NE LY T DR UG CO 50 01 00 60 30 SO 33 TA Ac NC 45 -0 -1 .0 PE 23 MA ti ER 80 5- 4- 00 RS 57 RE ve TA 58 20 20 N 60 10 10 FA JA ER 1 AR NE LY T 36 DR MG UG TA BL ET MN 37 12 01 00 28 28 SO 33 TA Ac IL 00 -2 -1 .0 PE 17 MA ti OS 00 8- 4- 00 RS 69 RE ve EC 45 20 20 N 50 09 10 FA JA OT 4 AR NE C LY T [address] UG MG TA BL ET AZ 64 12 01 00 6. 5 SO 33 TA Ac IT 67 -2 -1 00 PE 17 MA ti HR 90 8- 4- 0 RS 71 RE ve OM 96 20 20 N YC 10 09 10 FA JA IN 5 AR NE LY T [address] MG UG TA BL ET AN 24 12 00 24 3 SO 33 TA Ac TI 38 -2 -1 .3 PE 17 MA ti -D 50 8- 4- 99 RS 72 RE ve IA 55 20 20 N RR 45 09 10 FA JA HE 3 AR NE AL LY T 2 DR MG UG CA PL ET 66 12 00 11 12 SO 33 TA Ac 99 -2 -1 8. PE 17 MA ti 20 8- 4- 00 RS 70 RE ve 22 20 20 0 N 00 09 10 FA JA 4 AR NE LY T DR UG CI 65 12 12 00 15 30 SO 32 TA Ac TA 86 -0 -3 .0 PE 95 MA ti LO 20 1- 1- 00 RS 16 RE ve MN 00 20 20 N AM 70 09 09 FA JA 1 AR NE HB LY T R 40 DR UG MG TA BL ET 00 12 12 00 30 30 SO 32 TA Ac 00 -0 -3 .0 PE 95 MA ti 60 1- 1- 00 RS 20 RE ve 11 20 20 N 73 09 09 FA JA 1 AR NE LY T DR UG 00 12 12 00 60 30 SO 32 TA Ac AN 37 -0 -3 .0 PE 95 MA ti FA 81 1- 1- 00 RS 17 RE ve CI 16 20 20 N NE 00 09 09 FA JA 1 1 AR NE LY T MG DR TA UG BL ET CO 50 12 12 00 60 30 SO 32 TA Ac NC 45 -0 -1 .0 PE 95 MA ti ER 80 1- 7- 00 RS 21 RE ve TA 58 20 20 N 60 09 09 FA JA ER 1 AR NE LY T 36 DR MG UG TA BL ET RA 53 12 12 00 60 30 SO 32 TA Ac NI 74 -0 -1 .0 PE 95 MA ti TI 60 1- 7- 00 RS 19 RE ve DI 25 20 20 N NE 30 09 09 FA JA 5 AR NE 15 LY T [address] UG TA BL ET CI 65 07 12 02 15 30 SO 31 TA Ac TA 86 -2 -0 .0 PE 88 MA ti LO 20 9- 3- 00 RS 14 RE ve MN 00 20 20 N AM 70 09 09 FA JA 1 AR NE HB LY T R 40 DR UG MG TA BL ET 00 07 12 02 30 30 SO 31 TA Ac 00 -2 -0 .0 PE 88 MA ti 60 9- 3- 00 RS 12 RE ve 11 20 20 N 73 09 09 FA JA 1 AR NE LY T DR UG 00 07 12 02 60 30 SO 31 TA Ac AN 37 -2 -0 .0 PE 88 MA ti FA 81 9- 3- 00 RS 13 RE ve CI 16 20 20 N NE 00 09 09 FA JA 1 1 AR NE LY T MG DR TA UG BL ET MN 68 07 11 02 40 10 SO 31 TA Ac OM 38 -2 -0 .0 PE 88 MA ti ET 20 9- 5- 00 RS 16 RE ve MANUEL 04 20 20 N ZI 11 09 09 FA JA NE 0 AR NE LY T 25 DR MG UG TA BL ET CO 50 10 11 00 60 30 SO 32 TA Ac NC 45 -2 -0 .0 PE 67 MA ti ER 80 9- 5- 00 RS 19 RE ve TA 58 20 20 N 60 09 09 FA JA ER 1 AR NE LY T 36 DR MG UG TA BL ET SF 60 10 11 00 56 20 SO 32 DU Ac 25 -2 -0 .0 PE 57 RB ti 1. 80 0- 5- 00 RS 77 IN ve 1% 15 20 20 10 09 09 FA DO GE 1 AR UG L LY LA S DR D UG ME 00 10 11 00 1. 90 SO [address] 70 -2 -0 00 PE 67 MA ti OX 36 9- 5- 0 RS 18 RE ve YP 80 20 20 N RO 10 09 09 FA JA GE [address] LY T ER ON DR E UG 15 0 MG /M L 53 10 10 00 12 12 SO 32 TA Ac 01 -0 -2 0. PE 43 MA ti 40 5- 2- 00 RS 51 RE ve 54 20 20 0 N 86 09 09 FA JA 7 AR NE LY T DR UG CI 65 07 10 01 15 30 SO 31 TA Ac TA 86 -2 -2 .0 PE 88 MA ti LO 20 9- 2- 00 RS 14 RE ve MN 00 20 20 N AM 70 09 09 FA JA 1 AR NE HB LY T R 40 DR UG MG TA BL ET 00 07 10 01 60 30 SO 31 TA Ac AN 37 -2 -2 .0 PE 88 MA ti FA 81 9- 2- 00 RS 13 RE ve CI 16 20 20 N NE 00 09 09 FA JA 1 1 AR NE LY T MG DR TA UG BL ET 00 07 10 01 30 30 SO 31 TA Ac 00 -2 -2 .0 PE 88 MA ti 60 9- 2- 00 RS 12 RE ve 11 20 20 N 73 09 09 FA JA 1 AR NE LY T DR UG 49 10 [...] IN 20 09 09 FA la 2 AR bl 50 LY e [address] UG CA PS UL E MN 50 10 10 00 24 12 SO 32 TA Ac OM 38 -0 -0 0. PE 42 MA ti ET 30 2 8- 00 RS 65 RE ve MANUEL 80 20 20 0 N ZI 41 09 09 FA JA NE 6 AR NE -C LY T OD EI DR NE UG SY RU P 00 09 10 00 [address] Ac 11 -2 -0 .0 PE 39 ON ti 51 9- 8- 00 RS 37 E ve 04 20 20 DI 10 09 09 FA XI 3 AR E LY D DR UG CO 50 09 10 00 [address] Ac NC 45 -2 -0 .0 PE 39 ON ti ER 80 9- 8- 00 RS 38 E ve TA 58 20 20 DI 60 09 09 FA XI ER 1 AR E LY D 36 DR MG UG TA BL ET 00 10 10 00 21 6 SO 32 TA Ac 55 -0 -0 .0 PE 42 MA ti 50 2- 8- 00 RS 63 RE ve 30 20 20 N 13 09 09 FA JA 8 AR NE LY T DR UG RA 53 07 10 02 60 30 SO 31 TA Ac NI 74 -2 -0 .0 PE 88 MA ti TI 60 9- 8- 00 RS 15 RE ve DI 25 20 20 N NE 30 09 09 FA JA 5 AR NE 15 LY T [address] UG TA BL ET 00 10 10 00 30 10 SO 32 TA Ac 78 -0 -0 .0 PE 42 MA ti 12 2- 8- 00 RS 64 RE ve 11 20 20 N 20 09 09 FA JA 1 AR NE LY T DR UG 50 09 09 00 30 10 SO 32 TA Ac 11 -1 -2 .0 PE 26 MA ti 10 4- 4- 00 RS 50 RE ve 85 20 20 N 10 09 09 FA JA 1 AR NE LY T DR UG AZ 64 09 09 00 6. 5 SO 32 TA Ac IT 67 -1 -2 00 PE 26 MA ti HR 90 4- 4- 0 RS 48 RE ve OM 96 20 20 N YC 10 09 09 FA JA IN 5 AR NE LY T [address] MG UG TA BL ET 60 09 09 00 24 12 SO 32 TA Ac 25 -1 -2 0. PE 26 MA ti 80 4- 4- 00 RS 49 RE ve 23 20 20 0 N 91 09 09 FA JA 6 AR NE LY T DR UG CI 60 07 09 00 15 30 SO 31 TA Ac TA 50 -2 -1 .0 PE 88 MA ti LO 52 9- 0- 00 RS 14 RE ve MN 52 20 20 N AM 00 09 09 FA JA 1 AR NE HB LY T R 40 DR UG MG TA BL ET 00 07 09 01 40 10 SO 31 TA Ac 11 -2 -1 .0 PE 88 MA ti 51 9- 0- 00 RS 16 RE ve 04 20 20 N 10 09 09 FA JA 3 AR NE LY T DR UG 00 07 09 00 30 30 SO 31 TA Ac 00 -2 -1 .0 PE 88 MA ti 60 9- 0- 00 RS 12 RE ve 11 20 20 N 73 09 09 FA JA 1 AR NE LY T DR UG 00 07 09 00 60 30 SO 31 TA Ac AN 37 -2 -1 .0 PE 88 MA ti FA 81 9- 0- 00 RS 13 RE ve CI 16 20 20 N NE 00 09 09 FA JA 1 1 AR NE LY T MG DR TA UG BL ET 60 07 09 01 60 30 SO 31 TA Ac 50 -2 -1 .0 PE 88 MA ti 50 9- 0- 00 RS 15 RE ve 02 20 20 N 50 09 09 FA JA 8 AR NE LY T DR UG CO 50 08 09 00 60 30 SO 32 TA Ac NC 45 -2 -1 .0 PE 12 MA ti ER 80 8- 0- 00 RS 65 RE ve TA 58 20 20 N 60 09 09 FA JA ER 1 AR NE LY T 36 DR MG UG TA BL ET 00 05 08 02 60 30 SO 31 TA Ac AN 37 -2 -1 .0 PE 44 MA ti FA 81 7- 3- 00 RS 79 RE ve CI 16 20 20 N NE 00 09 09 FA JA 1 1 AR NE LY T MG DR TA UG BL ET 60 07 08 00 60 30 SO 31 TA Ac 50 -2 -1 .0 PE 88 MA ti 50 9- 3- 00 RS 15 RE ve 02 20 20 N 50 09 09 FA JA 8 AR NE LY T DR UG CI 60 05 08 01 15 30 SO 31 TA Ac TA 50 -2 -1 .0 PE 44 MA ti LO 52 7- 3- 00 RS 78 RE ve MN 52 20 20 N AM 00 09 09 FA JA 1 AR NE HB LY T R 40 DR UG MG TA BL ET MN 68 07 08 00 40 10 SO 31 TA Ac OM 38 -2 -1 .0 PE 88 MA ti ET 20 9- 3- 00 RS 16 RE ve MANUEL 04 20 20 N ZI 11 09 09 FA JA NE 0 AR NE LY T 25 DR MG UG TA BL ET CO 50 07 08 00 60 30 SO 31 TA Ac NC 45 -2 -1 .0 PE 88 MA ti ER 80 9- 3- 00 RS 17 RE ve TA 58 20 20 N 60 09 09 FA JA ER 1 AR NE LY T 36 DR MG UG TA BL ET 00 07 07 00 30 30 SO 31 TA Ac 00 -1 -3 .0 PE 79 MA ti 60 5- 0- 00 RS 72 RE ve 11 20 20 N 73 09 09 FA JA 1 AR NE LY T DR UG 00 06 07 00 40 14 SO 31 TA Ac 40 -2 -1 .0 PE 68 MA ti 62 9- 6- 00 RS 43 RE ve 04 20 20 N 11 09 09 FA JA 0 AR NE LY T DR UG CO 50 06 07 00 60 30 SO 31 TA Ac NC 45 -2 -1 .0 PE 68 MA ti ER 80 9- 6- 00 RS 42 RE ve TA 58 20 20 N 60 09 09 FA JA ER 1 AR NE LY T 36 DR MG UG TA BL ET 00 05 07 01 60 30 SO 31 TA Ac AN 37 -2 -1 .0 PE 44 MA ti FA 81 7- 6- 00 RS 79 RE ve CI 16 20 20 N NE 00 09 09 FA JA 1 1 AR NE LY T MG DR TA UG BL ET 00 07 07 00 20 10 SO 31 TA Ac 17 -0 -1 .0 PE 71 MA ti 22 6- 6- 00 RS 75 RE ve 98 20 20 N 57 09 09 FA JA 0 AR NE LY T DR UG IB 24 01 07 02 10 13 SO 30 TA Ac UP 38 -2 -1 0. PE 39 MA ti RO 50 1- 6- 00 RS 28 RE ve FE 60 20 20 0 N N 48 09 09 FA JA 20 5 AR NE [address] TA UG BL ET RA 53 04 07 02 60 30 SO 31 TA Ac NI 74 -2 -1 .0 PE 18 MA ti TI 60 2- 6- 00 RS 09 RE ve DI 25 20 20 N NE 30 09 09 FA JA 5 AR NE 15 LY T [address] UG TA BL ET CI 60 05 06 00 30 30 SO 31 TA Ac TA 50 -2 -0 .0 PE 44 MA ti LO 52 7- 4- 00 RS 78 RE ve MN 52 20 20 N AM 00 09 09 FA JA 1 AR NE HB LY T R 40 DR UG MG TA BL ET 00 03 06 02 30 30 SO 30 TA Ac 00 -1 -0 .0 PE 81 MA ti 60 1- 4- 00 RS 10 RE ve 11 20 20 N 73 09 09 FA JA 1 AR NE LY T DR UG RA 53 04 06 01 60 30 SO 31 TA Ac NI 74 -2 -0 .0 PE 18 MA ti TI 60 2- 4- 00 RS 09 RE ve DI 25 20 20 N NE 30 09 09 FA JA 5 AR NE 15 LY T [address] UG TA BL ET 00 07 25 00 60 30 SO 31 TA Ac AN 37 -2 -0 .0 PE 44 MA ti FA 81 7- 4- 00 RS 79 RE ve CI 16 20 20 N NE 00 09 09 FA JA 1 1 AR NE LY T MG DR TA UG BL ET CO 50 05 06 00 60 30 SO 31 TA Ac NC 45 -2 -0 .0 PE 44 MA ti ER 80 7- 4- 00 RS 76 RE ve TA 58 20 20 N 60 09 09 FA JA ER 1 AR NE LY T 36 DR MG UG TA BL ET CE 00 05 06 00 14 7 SO 31 TA Ac PH 14 -2 -0 .0 PE 44 MA ti AL 39 7- 4- 00 RS 77 RE ve EX 89 20 20 N IN 70 09 09 FA JA 5 AR NE 50 LY [address] UG CA PS UL E IB 24 01 05 01 10 13 SO 30 TA Ac UP 38 -2 -2 0. PE 39 MA ti RO 50 1- 1- 00 RS 28 RE ve FE 60 20 20 0 N N 48 09 09 FA JA 20 5 AR NE [address] TA UG BL ET CO 50 04 05 00 60 30 SO 31 TA Ac NC 45 -2 -0 .0 PE 18 MA ti ER 80 2 7- RS 10 RE ve TA 58 20 20 N 60 09 09 FA JA ER 1 AR NE LY T 36 DR MG UG TA BL ET 00 03 05 01 30 30 SO 30 TA Ac 00 -1 -0 .0 PE 81 MA ti 60 1 7 RS 10 RE ve 11 20 20 N 73 09 09 FA JA 1 AR NE LY T DR UG RA 53 04 05 00 60 30 SO 31 TA Ac NI 74 -2 -0 .0 PE 18 MA ti TI 60 2 7- 00 RS 09 RE ve DI 25 20 20 N NE 30 09 09 FA JA 5 AR NE 15 LY T [address] UG TA BL ET CI 60 02 05 02 15 30 SO 30 TA Ac TA 50 -1 -0 .0 PE 61 MA ti LO 52 9 7- RS 27 RE ve MN 52 20 20 N AM 00 09 09 FA JA 1 AR NE HB LY T R 40 DR UG MG TA BL ET 00 02 05 02 60 30 SO 30 TA Ac AN 37 -1 -0 .0 PE 61 MA ti FA 81 9 7- 00 RS 26 RE ve CI 16 20 20 N NE 00 09 09 FA JA 1 1 AR NE LY T MG DR TA UG BL ET CI 60 02 04 01 15 30 SO 30 TA Ac TA 50 -1 -0 .0 PE 61 MA ti LO 52 9- 9- 00 RS 27 RE ve MN 52 20 20 N AM 00 09 09 FA JA 1 AR NE HB LY T R 40 DR UG MG TA BL ET CO 50 03 04 00 60 30 SO 30 TA Ac NC 45 -1 -0 .0 PE 90 MA ti ER 80 1 9 RS 84 RE ve TA 58 20 20 N 60 09 09 FA JA ER 1 AR NE LY T 36 DR MG UG TA BL ET 00 02 04 01 60 30 SO 30 TA Ac AN 37 -1 -0 .0 PE 61 MA ti FA 81 9 9 00 RS 26 RE ve CI 16 20 20 N NE 00 09 09 FA JA 1 1 AR NE LY T MG DR TA UG BL ET TR 45 03 04 00 80 15 SO 30 TA Ac IA 80 -2 -0 .0 PE 96 MA ti MC 20 RS 79 RE ve IN 06 20 20 N OL 43 09 09 FA JA ON 6 AR NE E LY T 0. 1% DR KAT ATKINS EA M 00 03 00 30 30 SO 30 CO Ac 00 -1 -2 .0 PE 81 MM ti 60 RS 10 UN ve 11 20 20 IT 73 09 09 FA Y 1 AR AL LY LE RG DR Mike STEPHENS & TH MA PS C RA 53 12 02 02 60 30 SO 30 TA Ac NI 74 -1 -2 .0 PE 15 MA ti TI 60 9 6 RS 72 RE ve DI 25 20 20 N NE 30 08 09 FA JA 5 AR NE 15 LY T [address] UG TA BL ET 00 02 02 00 60 30 SO 30 TA Ac AN 37 -1 -2 .0 PE 61 MA ti FA 81 9 6- 00 RS 26 RE ve CI 16 20 20 N NE 00 09 09 FA JA 1 1 AR NE LY T MG DR TA UG BL ET CI 60 02 02 00 15 30 SO 30 TA Ac TA 50 -1 -2 .0 PE 61 MA ti LO 52 9 6- RS 27 RE ve MN 52 20 20 N AM 00 09 09 FA JA 1 AR NE HB LY T R 40 DR UG MG TA BL ET CO 50 02 02 00 60 30 SO 30 TA Ac NC 45 -1 -2 .0 PE 58 MA ti ER 80 6- 6- 00 RS 64 RE ve TA 58 20 20 N 60 09 09 FA JA ER 1 AR NE LY T 36 DR MG UG TA BL ET SF 60 02 02 00 51 20 SO 30 ME Ac 25 -1 -2 .0 PE 53 AD ti 50 80 0- 6- 00 RS 58 E ve 00 15 20 20 DM 00 [address] 1 AR JE US LY WE LL CR DR EA UG M 64 12 01 01 60 30 SO 30 TA Ac 67 -1 -3 .0 PE 15 MA ti 90 9- 0- 00 RS 72 RE ve 90 20 20 N 60 08 09 FA JA 3 AR NE LY T DR UG IB 24 01 01 00 10 13 SO 30 TA Ac UP 38 -2 -3 0. PE 39 MA ti RO 50 1- 0- 00 RS 28 RE ve FE 60 20 20 0 N N 48 09 09 FA JA 20 5 AR NE [address] TA UG BL ET CO 50 01 01 00 60 30 SO 30 TA Ac NC 45 -2 -3 .0 PE 39 MA ti ER 80 1- 0- 00 RS 27 RE ve TA 58 20 20 N 60 09 09 FA JA ER 1 AR NE LY T 36 DR MG UG TA BL ET CI 60 11 01 02 15 30 SO 29 TA Ac TA 50 -2 -3 .0 PE 89 MA ti LO 52 0- 0- 00 RS 29 RE ve MN 52 20 20 N AM 00 08 09 FA JA 1 AR NE HB LY T R 40 DR UG MG TA BL ET 00 11 02 60 30 SO 29 TA Ac AN 37 -2 -3 .0 PE 89 MA ti FA 81 0- 0- 00 RS 30 RE ve CI 16 20 20 N NE 00 08 09 FA JA 1 1 AR NE LY T MG DR TA UG BL ET 64 12 01 00 60 30 SO 30 TA Ac 67 -1 -0 .0 PE 15 MA ti 90 9- 1- 00 RS 72 RE ve 90 20 20 N 60 08 09 FA JA 3 AR NE LY T DR UG CI 60 11 01 01 15 30 SO 29 TA Ac TA 50 -2 -0 .0 PE 89 MA ti LO 52 0- 1- 00 RS 29 RE ve MN 52 20 20 N AM 00 08 09 FA JA 1 AR NE HB LY T R 40 DR UG MG TA BL ET 17 12 01 00 60 30 SO 30 TA Ac 31 -1 -0 .0 PE 15 MA ti 45 9- 1- 00 RS 73 RE ve 85 20 20 N 10 08 09 FA JA 2 AR NE LY T DR UG 00 11 01 01 60 30 SO 29 TA Ac AN 37 -2 -0 .0 PE 89 MA ti FA 81 0- 1- 00 RS 30 RE ve CI 16 20 20 N NE 00 08 09 FA JA 1 1 AR NE LY T MG DR TA UG BL ET CL 00 11 12 00 20 10 SO 29 TA Ac AR 78 -2 -0 .0 PE 89 MA ti IT 11 0- 4- 00 RS 33 RE ve HR 96 20 20 N OM 16 08 08 FA JA YC 0 AR NE IN LY T 25 DR 0 UG MG TA BL ET 00 11 12 00 21 6 SO 29 TA Ac 55 -2 -0 .0 PE 89 MA ti 50 0- 4- 00 RS 34 RE ve 30 20 20 N 13 08 08 FA JA 8 AR NE LY T DR UG 00 11 12 00 60 30 SO 29 TA Ac AN 37 -2 -0 .0 PE 89 MA ti FA 81 0- 4- 00 RS 30 RE ve CI 16 20 20 N NE 00 08 08 FA JA 1 1 AR NE LY T MG DR TA UG BL ET 63 11 12 00 20 10 SO 29 TA Ac 82 -2 -0 .0 PE 89 MA ti 40 0- 4- 00 RS 57 RE ve 00 20 20 N 81 08 08 FA JA 0 AR NE LY T DR UG MN 50 11 12 00 18 9 SO 29 TA Ac OM 38 -2 -0 0. PE 89 MA ti ET 30 0- 4- 00 RS 32 RE ve MANUEL 80 20 20 0 N ZI 41 08 08 FA JA NE 6 AR NE -C LY T OD EI DR NE UG SY RU P LO 51 03 12 06 30 30 SO 27 CO Ac RA 66 -1 -0 .0 PE 84 MM ti TA 00 0- 4- 00 RS 96 UN ve DI 52 20 20 IT NE 60 08 08 FA Y 5 AR AL 10 L[address] RG [address] Y UG & TA BL TH ET MA PS C CI 60 11 12 00 15 30 SO 29 TA Ac TA 50 -2 -0 .0 PE 89 MA ti LO 52 0- 4- 00 RS 29 RE ve MN 52 20 20 N AM 00 08 08 FA JA 1 AR NE HB LY T R 40 DR UG MG TA BL ET 00 03 12 06 30 30 SO 27 CO Ac 00 -1 -0 .0 PE 84 MM ti 60 0- 4- 00 RS 99 UN ve 11 20 20 IT 73 08 08 FA Y 1 AR AL LY LE RG DR Y UG & TH MA PS C IB 24 11 12 00 60 15 SO 29 TA Ac UP 38 -2 -0 .0 PE 94 MA ti RO 50 6- 4- 00 RS 31 RE ve FE 60 20 20 N N 48 08 08 FA JA 20 5 AR NE [address] TA UG BL ET 17 11 12 00 60 30 SO 29 TA Ac 31 -2 -0 .0 PE 89 MA ti 45 0- 4- 00 RS 31 RE ve 85 20 20 N 10 08 08 FA JA 2 AR NE LY T DR UG 17 10 11 00 60 30 SO 29 TA Ac 31 -2 -0 .0 PE 60 MA ti 45 0- 7- 00 RS 22 RE ve 85 20 20 N 10 08 08 FA JA 2 AR NE LY T DR UG 00 10 11 00 21 6 SO 29 TA Ac 55 -2 -0 .0 PE 60 MA ti 50 0- 7- 00 RS 20 RE ve 30 20 20 N 13 08 08 FA JA 8 AR NE LY T DR UG 59 10 11 00 30 15 SO 29 TA Ac 70 -2 -0 .0 PE 60 MA ti 20 0- 7- 00 RS 21 RE ve 81 20 20 N 90 08 08 FA JA 1 AR NE LY T DR UG 00 03 10 05 30 30 SO 27 CO Ac 00 -1 -2 .0 PE 84 MM ti 60 0- 3- 00 RS 99 UN ve 11 20 20 IT 73 08 08 FA Y 1 AR AL LY LE RG DR Y UG & TH MA PS C LO 60 03 10 05 30 30 SO 27 CO Ac RA 50 -1 -2 .0 PE 84 MM ti TA 50 0- 3- 00 RS 96 UN ve DI 14 20 20 IT NE 70 08 08 FA Y 8 AR AL 10 LY LE RG MG [address] [...] 00 08 08 FA la 1 1 AR bl LY e MG DR TA UG BL ET CI 60 10 10 00 15 30 SO 29 TA Ac TA 50 -0 -0 .0 PE 47 MA ti LO 52 2- 9- 00 RS 05 RE ve MN 52 20 20 N AM 00 08 08 FA JA 1 AR NE HB LY T R 40 DR UG MG TA BL ET 00 08 09 01 60 30 SO 29 No Ac AN 37 -0 -2 .0 PE 03 t ti FA 81 8- 6- 00 RS 21 Av ve CI 16 20 20 ai NE 00 08 08 FA la 1 1 AR bl LY e MG DR TA UG BL ET 14 03 09 05 40 20 SO 27 No Ac 62 -2 -2 .0 PE 95 t ti 90 0- 6- 00 RS 08 Av ve 20 20 20 ai 20 08 08 FA la 1 AR bl LY e DR UG LO 60 03 09 04 30 30 SO 27 No Ac RA 50 -1 -2 .0 PE 84 t ti TA 50 0- 6- 00 RS 96 Av ve DI 14 20 20 ai NE 70 08 08 FA la 8 AR bl [address] UG TA BL ET 00 03 09 04 30 30 SO 27 No Ac 00 -1 -2 .0 PE 84 t ti 60 0- 6- 00 RS 99 Av ve 11 20 20 ai 73 08 08 FA la 1 AR bl LY e DR UG 17 09 09 00 60 30 SO 29 No Ac 31 -1 -2 .0 PE 37 t ti 45 8- 6- 00 RS 07 Av ve 85 20 20 ai 10 08 08 FA la 2 AR bl LY e DR UG OX 50 08 08 00 12 4 SO 29 No Ac YB 11 -1 -2 .0 PE 08 t ti UT 10 4- 8- 00 RS 27 Av ve YN 45 20 20 ai IN 60 08 08 FA la 5 1 AR bl LY e MG DR TA UG BL ET 17 08 08 00 60 30 SO 29 No Ac 31 -1 -2 .0 PE 08 t ti 45 4- 8- 00 RS 30 Av ve 85 20 20 ai 10 08 08 FA la 2 AR bl LY e DR UG 00 03 08 03 30 30 SO 27 No Ac 00 -1 -2 .0 PE 84 t ti 60 0- 8- 00 RS 99 Av ve 11 20 20 ai 73 08 08 FA la 1 AR bl LY e DR UG 14 03 08 04 40 20 SO 27 No Ac 62 -2 -2 .0 PE 95 t ti 90 0- 8- 00 RS 08 Av ve 20 20 20 ai 20 08 08 FA la 1 AR bl LY e DR UG BYRD 53 08 08 00 14 7 SO 29 No Ac LF 48 -1 -2 .0 PE 08 t ti AM 90 4- 8- 00 RS 29 Av ve ET 14 20 20 ai HO 50 08 08 FA la XA 1 AR bl ZO LY e LE -T DR MP UG SS TA BL ET LO 24 03 08 03 30 30 SO 27 No Ac RA 38 -1 -2 .0 PE 84 t ti TA 50 0- 8- 00 RS 96 Av ve DI 47 20 20 ai NE 17 08 08 FA la 8 AR bl [address] UG TA BL ET 00 08 08 00 60 30 SO 29 No Ac AN 37 -0 -1 .0 PE 03 t ti FA 81 8- 4- 00 RS 21 Av ve CI 16 20 20 ai NE 00 08 08 FA la 1 1 AR bl LY e MG DR TA UG BL ET PE 67 08 08 00 30 7 SO 29 No Ac NI 25 -0 -1 .0 PE 01 t ti CI 30 5- 4- 00 RS 02 Av ve LL 20 20 20 ai IN 01 08 08 FA la 0 AR bl VK LY e 25 DR 0 UG MG TA BL ET 17 07 08 00 60 30 SO 28 No Ac 31 -1 -0 .0 PE 89 t ti 45 8- 1- 00 RS 19 Av ve 85 20 20 ai 10 08 08 FA la 2 AR bl LY e DR UG 00 03 08 02 30 30 SO 27 No Ac 00 -1 -0 .0 PE 84 t ti 60 0- 1- 00 RS 99 Av ve 11 20 20 ai 73 08 08 FA la 1 AR bl LY e DR UG LO 24 03 08 02 30 30 SO 27 No Ac RA 38 -1 -0 .0 PE 84 t ti TA 50 0- 1- 00 RS 96 Av ve DI 47 20 20 ai NE 17 08 08 FA la 8 AR bl [address] UG TA BL ET 00 01 07 05 60 30 SO 27 No Ac AN 37 -1 -1 .0 PE 29 t ti FA 81 5- 7- 00 RS 09 Av ve CI 16 20 20 ai NE 00 08 08 FA la 1 1 AR bl LY e MG DR TA UG BL ET 14 03 07 03 40 20 SO 27 No Ac 62 -2 -1 .0 PE 95 t ti 90 0- 7- 00 RS 08 Av ve 20 20 20 ai 20 08 08 FA la 1 AR bl LY e DR UG MN 50 06 07 00 24 14 SO 28 No Ac OM 38 -1 -0 0. PE 61 t ti ET 30 0- 3- 00 RS 51 Av ve MANUEL 80 20 20 0 ai ZI 41 08 08 FA la NE 6 AR bl -C LY e OD EI DR NE UG SY RU P XO 63 06 07 00 15 15 SO 28 No Ac PE 40 -1 -0 .0 PE 61 t ti NE 20 0- 3- 00 RS 53 Av ve X 51 20 20 ai HF 00 08 08 FA la A 1 AR bl [address] Walker STEPHENS IN [place] LE R CL 00 06 07 00 20 10 SO 28 No Ac AR 78 -1 -0 .0 PE 61 t ti IT 11 0- 3- 00 RS 52 Av ve HR 96 20 20 ai OM 16 08 08 FA la YC 0 AR bl IN LY e 25 DR 0 UG MG TA BL ET 00 03 07 01 30 30 SO 27 No Ac 00 -1 -0 .0 PE 84 t ti 60 0- 3- 00 RS 99 Av ve 11 20 20 ai 73 08 08 FA la 1 AR bl LY e DR KAT 17 06 07 00 60 30 SO 28 No Ac 31 -2 -0 .0 PE 68 t ti 45 0- 3- 00 RS 01 Av ve 85 20 20 ai 10 08 08 FA la 2 AR bl LY e DR STEPHENS MN 00 06 07 00 15 5 SO 28 No Ac ED 59 -1 -0 .0 PE 61 t ti NI 15 0- 3- 00 RS 55 Av ve SO 44 20 20 ai NE 20 08 08 FA la 5 AR bl [address] UG TA BL ET LO 24 03 07 01 30 30 SO 27 No Ac RA 38 -1 -0 .0 PE 84 t ti TA 50 0- 3- 00 RS 96 Av ve DI 47 20 20 ai NE 17 08 08 FA la 8 AR bl [address] UG TA BL ET CE 00 06 06 00 28 7 SO 28 No Ac PH 14 -0 -1 .0 PE 55 t ti AL 39 3- 2- 00 RS 85 Av ve EX 89 20 20 ai IN 70 08 08 FA la 5 AR bl 50 LY e [address] UG CA PS UL E 50 06 06 00 15 5 SO 28 No Ac 11 -0 -1 .0 PE 55 t ti 10 3- 2- 00 RS 86 Av ve 85 20 20 ai 10 08 08 FA la 1 AR bl LY e DR UG 14 03 06 02 40 20 SO 27 No Ac 62 -2 -0 .0 PE 95 t ti 90 0- 5- 00 RS 08 Av ve 20 20 20 ai 20 08 08 FA la 1 AR bl LY e UG 49 05 06 00 40 13 SO 28 No Ac 88 -1 -0 .0 PE 44 t ti 40 9- 5- 00 RS 59 Av ve 77 20 20 ai 70 08 08 FA la 5 AR bl LY e DR UG MN 68 05 06 00 30 7 SO 28 No Ac OM 38 -1 -0 .0 PE 44 t ti ET 20 9- 5- 00 RS 60 Av ve MANUEL 04 20 20 ai ZI 00 08 08 FA la NE 1 AR bl LY e [address] UG MG TA BL ET 00 01 06 04 60 30 SO 27 No Ac AN 37 -1 -0 .0 PE 29 t ti FA 81 5- 5- 00 RS 09 Av ve CI 16 20 20 ai NE 00 08 08 FA la 1 1 AR bl LY e MG DR TA UG BL ET LO 24 03 05 00 30 30 SO 27 No Ac RA 38 -1 -2 .0 PE 84 t ti TA 50 0- 2- 00 RS 96 Av ve DI 47 20 20 ai NE 17 08 08 FA la 8 AR bl [address] UG TA BL ET 17 05 05 00 60 30 SO 28 No Ac 31 -1 -2 .0 PE 42 t ti 45 5- 2- 00 RS 50 Av ve 85 20 20 ai 10 08 08 FA la 2 AR bl LY e DR UG 00 03 05 00 30 30 SO 27 No Ac 00 -1 -2 .0 PE 84 t ti 60 0- 2- 00 RS 99 Av ve 11 20 20 ai 73 08 08 FA la 1 AR bl LY e DR UG 14 03 05 01 40 20 SO 27 No Ac 62 -2 -0 .0 PE 95 t ti 90 0- 8- 00 RS 08 Av ve 20 20 20 ai 20 08 08 FA la 1 AR bl LY e DR UG MN 10 05 05 00 20 4 SO 28 No Ac OM 70 -0 -0 .0 PE 30 t ti ET 20 1- 8- 00 RS 55 Av ve MANUEL 00 20 20 ai ZI 31 08 08 FA la NE 0 AR bl LY e 25 DR MG UG TA BL ET MN 00 04 05 00 20 8 SO 28 No Ac ED 59 -2 -0 .0 PE 25 t ti NI 15 4- 8- 00 RS 26 Av ve SO 44 20 20 ai NE 20 08 08 FA la 5 AR bl [address] UG TA BL ET 68 04 05 00 20 10 SO 28 No Ac 77 -2 -0 0. PE 25 t ti 40 4- 8- 00 RS 22 Av ve 30 20 20 0 ai 33 08 08 FA la 5 AR bl LY e DR UG 00 01 05 03 60 30 SO 27 No Ac AN 37 -1 -0 .0 PE 29 t ti FA 81 5- 8- 00 RS 09 Av ve CI 16 20 20 ai NE 00 08 08 FA la 1 1 AR bl LY e MG DR LAY UG BL ET 53 04 05 00 18 30 SO 28 No Ac 01 -2 -0 0. PE 25 t ti 40 4- 8- 00 RS 23 Av ve 54 20 20 0 ai 86 08 08 FA la 7 AR bl LY e DR STEPHENS LI 24 04 04 00 12 1 SO 28 No Ac CE 38 -1 -2 0. PE 15 t ti 50 4- 4- 00 RS 98 Av ve TR 11 20 20 0 ai EA 60 08 08 FA la TM 3 AR bl EN LY e T SH DR AM UG PO O 00 08 04 06 30 30 SO 25 No Ac 00 -1 -2 .0 PE 89 t ti 60 3- 4- 00 RS 16 Av ve 11 20 20 ai 73 07 08 FA la 1 AR bl LY e DR STEPHENS LO 24 08 04 05 30 30 SO 25 No Ac RA 38 -1 -2 .0 PE 89 t ti TA 50 3- 4- 00 RS 18 Av ve DI 47 20 20 ai NE 17 07 08 FA la 8 AR bl [address] UG TA BL ET 17 04 04 00 60 30 SO 28 No Ac 31 -0 -2 .0 PE 11 t ti 45 8- 4- 00 RS 16 Av ve 85 20 20 ai 10 08 08 FA la 2 AR bl LY e DR STEPHENS 00 01 04 02 60 30 SO 27 No Ac AN 37 -1 -1 .0 PE 29 t ti FA 81 5- 7- 00 RS 09 Av ve CI 16 20 20 ai NE 00 08 08 FA la 1 1 AR bl LY e MG DR TA UG BL ET 00 03 04 00 12 30 SO 27 No Ac 17 -1 -1 .0 PE 84 t ti 30 0- 7- 00 RS 95 Av ve 71 20 20 ai 60 08 08 FA la 0 AR bl LY e DR UG NA 00 03 04 00 17 30 SO 27 No Ac SO 08 -1 -1 .0 PE 84 t ti NE 51 0- 7- 00 RS 97 Av ve X 28 20 20 ai 50 80 08 08 FA la 1 AR bl MC LY e G NA SA UG L SP RA Y 14 03 04 00 40 20 SO 27 No Ac 62 -2 -1 .0 PE 95 t ti 90 0- 7- 00 RS 08 Av ve 20 20 20 ai 20 08 08 FA la 1 AR bl LY e DR STEPHENS MN 00 03 04 00 6. 15 SO 27 No Ac OV 08 -1 -1 70 PE 84 t ti EN 51 0- 7- 0 RS 94 Av ve TI 13 20 20 ai L 20 08 08 FA la HF 1 AR bl A LY e 90 DR GABRIEL UG G IN MANUEL LE R 63 03 04 00 20 10 SO 27 No Ac 30 -2 -1 .0 PE 98 t ti 40 4- 0- 00 RS 60 Av ve 75 20 20 ai 16 08 08 FA la 0 AR bl LY e UG 00 08 04 05 30 30 SO 25 No Ac 00 -1 -0 .0 PE 89 t ti 60 3- 7- 00 RS 16 Av ve 11 20 20 ai 73 07 08 FA la 1 AR bl LY e DR KAT LO 24 08 04 04 30 30 SO 25 No Ac RA 38 -1 -0 .0 PE 89 t ti TA 50 3- 7- 00 RS 18 Av ve DI 47 20 20 ai NE 17 07 08 FA la 8 AR bl [address] UG TA BL ET 17 03 04 00 60 30 SO 27 No Ac 31 -0 -0 .0 PE 82 t ti 45 7- 7- 00 RS 48 Av ve 85 20 20 ai 10 08 08 FA la 2 AR bl LY e DR STEPHENS 00 01 03 01 60 30 SO 27 No Ac AN 37 -1 -2 .0 PE 29 t ti FA 81 5- 6- 00 RS 09 Av ve CI 16 20 20 ai NE 00 08 08 FA la 1 1 AR bl LY e MG TA UG BL ET 14 03 03 03 40 20 SO 24 No Ac 62 -2 -2 .0 PE 67 t ti 90 0- 6- 00 RS 13 Av ve 20 20 20 ai 20 07 08 FA la 1 AR bl LY e UG 00 01 03 00 12 4 SO 27 No Ac 60 -3 -2 0. PE 45 t ti 31 1- 6- 00 RS 66 Av ve 31 20 20 0 ai 05 08 08 FA la 8 AR bl LY e UG MN 00 08 03 02 6. 30 SO 25 No Ac OV 08 -1 -2 70 PE 89 t ti EN 51 3- 6- 0 RS 19 Av ve TI 13 20 20 ai L 20 07 08 FA la HF 1 AR bl A LY e 90 DR GABRIEL UG G IN MANUEL LE R 17 02 03 00 60 30 SO 27 No Ac 31 -0 -2 .0 PE 54 t ti 45 8- 6- 00 RS 15 Av ve 85 20 20 ai 10 08 08 FA la 2 AR bl LY e DR UG LE 00 01 03 00 30 30 WA 69 No Ac XA 45 -1 -2 .0 L- 35 t ti MN 62 7- 6- 00 MA 97 Av [...] ai 73 07 08 FA la 1 AR bl LY e DR KAT 00 01 03 00 60 30 SO 27 No Ac AN 37 -1 -2 .0 PE 29 t ti FA 81 5- 5- 00 RS 09 Av ve CI 16 20 20 ai NE 00 08 08 FA la 1 1 AR bl LY e MG DR TA UG BL ET 14 03 03 02 40 20 SO 24 No Ac 62 -2 -2 .0 PE 67 t ti 90 0- 4- 00 RS 13 Av ve 20 20 20 ai 20 07 08 FA la 1 AR bl LY e [address] STEPHENS Immunization Name Date Rout CVX Reac Dose Comm Prov Is Faci e tion ent ider Refu lity Give sed n TDAP 07-0 115 SARMAD No IAN 6-20 ANITHA, ISLE VACC 09 INE [facility] 7 T IC YRS/ PSC > IM Procedures Procedure [place] [id number] [facility] PROGESTER 7 SATINDER SAT[facility] [place] [address] [facility] THYROID 7 SAT[facility] SAT[facility] STIMULATI [facility] NG HORMONE TSH URINE 88068 KAYLA BABB 7 [facility] TEST [facility] [place]ISUAL [place] [address] [facility] J[facility] ESTRADIOL 7 SATINDER SAT[facility]ER [facility] GONADOTRO [address] [facility] PIN 7 SATINDER SATINDER FOLLICLE [facility] [place] [address] [facility] J[facility] TESTOSTER 7 SATINDER SATINDER [facility] COLLECTIO 18542 KAYLA FRANKEL YOUNG N VENOUS 7 [facility] BLOOD [facility] VENIPUNCT CTR URE GONADOTRO 11073 [facility] J[facility] PIN 7 SATINDER SATINDER [facility] [place] [address] [facility] PROLACTIN 7 [facility] [place] [address] [facility] TESTOSTER 7 SATINDER SATINDER ONE TOTAL [facility] HOLD[facility] IADNA 125[address] [facility] CHLAMYDIA 7 SATINDER SATINDER HOLD[facility] HOLD[facility] TRACHOMAT IS AMPLIFIED PROBE TQ IADNA 32708 [facility] NEISSERIA 7 SATINDER SAT[facility] HOLD[facility] GONORRHOE AE AMPLIFIED PROBE TQ GONADOTRO 57318 [facility] PIN 7 SATINDER [facility] QUALITATI VE COLLECTIO 35265 JOSE DONATO N VENOUS 7 HEALTH BLOOD SOLUTIONS VENIPUNCT IN URE URINE 96221 JOSE KINGA 7 HEALTH TEST SOLUTIONS VISUAL IN COLOR CMPRSN METHS THERAPEUT 38723 [facility] IC 7 [facility] PROPHYLAC D D TIC/DX REGIONAL REGIONAL INJECTION HOS HOS SUBQ/IM CULTURE 14746 [facility] BACTERIAL 7 [facility] D D QUANTTATI REGIONAL REGIONAL VE COLONY HOS HOS COUNT URINE COMPREHEN 80377 [facility] SIVE 7 [facility] [place] METABOLIC D D PANEL [facility]IONAL REGIONAL HOS HOS GONADOTRO 60719 [facility] PIN 7 CUM[facility] CUMBER[facility]AN CHORIONIC D D REGIONAL REGIONAL QUALITATI HOS HOS VE URINALYSI 69334 [facility] S 7 [place] MICROSCOP D D IC ONLY REGIONAL REGIONAL HOS HOS BLOOD 30926 [facility] COUNT 7 [place] COMPLETE D D AUTO&AUTO REGIONAL REGIONAL DIFRNTL HOS HOS WBC URINE 49957 [facility] 7 [place] TEST D D VISUAL REGIONAL [facility] CMPRSN METHS PUNCTURE 13472 [facility] POTTS ASPIRATIO 7 [place] N ABSCESS EMERGENCY HEMATOMA SERV BULLA/CYS T SIMPLE 32101 [facility] ZHOU REPAIR 7 [place] SCALP/NEC EMERGENCY K/AX/MANNIE PHYS T/TRUNK 2.5CM/< RADEX 52691 [facility] [place] SPINE 7 RADIOLOGY LD IV LUMBOSACR AL 2/3 VIEWS COLLECTIO 51164 PASCUAL GARNER N VENOUS 7 [facility] VENIPUNCT URE RADEX 97480 [facility] [place] GARCÍA WRIST 7 RADIOLOGY COMPLETE MINIMUM 3 VIEWS BLOOD 17285 PASCUAL WRIGHTON COUNT 7 [facility] AUTO&AUTO DIFRNTL WBC RADIOLOGI 53874 PASCUAL GARNER C EXAM [address] VIEWS FRONTAL&L ATERAL COMPREHEN 42526 PASCUAL GARNER SIVE 7 [facility] PANEL IAADIADOO 18657 CLAY PAZ 7 CLINIC INFLUENZA CULTURE 01842 LAB JERRY LAB JERRY BACTERIAL 7 SATINDER SATINDER HOLDINGS HOLDINGS QUANTTATI VE COLONY COUNT URINE URINLS 21491 CLAY SALAMANCALER- DIP 7 CLINIC SE STICK/TAB LET REAGNT NON-AUTO MICRSCPY REMOVAL 26477 KAYLA CO RIOJAS NON-BIODE 7 [facility] DELIVERY IMPLANT RADEX 34067 [facility] [place] SCALF ANKLE 6 RADIOLOGY COMPLETE MINIMUM 3 VIEWS URINE 18917 CLAY PARKER 6 CLINIC TEST VISUAL COLOR CMPRSN METHS MRI BRAIN 67205 [facility] [place] KOSTELIC BRAIN 6 RADIOLOGY JOSE STEM W/O W/CONTRAS T MATERIAL INJECTION A9579 PASCUAL GARNER 6 [facility] M BASED MR CONTRAST NOS ML COLLECTIO 61123 CLAY PARKER N VENOUS 6 CLINIC BLOOD VENIPUNCT URE CUL BACT 75197 LAB JERRY LAB JERRY XCPT 6 SATINDER SATINDER URINE HOLDINGS HOLDINGS BLOOD/STO OL AEROBIC ISOL CULTURE 80242 LAB JERRY LAB JERRY BACTERIAL 6 SATINDER SATINDER ANY HOLDINGS HOLDINGS SOURCE ANAEROBIC ISO&ID SUSCEPTIB 73995 LAB JERRY LAB JERRY LTY STDY 6 SATINDER SATINDER ANTIMICRB HOLDINGS HOLDINGS IAL MICRO/AGA R DILUTJ COMPREHEN 57808 LAB JERRY LAB JERRY SIVE 6 SATINDER SATINDER METABOLIC HOLDINGS HOLDINGS PANEL BLOOD 12824 LAB JERRY LAB JERRY COUNT 6 SATINDER SATINDER COMPLETE HOLDINGS HOLDINGS AUTO&AUTO DIFRNTL WBC INSJ 19027 KAYLA BRYANT NON-BIODE 6 [facility] DELIVERY IMPLANT ETONOGEST J7307 KAYLA BRYANT REL 6 [facility]ILY [facility] IM[facility] SYS CTR INCL IMPL & SPL GONADOTRO 19158 MEADOWVIE MEADOWVIE PIN 6 W W CHORIONIC [facility] QUANTITAT FAUZIA COLLECTIO 14754 MEADOWVIE MEADOWVIE N VENOUS 6 W W BLOOD [facility]AL VENIPUNCT MEDICAL MEDICAL URE RADIOLOGI 71393 [facility] C EXAM 6 EIDER ELENA CHEST 2 RADIOLOGY VIEWS ASSOCIAT FRONTAL&L ATERAL ECG 54041 [facility] PORCOX MONETT ROUTINE 6 [place]ERSON CHRISTI ECG EMERGENCY W/LEAST PHYS 12 LDS I&R ONLY COLLECTIO 19916 MEADOWVIE MEADOWVIE N VENOUS 6 W W BLOOD [facility] VENIPUNCT MEDICAL MEDICAL URE GONADOTRO 51426 MEADOWVIE MEADOWVIE PIN 6 W W CHORIONIC [facility]ICAL QUANTITAT FAUZIA GONADOTRO 07265 MEADOWVIE MEADOWVIE PIN 6 W W CHORIONIC [facility] QUANTITAT FAUZIA COLLECTIO 70775 MEADOWVIE MEADOWVIE N VENOUS 6 W W BLOOD [facility] VENIPUNCT MEDICAL MEDICAL URE URNLS DIP 94162 KAYLA RIOJAS MANNY 6 FAMILY STICK/TAB HEALTH LET RGNT CTR NON-AUTO W/O MICRSCP URNLS DIP 02388 SURESH PRINCE 6 CO [facility] CO HEALTH STICK/TAB LET RGNT DEPARTMEN DEPARTMEN NON-AUTO T T W/O MICRSCP URINE 81938 SURESH PRINCE 6 [facility] CO HEALTH TEST VISUAL DEPARTMEN DEPARTMEN COLOR T T CMPRSN METHS GONADOTRO 41182 LAB JERRY LAB JERRY PIN 6 SATINDER SATINDER CHORIONIC HOLDINGS HOLDINGS QUALITATI VE ACUTE 78453 LAB JERRY LAB JERRY HEPATITIS 6 SATINDER SATINDER PANEL HOLDINGS HOLDINGS RADIOLOGI 68830 SURESH Edward 6 [facility] ON TIBIA & FIBULA 2 VIEWS RADIOLOGI 28200 SURESH Edward 6 [facility] ON KNEE 1/[address] [facility] 6 EIDER ELENA KNEE RADIOLOGY COMPLETE ASSOCIAT 4/[place] [address] LAB JERRY LAB JERRY LIPASE 6 SATINDER SATINDER HOLDINGS HOLDINGS GONADOTRO 54415 LAB JERRY LAB JERRY PIN 6 SATINDER SATINDER CHORIONIC HOLDINGS HOLDINGS QUANTITAT FAUZIA BILIRUBIN 60634 LAB JERRY LAB JERRY DIRECT 6 SATINDER [place] [address] LAB JERRY LAB JERRY AMYLASE 6 SATINDER SATINDER HOLDINGS HOLDINGS BLOOD 37300 LAB JERRY LAB JERRY COUNT 6 SATINDER SATINDER COMPLETE HOLDINGS HOLDINGS AUTO&AUTO DIFRNTL WBC HEMOGLOBI 67024 LAB JERRY LAB JERRY N 6 SATINDER SATINDER GLYCOSYLA HOLDINGS HOLDINGS MAXIMUS A1C COMPREHEN 23416 LAB JERRY LAB JERRY SIVE 6 SATINDER SATINDER METABOLIC HOLDINGS HOLDINGS PANEL COMPREHEN 80809 LAB JERRY LAB JERRY SIVE 5 SATINDER SATINDER METABOLIC HOLDINGS HOLDINGS PANEL IADNA NOS 50651 LAB JERRY LAB JERRY 5 SATINDER SATINDER AMPLIFIED HOLDINGS HOLDINGS PROBE TQ EACH ORGANISM IADNA 22096 LAB JERRY LAB JERRY NEISSERIA 5 SATINDER SATINDER HOLDINGS HOLDINGS GONORRHOE AE AMPLIFIED PROBE TQ IADNA 05185 LAB JERRY LAB JERRY TRICHOMON 5 SATINDER SATINDER HOLDINGS HOLDINGS VAGINALIS AMPLIFIED PROBE TECH IADNA 24034 LAB JERRY LAB JERRY CHLAMYDIA 5 SATINDER SATINDER HOLDINGS HOLDINGS TRACHOMAT IS AMPLIFIED PROBE TQ GONADOTRO 64670 LAB JERRY LAB JERRY PIN 5 SATINDER SATINDER CHORIONIC HOLDINGS HOLDINGS QUALITATI VE IADNA 13373 LAB JERRY LAB JERRY PRABHJOT 5 SATINDER SATINDER SPECIES HOLDINGS HOLDINGS AMPLIFIED PROBE TQ BLOOD 71194 LAB JERRY LAB JERRY COUNT 5 SATINDER SATINDER COMPLETE HOLDINGS HOLDINGS AUTO&[place] [address] LAB JERRY LAB JERRY AMYLASE 5 SATINDER SATINDER HOLDINGS HOLDINGS COLLECTIO 82579 CLAY SALGUERO- N VENOUS 5 CLINIC SE LIZETH BLOOD VENIPUNCT URE HPYLORI 25630 LAB JERRY LAB JERRY BREATH 5 SATINDER SATINDER ANAL HOLDINGS HOLDINGS URE[place] [address] LAB JERRY LAB JERRY LIPASE 5 SATINDER SATINDER HOLDINGS HOLDINGS CULTURE 36797 LAB JERRY LAB JERRY BACTERIAL 5 SATINDER SATINDER HOLDINGS HOLDINGS QUANTTATI VE COLONY COUNT URINE DESTRUCTI 27653 CLAY PAZ ON BENIGN 5 CLINIC LESIONS UP TO 14 COLLECTIO 11935 CLAY PAZ N VENOUS 5 CLINIC BLOOD VENIPUNCT URE URINLS 79062 CLAY PAZ DIP 5 CLINIC STICK/TAB LET REAGNT NON-AUTO MICRSCPY BLOOD 47361 LAB JERRY LAB JERRY COUNT 5 [facility] COMPLETE HOLDINGS HOLDINGS AUTO&AUTO DIFRNTL WBC COMPREHEN 07917 LAB JERRY LAB JERRY SIVE 5 [facility] METABOLIC HOLDINGS HOLDINGS PANEL PRESSURIZ 25496 CLAY SALGUERO- ED/NONPRE 5 CLINIC SE LI[facility] SSURIZED INHALATIO N TREATMENT HEPATITIS 44005 SHANTAL MURGUIA B CORE 5 [facility] ANTIBODY INC INC HBCAB TOTAL HEPATITIS 70861 SHANTAL [place] SURF 5 [facility] [place] [address] SHANTAL MURGUIA HEPATITIS 5 [facility] B INC INC SURFACE ANTIGEN GONADOTRO 64518 SHANTAL MURGUIA PIN 5 [facility] [place] [address] SHANTAL MURGUIA PROLACTIN 5 [facility] INC INC HEPATITIS 74781 SHANTAL MURGUIA A 5 [facility] ANTIBODY INC INC HAAB GENERAL 78124 SHANTAL MURGUIA HEALTH 5 [facility] PANEL INC INC LIPID 73029 SHANTAL MURGUIA PANEL 5 [facility] INC INC HEPATITIS 76752 SHANTAL MURGUIA C 5 [facility] [place] [address] SHANTAL MURGUIA FREE 5 [facility] THYROXINE INC INC COLLECTIO 94977 SHANTAL MURGUIA N VENOUS 5 [facility] BLOOD INC INC VENIPUNCT URE URINLS 03765 CLAY SALGUERO- DIP 5 CLINIC SE LIZETH STICK/TAB LET REAGNT NON-AUTO MICRSCPY CULTURE 55297 LAB JERRY LAB JERRY BACTERIAL 5 [facility] HOLDINGS HOLDINGS QUANTTATI VE COLONY COUNT URINE INJECTION J1885 XENIA MARSHALLURDES [address] [place] [address] KETOROLAC TROMETHAM INE PER 15 MG THERAPEUT 92107 XENIA MARSHALLURDES IC [address] [place] [address] PROPHYLAC TIC/DX INJECTION SUBQ/IM GROUND A0425 GOLDSMITH GOLDSMITH MILEAGE [address] [place] [address] PER AMBULANCE AMBULANCE STATUTE MILE CRTCHS E0114 GOULDS GOULDS UNDARM 5 DISCOUNT DISCOUNT OTH THAN MEDICAL MEDICAL WOOD PAIR PAD TIP&HNDGR IP RADEX 93220 RADIOLOGY ELVIRA PARKER ANKLE 5 GROUP OF COMPLETE PADUCAH, MINIMUM 3 VIEWS ANKLE L4350 GOULDS GOULDS CONTROL 5 DISCOUNT DISCOUNT ORTHOSIS MEDICAL MEDICAL STIRRUP STYL RIGID PREFAB GROUND A0425 GOLDSMITH GOLDSMITH MILEAGE [address] [place] [address] PER AMBULANCE AMBULANCE STATUTE MILE RADEX 64974 RADIOLOGY ELVIRA PARKER SPINE 5 GROUP OF LUMBOSACR PADUCAH, AL MINIMUM 4 VIEWS AMBULANCE A0429 GOLDSMITH GOLDSMITH SERVICE [address] [place] [address] BLS AMBULANCE AMBULANCE EMERGENCY TRANSPORT AMB A0427 GOLDSMITH GOLDSMITH SERVICE [address] [place] [address] ALS AMBULANCE AMBULANCE EMERGENCY TRANSPORT LEVEL 1 RADEX 39300 RADIOLOGY KRISTY SPINE 5 GROUP OF RHONDA LUMBOSACR PADUCAH, AL MINIMUM 4 VIEWS GROUND A0425 GOLDSMITH GOLDSMITH MILEAGE [address] [place] [address] PER AMBULANCE AMBULANCE STATUTE MILE BASIC 73924 SHANTAL MURGUIA METABOLIC 5 [facility] [place] [address] [facility], PICKLESIM SURG 5 LLC [facility] PATHOLOGY GROSS&[place] [address] SHANTAL MURGUIA INFUSION 5 [facility] THERAPY/P INC INC ROPHYLAXI S /DX 1ST TO 1 HR THERAPEUT 47060 SHANTAL MURGUIA IC 5 [facility] INJECTION INC INC IV PUSH EACH NEW DRUG BLOOD 83414 SHANTAL MURGUIA COUNT 5 [facility] COMPLETE INC INC AUTO&AUTO DIFRNTL WBC ANESTHESI 92206 [facility] RANDALLIA 5 ANESTH MARTHA INCOMPLET OF THE E/MISSED BLUE [place] MISSED 80093 SHANTAL MURGUIA 5 [facility] [place] [address] SHANTAL MURGUIA INFUSION 5 [facility] THERAPY INC INC PROPHYLAX IS/DX EA HOUR US PREG 08133 [facility] UTERUS 5 PHYSICIAN CHARITY REAL TIME S GROUP W/IMAGE DCMTN TRANSVAG HEPATIC 04816 SHANTAL MURGUIA FUNCTION 5 [facility] PANEL INC [facility] G0378 SHANTAL MURGUIA OBSERVATI 5 [facility] ON INC INC SERVICE PER HOUR COLLECTIO 01251 SHANTAL MURGUIA N VENOUS 5 [facility] BLOOD INC INC VENIPUNCT URE OBSERVATI 20541 [facility] ON CARE 5 PHYSICIAN BETH DISCHARGE S GROUP MANAGEMEN T COLLECTIO 85015 SHANTAL MURGUIA N VENOUS 5 [facility] [place]LOOD [place] [address] SHANTAL MURGUIA LIPASE 5 [facility] INC INC HEPATITIS 84577 SHANTAL MURGUIA A 5 [facility] ANTIBODY INC INC HAAB GONADOTRO 70888 SHANTAL MURGUIA PIN 5 [facility] CHORIONIC INC INC QUANTITAT FAUZIA INITIAL 72397 [facility] OBSERVATI 5 PHYSICIAN BETH ON S GROUP CARE/DAY 30 MINUTES COMPREHEN 61007 SHANTAL MURGUIA SIVE 5 [facility] METABOLIC INC INC [facility] G0378 SHANTAL MURGUIA OBSERVATI 5 [facility] ON INC INC SERVICE PER HOUR HEPATITIS 71681 SHANTAL MURGUIA C 5 [facility] ANTIBODY INC INC HEPATITIS 08366 SHANTAL MURGUIA B CORE 5 [facility] [place] [address] SHANTAL MURGUIA HEPATITIS 5 [facility] B INC INC SURFACE ANTIGEN HEPATITIS 71009 SHANTAL MURGUIA B SURF 5 [facility] ANTIBODY INC INC HBSAB URNLS DIP 75131 SHANTAL MURGUIA 5 [facility] STICK/TAB INC INC LET REAGENT AUTO MICROSCOP Y BLOOD 51319 SHANTAL MURGUIA COUNT 5 [facility] COMPLETE INC INC AUTO&AUTO DIFRNTL WBC URINE 36764 CLAY PARKER 5 CLINIC TEST VISUAL COLOR CMPRSN METHS SERVICES 98244 [facility] [place] GIN BTW 10 EMERGENCY PM&8 AM SERVI AT 24-HR FACI HEMOGLOBI 02431 LAB JERRY LAB JERRY N 5 SATINDER SATINDER GLYCOSYLA HOLDINGS [place] A1[place] [address] LAB JERRY LAB JERRY THYROID 5 [facility] STIMULATI HOLDINGS [place] [address] LAB JERRY LAB JERRY FREE 5 [facility] THYROXINE HOLDINGS HOLDINGS COLLECTIO 68857 CLAY PARKER N VENOUS 5 CLINIC BLOOD VENIPUNCT URE REPAIR 54055 [facility] MAXINE INTERMEDI 5 [place] EDW ATE EMERGENCY N/H/F/XTR PHYSI NL GENT 2.5CM/< THERAPEUT 10618 CLAY PARKER IC 4 CLINIC PROPHYLAC TIC/DX INJECTION SUBQ/IM INJECTION J1100 CLAY PARKER 4 CLINIC DEXAMETHO SONE SODIUM PHOSPHATE 1 MG BLOOD 76994 PASCUAL GARNER COUNT 4 [facility] AUTOMATED LIPID 31068 PASCUAL GARNER PANEL 4 [facility] COMPREHEN 75212 PASCUAL GARNER SIVE [address] [place] [address] PANEL CREATINE 35803 PASCUAL GARNER KINASE [address] [place] [address] [place] [address] PASCUAL GARNER THYROID 4 [facility] NG HORMONE TSH RADIOLOGI 85320 PASCUAL GARNER C [address] [place] [address] ON KNEE 3 VIEWS THERAPEUT 99068 CLAY SALGUERO- IC 4 [facility] PROPHYLAC TIC/DX INJECTION SUBQ/IM DEMO&/BRIE 35287 CLAY SALGUERO- L OF PT 4 CLINIC [...] [facility] R EQUIPME EQUIPME PRESSURIZ 29312 CLAY SALGUERO- ED/NONPRE 4 CLINIC SE [facility] SSURIZED INHALATIO N TREATMENT INJECTION J1030 CLAY SALGUERO- 4 [facility] METHYLPRE DNISOLONE ACETATE 40 MG THERAPEUT 02503 CLAY SALGUERO- IC 4 CLINIC SE [facility] PROPHYLAC TIC/DX INJECTION SUBQ/IM RADEX 59791 KYLEON KYLEON FINGR [address] HOSPITAL VIEWS URNLS DIP 18884 [facility] [employer], [employer], [address] REPORTER STICK/TAB [facility] [place] LET RGNT CO HOS CO HOS AUTO W/O MICROSCOP Y INJECTION J2405 [employer], [employer], [address]ITAL [address] REPORTER ONDANSETR [facility] [place] ON HCL CO HOS CO HOS PER 1 MG GONADOTRO 72920 [employer], [employer], PIN [address]POR[address] REPORTER CHORIONIC [facility] [place] CO HOS CO HOS QUALITATI VE BLOOD 76337 [facility] [employer], [employer], COUNT [address] REPORTER COMPLETE [facility] [place] AUTO&AUT[place] [address] [facility] INC, [employer], INFUSION [address] REPORTER THERAPY/P [facility] [place] ROPHYLAXI CO HOS CO HOS S /DX 1ST TO 1 HR BASIC 99850 [facility] INC, [facility] INC, METABOLIC [address]POR[address] REPORTER PANEL [facility] [place] CALCIUM CO HOS CO HOS TOTAL LIPID 87170 LAB JERRY LAB JERRY PANEL 4 OF SATINDER SATINDER HOLDING HOLDING GENERAL 98489 LAB JERRY LAB JERRY HEALTH 4 OF SATINDER PANEL [facility] COLLECTIO 18063 CLAY SIMENTALON N VENOUS 4 CLINIC HEN BLOOD VENIPUNCT URE ANTIBODY 77286 [facility] [employer], [facility] INC, INFLUENZA [address]POR[address] REPORTER VIRUS [facility] [place] CO HOS CO HOS IAADIADOO 54273 CLAY SALGUERO- 4 [facility] STREPTOCO CCUS GROUP A RADIOLOGI 05895 TERRI MURRAY C EXAM 3 [facility] CHEST 2 VIEWS FRONTAL&L ATERAL THERAPEUT 31391 CLAY SALGUERO- IC 3 CLINIC SE [facility] PROPHYLAC TIC/DX INJECTION SUBQ/IM URINLS 27171 CLAY CLAY DIP 3 CLINIC CLINIC STICK/TAB LET REAGNT NON-AUTO MICRSCPY IAADIADOO 82208 CLAY SALGUERO- 3 CLINIC SE [facility] STREPTOCO [employer] A ORTHOTIC 88706 [facility] INC, [facility] INC, MGMT&EHSAN [address]POR[address]ITAL [address] REPORTER [place] UXTR [facility] LXTR&/TRN CO HOS CO HOS K EA 15 RADEX 95330 [facility] [employer], [employer], ANKLE [address]POR[address] REPORTER COMPLETE [facility] [place] MINIMUM 3 CO HOS CO HOS VIEWS COMPREHEN 74068 [facility] [employer], [employer], SIVE [address]POR[address] REPORTER METABOLIC [facility] [place] PANEL CO HOS CO HOS DRUG 53778 [facility] [employer], [employer], SCREEN [address] REPORTER QUANTITAT RA[facility] FAUZIA CO HOS CO HOS LITHIUM SUSCEPTIB 17940 [facility] LTY STDY 3 DIAGNOSTI DIAGNOSTI ANTIMICRB CS CS IAL MICRO/AGA R DILUTJ CULTURE 06671 [facility] TYPING 3 DIAGNOSTI DIAGNOSTI IMMUNOLOG CS CS IC OTH/THN IMMUNOFLU ORES CUL BACT 79083 [facility] XCPT 3 DIAGNOSTI DIAGNOSTI URINE CS CS BLOOD/STO OL AEROBIC ISOL COMPREHEN 05314 [employer], [employer], SIVE [address] REPORTER METABOLIC RAH RAH PANEL CO HOS CO HOS DRUG 36767 [employer], [employer], SCREEN [address] REPORTER QUANTITAT RAH RAH FAUZIA CO HOS CO HOS LITHIUM US SOFT 89749 [employer], [employer], TISSUE [address]POR[address]ITAL [address] REPORTER HEAD & RAH RAH NECK REAL CO HOS CO HOS TIME IMGE DOCM THERAPEUT 88172 CLAY JOSE M IC 3 CLINIC STONE PROPHYLAC MEDICAL TIC/DX SVCS INJECTION SUBQ/IM MAX 38269 JENNIFER RODRIGUEZ BREATHING 3 Mar CAPACITY MAXIMAL VOLUNTARY VENTJ PRESSURIZ 18063 JENNIFER RODRIGUEZ ED/NONPRE 3 Mar SSURIZED INHALATIO N TREATMENT RADIOLOGI 64943 SHANTAL MURGUIA C 2 [facility] EXAMINATI INC INC ON PELVIS 1/2 VIEWS RADEX HIP 48118 SHANTAL MURGUIA 2 [facility] UNILATERA INC INC L COMPLETE MINIMUM 2 VIEWS CRTCHS E0114 [facility] UNDARM 2 OTH THAN WOOD PAIR PAD TIP&[place] [address] [facility] ABDOMEN & 2 EIDER ELENA PELVIS RADIOLOGY W/CONTRAS ASSOCIAT T MATERIAL RADIOLOGI 82495 [facility] C EXAM 2 EIDER ELENA CHEST 2 RADIOLOGY VIEWS ASSOCIAT FRONTAL&L ATERAL INJECTION J2550 JENNIFER RODRIGUEZ 2 Mar PROMETHAZ INE HCL UP TO 50 MG ADMN SET A7005 ZEN ZALDIVAR W/SM VOL 2 HOSP HOSP NONFILTR EQUIP EQUIP NEBULIZR NON-DISPB L RADIOLOGI 96863 [facility] C EXAM 2 JOY CHEST 2 RADIOLOGY VIEWS ASSOCIAT FRONTAL&L ATERAL ANTIBODY 81195 [employer], [employer], INFLUENZA [address] REPORTER VIRUS [facility] CO HOS CO HOS CULTURE 09778 SHANTAL MURGUIA BACTERIAL 1 [facility] INC [place] [address] SHANTAL MURGUIA ABDOMEN & 1 [facility] PELVIS INC INC W/[place] [address] SHANTAL [facility]URGUIA LIPASE 1 [facility] INC INC URINE 07732 SHANTAL MURGUIA 1 [facility] TEST INC INC [place] [address] SHANTAL MURGUIA AMYLASE 1 [facility] INC INC BLOOD 89071 SHANTAL MURGUIA COUNT 1 [facility] COMPLETE INC INC AUTO&AUTO DIFRNTL WBC URNLS DIP 28873 SHANTAL MURGUIA 1 [facility] STICK/TAB INC INC LET REAGENT AUTO MICROSCOP Y 3D 79461 KENNEDY KENNEDY RENDERING 1 ELSA ELSA W/INTERP& POSTPROC DIFF WORK STATION COMPREHEN 79459 SHANTAL MURGUIA SIVE 1 [facility] METABOLIC INC INC PANEL LAPAROSCO 92883 Cheyanne ROSA PY SURG 1 MOE COPELAND MD PSC ECTOMY INJECTION J2405 SHANTAL MURGUIA 1 [facility] ONDANSETR INC INC ON HCL PER 1 [place] [address] SHANTAL MURGUIA INFUSION 1 [facility] THERAPY INC INC PROPHYLAX IS/DX EA HOUR LEVEL III 37661 ADRIENNE ADRIENNE SURG 1 RODNEY RODNEY PATHOLOGY GROSS&BETH ROSCOPIC EXAM GONADOTRO 31876 SHANTAL MURGUIA PIN 1 [facility] CHORIONIC INC INC QUALITATI VE BLOOD 54178 SHANTAL MURGUIA COUNT 1 [facility] COMPLETE INC INC AUTO&AUTO DIFRNTL WBC HEPATBL 41273 TEN CAAL DUX SYS 1 [facility] [place] [address] LEANA NEVAREZ ABDOMINAL 1 [facility] REAL RADIOLOGY TIME ASSOCIAT W/IMAGE LIMITED OBSERVATI 93948 JENNIFER RODRIGUEZ ON CARE 1 Mar DISCHARGE MANAGEMEN T RADIOLOGI 27350 [facility] C EXAM 1 FR[facility]ERIC CHEST 2 RADIOLOGY VIEWS ASSOCIAT FRONTAL&L ATERAL URNLS DIP 77363 [facility] LOM[facility] 1 AJITH AJITH STICK/TAB LET RGNT NON-AUTO W/O MICRSCP URINE 43288 GRUPO LOM[facility]ARDO 1 AJITH AJITH TEST VISUAL COLOR CMPRSN METHS COLLECTIO 84019 [facility] N VENOUS 1 Y Y BLOOD [facility] VENIPUNCT URE IMMUNOASS 38938 [facility] AY 1 Y Y ANALYTE [facility] QUAL/SEMI QUAL MULTIPLE STEP C-REACTIV 16015 [facility] E PROTEIN 1 [place] [address] [facility] GAMMAGLOB 1 Y Y [facility] IGD IGG IGM EACH BLOOD 41949 [facility] COUNT 1 Y Y COMPLETE [facility] AUTO&AUTO DIFRNTL WBC URNLS DIP 19406 [facility] 1 Y Y STICK/TAB [facility] LET REAGENT AUTO MICROSCOP Y COMPREHEN 17774 [facility] SIVE 1 Y Y [facility] PANEL RADEX 71381 RAH MONREAL SPINE 1 CO [facility] BR STANDING SCOLIOSIS RADEX 71575 TERRI MURRAY SPINE 1 JOY [facility] THORACOLU MBAR JUNCTION MIN 2 VIEWS DESTRUCTI 84421 [facility] ON BENIGN 1 DERMATOLO LES LESIONS GY UP TO 14 DESTRUCTI 42235 [facility] GRAVES ON BENIGN 1 DERMATOLO LES LESIONS GY UP TO [address] WANDY CARPIO [facility]A MEDICAL 1 VIS XM&EVAL WORLD COMPRE NEW PT 1/> VST FITTING 98852 DR WANDY CARPIO MARA SPECTACLE 1 VIS S XCPT WORLD APHAKIA MONOFOCAL SPHERE V2100 DR WANDY CARPIO MARA SINGLE 1 VIS VISION WORLD PLANO +/- 4.00 PER LENS FRAMES V2020 DR WANDY CARPIO MARA PURCHASES 1 VIS WORLD DESTRUCTI 32224 [facility]ED GRAVES ON BENIGN 1 DERMATOLO LES LESIONS GY UP TO 14 INJECTION J1030 [facility] 1 [facility] METHYLPRE PSC DNISOLONE ACETATE 40 MG THERAPEUT 27786 [facility] IC 1 [facility]IN[facility] PROPHYLAC PSC TIC/DX INJECTION SUBQ/IM INJECTION J1100 [facility] 1 [facility] DEXAMETHO PSC SONE SODIUM PHOSPHATE 1 MG INJECTION J0696 [facility] 1 [facility] CEFTRIAXO PSC NE SODIUM PER 250 MG DESTRUCTI 46906 [facility] ON 1 [facility]IN[facility] PREMALIGN PSC ANT LESION 1ST RADEX 83499 NELYJOSE F [place] ANKLE 1 [facility] COMPLETE RADIOLOGY MINIMUM 3 ASSOCIAT VIEWS RADEX ABD 02961 [facility] COMPL 0 [facility] AQT ABD RADIOLOGY W/S/E/D ASSOCIAT VIEWS 1 VIEW CH PURE TONE 09575 BRENDA GUTIERREZ 0 JAROD JAROD AUDIOMETR Y AIR & BONE TYMPANOME 41561 BRENDA SINCLAIRON TRY 0 JAROD JAROD ANALGESIA D9230 NYA NYA 0 DMD, DMD, ANXIOLYSI CHELSEA CHELSEA S INHALATIO N OF NITROUS OXIDE URINE 96541 CLAY RODRIGUEZ 0 CLINIC JOSEFINA TEST PSC VISUAL COLOR CMPRSN METHS ANALGESIA D9230 NYA NYA 0 DMD, DMD, ANXIOLYSI CHELSEA CHELSEA S INHALATIO N OF NITROUS OXIDE COLLECTIO 75356 [facility] N VENOUS 0 CO CO BLOOD [facility] VENIPUNCT URE CUL BACT 18885 [facility] XCPT 0 CO CO URINE [facility] BLOOD/STO OL AEROBIC ISOL SEDIMENTA 07719 [facility] TION RATE 0 CO CO RBC [facility] NON-AUTOM ATED GENERAL 57892 [facility] HEALTH 0 CO [place] [address] [facility] MONREAL STREPTOCO 0 CO CO CCUS [facility] GROUP A RADIOLOGI 88274 [place] VINES EXAM 0 TINO S CHEST 2 RADIOLOGY VIEWS FRONTAL&L ASSOCIATE ATERAL S PSC URNLS DIP 36630 [facility] MONREAL 0 CO CO STICK/TAB [facility] LET REAGENT AUTO MICROSCOP Y HETEROPHI 44178 [facility] ZARATE 0 CO CO ANTIBODIE [facility] S SCREEN APPLICATI 23549 RA[facility] GAN, ON FINGER 0 CO [facility] STATIC RADIOLOGI 89814 [place] LEONG EXAM 0 MEDICAL [facility] K[facility]EE IMAGING COMPLETE ASSOCIATE 4/MORE S VIEWS ANTIBODY 82229 [facility]RE[facility] HELICOBAC [address] [facility] PYLORI COLLECTIO 52890 [facility] N VENOUS 9 CO [place] BLOOD [facility] VENIPUNCT URE RADEX 22306 [facility] SPINE 9 [facility] STANDING SCOLIOSIS RADEX 99596 [facility] SPINE 9 TINO S SCOLIOS RADIOLOGY STUDY W/SUPINE ASSOCIATE & ERECT S PSC STUDY RADIOLOGI 71022 [facility] 9 [facility] [facility] ON KNEE 3 VIEWS APPLICATI 95577 [facility] GAN, ON LONG 9 [facility] SPLINT THIGH ANKLE/TOE S RADIOLOGI 45817 [facility] C EXAM 9 EIDER, KNEE RADIOLOGY BRAULIO COMPLETE K 4/MORE ASSOCIATE VIEWS S PSC NEBULIZER E0570 [place] WITH 9 HOME HOME COMPRESSO [facility]ICAL MEDICAL R EQUIPMENT EQUIPMENT ADMN SET [id number] [place] W/SM VOL 9 HOME HOME NONFILTR MEDICAL MEDICAL NEBULIZR EQUIPMENT EQUIPMENT NON-DISPB L RADIOLOGI 71866 [facility] MONREAL C EXAM 9 CO CO CHEST 2 [facility] VIEWS FRONTAL&L ATERAL BLOOD 70403 RAH SCHROEDER 9 CO CO [facility] AUTO&AUTO DIFRNTL WBC COLLECTIO 85522 [facility] MONREAL N VENOUS 9 CO VT BLOOD [facility] VENIPUNCT URE BLOOD 63946 [facility] MONREAL COUNT 9 CO CO SMEAR [facility] MCRSCP W/MNL DIFRNTL WBC COUNT MAX 78016 [facility], BREATHING 9 CLINIC LANCE CAPACITY PSC MAXIMAL VOLUNTARY VENTJ NONINVASI 42396 [facility], VE 9 CLINIC LANCE EAR/PULSE PSC OXIMETRY SINGLE DETER RADIOLOGI 80640 [facility] MONREAL C 9 [facility] ON KNEE 3 VIEWS APPLICATI 53377 RAH GAN, ON LONG 9 [facility] SPLINT THIGH ANKLE/TOE S TDAP 58503 [facility], VACCINE 7 9 CLINIC LANCE YRS/> IM PSC ANALGESIA D9230 NYA NYA 9 DMD, DMD, ANXIOLYSI CHELSEA CHELSEA S INHALATIO N OF NITROUS OXIDE RADEX 12058 [facility], SPINE 8 TINO Gordillo SCOLIOS RADIOLOGY STUDY W/SUPINE ASSOCIATE & ERECT S PSC STUDY RADEX 99085 [facility] FINGR 8 TINO Gordillo MINIMUM 2 RADIOLOGY VIEWS ASSOCIATE S PSC URNLS DIP 88126 [facility], 8 [facility] LANCE STICK/TAB PSC LET RGNT NON-AUTO W/[place] [address] [facility], ABDOMEN 8 TINO S W/CONTRAS RADIOLOGY T MATERIAL ASSOCIATE S PSC CT PELVIS 63109 [facility], TINO Gordillo W/CONTRAS RADIOLOGY T MATERIAL ASSOCIATE S PSC IAADIADOO 48275 [facility], 8 CLINIC LANCE STREPTOCO PSC CCUS GROUP A INJECTION J2550 [facility], 8 CLINIC LANCE PROMETHAZ PSC INE HCL UP TO 50 MG MAX 25927 [facility], BREATHING 8 CLINIC LANCE CAPACITY PSC MAXIMAL VOLUNTARY VENTJ PRESSURIZ 53220 [facility], ED/NONPRE 8 CLINIC LANCE SSURIZED PSC INHALATIO N TREATMENT RADIOLOGI 21703 [facility] G[facility]I EXAM 8 TINO Gordillo CHEST 2 RADIOLOGY VIEWS FRONTAL&L ASSOCIATE ATERAL S PSC IAADIADOO 63591 [facility], 8 CLINIC LANCE STREPTOCO PSC CCUS GROUP A WOUND [id number] RAHHEATHER MONREAL CLOSURE 8 CO CO UTILIZING [facility] TISSUE ADHESIVE ONLY SPMTRY 37618 DORIS, DORIS, W/VC 8 TARAH B TARAH B EXPIRATOR Y ALEX W/WO MXML VOL VNTJ Encounters Encounter Start End Date Code Location Performer Type Date OFFICE 42663 [facility] OUTPATIEN 7 7 FAMILY T VISIT HEALTH 15 CTR MINUTES OFFICE 78417 JOSE DONATO OUTPATIEN 7 7 HEALTH T VISIT SOLUTIONS 25 IN MINUTES OFFICE 94961 JOSE DONATO OUTPATIEN 7 7 HEALTH T VISIT SOLUTIONS 25 IN MINUTES OFFICE 53827 JOSE DONATO OUTPATIEN 7 7 HEALTH T VISIT SOLUTIONS 15 IN MINUTES EMERGENCY 66873 [facility] BILL 7 7 [facility] DEPARTMEN EMERGENCY T VISIT PHYS MODERATE SEVERITY EMERGENCY 46478 [facility] PROUDFOOT 7 7 [facility] DEPARTMEN EMERGENCY T VISIT PHYS HIGH/URGE NT SEVERITY HOSPITAL WHITING - 7 7 [facility] OUTPATIEN D T REGIONAL HOS EMERGENCY 15586 [facility] CEHMA 7 7 [facility] DEPARTMEN EMERGENCY T VISIT PHYS LIMITED/M INOR PROB OFFICE 35949 JOSE ZAVALETA OUTPATIEN 7 7 HEALTH II T NEW 10 SOLUTIONS MINUTES IN EMERGENCY 67927 [facility] KATLYN 7 7 [facility] DEPARTMEN EMERGENCY T VISIT SERV MODERATE SEVERITY EMERGENCY 09205 [facility] ZHOU 7 7 [facility] DEPARTMEN EMERGENCY T VISIT PHYS MODERATE SEVERITY EMERGENCY 11904 [facility] CHEMA 7 7 [facility] DEPARTMEN EMERGENCY T VISIT PHYS LOW/MODER SEVERITY EMERGENCY 14959 [facility] KAY 7 7 [facility] DEPARTMEN EMERGENCY T VISIT PHYS MODERATE SEVERITY [facility]OSP[facility] [place] - 7 7 [facility] T OFFICE 75312 C[facility] PAZ OUTPATIEN 7 7 CLINIC T VISIT 15 MINUTES OFFICE 37849 [facility] CLINIC SE T VISIT 15 MINUTES OFFICE 44899 KAYLA RIOJAS OUTPATIEN 7 7 FAMILY T VISIT HEALTH 10 CTR MINUTES EMERGENCY 96866 [facility] 6 6 [facility]FF[facility] DEPARTMEN EMERGENCY T VISIT PHYS MODERATE SEVERITY OFFICE 02308 [facility]LAY PAZ ELENA OUTPATIEN 6 6 CLINIC T VISIT 15 MINUTES OFFICE 97406 [facility] PAZ ELENA OUTPATIEN 6 6 CLINIC T VISIT 15 MINUTES [facility] OFF[facility] 65893 C[facility] PARKER OUTPATIEN 6 6 CLINIC T VISIT 15 MINUTES OFFICE 02288 [facility] OUTPATIEN 6 6 CLINIC T VISIT 15 MINUTES OFFICE 72454 [facility] PARKER OUTPATIEN 6 6 CLINIC T VISIT 15 MINUTES HOSPITAL [facility] - 6 6 [facility]ICAL [facility] 25167 KAYLA FRANKEL BEULAH BRYANT OUTPATIEN 6 6 FAMILY T VISIT HEALTH 15 CTR [address] EMERGENCY 47063 [facility] 6 6 [facility] CHRISTI DEPARTMEN EMERGENCY T VISIT PHYS HIGH/URGE NT SEVERITY OFFICE 62390 KAYLA FRANKEL BEULAH BRYANT OUTPATIEN 6 6 FAMILY T VISIT HEALTH 15 CTR MINUTES HOSPITAL [facility] - 6 6 [facility] - 6 6 [facility] OFFICE 30212 KAYLA FRANKEL WISAM ROSEMARIE OUTPATIEN 6 6 FAMILY T VISIT HEALTH 15 CTR MINUTES EMERGENCY 72222 [facility] 6 6 [facility] DEPARTMEN EMERGENCY T VISIT PHYS HIGH/URGE NT SEVERITY OFFICE 40152 KAYLA CO RIOJAS MANNY OUTPATIEN 6 6 FAMILY T NEW 20 HEALTH MINUTES CTR OFFICE 18213 SURESH PRINCE OUTPATIEN 6 6 CO HEALTH CO HEALTH T NEW 20 MINUTES DEPARTMEN DEPARTMEN T T HOSPITAL [place] - 6 6 [facility] EMERGENCY 61126 [place] 6 6 [facility]PITAL T VISIT MODERATE SEVERITY EMERGENCY 47718 [facility] 6 6 [facility] DEPARTMEN EMERGENCY T VISIT PHYS HIGH/URGE NT SEVERITY OFFICE 69211 [facility] SALGUERO- OUTPATIEN 5 5 CLINIC SE LIZETH T VISIT 15 MINUTES OFFICE 74956 CLAY PAZ OUTPATIEN 5 5 CLINIC T VISIT 15 MINUTES OFFICE 80693 CLAY SALGUERO- OUTPATIEN 5 5 CLINIC SE LIZETH T VISIT 15 MINUTES OFFICE 05666 CLAY SALGUERO- OUTPATIEN 5 5 CLINIC SE LIZ[facility] T VISIT 15 MINUTES HOSPITAL SHANT[facility] - 5 5 [facility] OUTPATIEN INC T OFFICE 22834 CLAY SALGUERO- OUTPATIEN 5 5 CLINIC SE LIZETH T VISIT 15 MINUTES EMERGENCY 02009 X[facility] 5 5 HOSPITAL DEPARTMEN T VISIT MODERATE SEVERITY HOSPITAL XENIA - 5 5 HOSPITAL OUTPATIEN T EMERGENCY 51121 TERRANCE 5 5 MEDICAL DEPARTMEN ASSOCIATE T VISIT S LOW/MODER SEVERITY EMERGENCY 09542 [facility] FINA 5 5 JEFFERSON JR THO DEPARTMEN EMERGENCY T VISIT PHYS MODERATE SEVERITY EMERGENCY 43921 [facility] VANESSA 5 5 JEFFERSON TAR DEPARTMEN EMERGENCY T VISIT PHYS HIGH/URGE NT SEVERITY HOSPITAL SHANT[facility] - 5 5 [facility] OUTPATIEN INC T EMERGENCY 61024 SARAH CASPER DOU 5 5 PHYSICIAN [facility] S, [facility] T VISIT HIGH/URGE NT SEVERITY EMERGENCY 73173 [facility] 5 5 [facility] INC T VISIT HIGH/URGE NT SEVERITY HOSPITAL SHANTAL - 5 5 [facility] OUTPATIEN [facility] T EMERGENCY 18192 [place] 5 5 [facility] T VISIT LIMITED/M INOR [facility] KYLE[place] - 5 5 [facility] T EMERGENCY 87614 [facility] GIBSON 5 5 JEFFERSON [facility] EMERGENCY T VISIT PHYS MODERATE SEVERITY OFFICE 83212 [facility] 5 5 CLINIC T VISIT 15 MINUTES EMERGENCY 39821 [facility] KATLYN 5 5 JEFFERSON [facility] EMERGENCY T VISIT SERVI HIGH/URGE NT SEVERITY OFFICE 60603 [facility] PARKER OUTPATIEN 5 5 CLINIC T VISIT 15 MINUTES OFFICE 21726 [facility] OUTPATIEN 5 5 CLINIC SE LIZETH T VISIT 10 MINUTES OFFICE 61412 [facility] OUTPATIEN 5 5 CLINIC SE LIZETH T VISIT 10 MINUTES EMERGENCY 12992 [facility] MAXINE 5 5 JEFFERSON [facility] EMERGENCY T VISIT PHYSI HIGH/URGE NT SEVERITY OFFICE 49850 [facility] PARKER OUTPATIEN 4 4 CLINIC T VISIT 15 MINUTES HOSPITAL PASCUAL - [address] [facility] H[facility]PITAL KYLEON - 4 4 [facility] T OFFICE 33035 [facility] P[facility]ENS OUTPATIEN 4 4 CLINIC SE LIZETH T VISIT 15 MINUTES OFFICE 73031 [facility] SALGUERO- OUTPATIEN 4 4 CLINIC SE LIZETH T VISIT 15 MINUTES OFFICE 57882 [facility] SALGUERO- OUTPATIEN 4 4 CLINIC SE LIZETH T VISIT 15 MINUTES OFFICE 85207 C[facility] SALGUERO- OUTPATIEN 4 4 CLINIC SE LI[facility] T VISIT 25 MINUTES OFFICE 15522 [facility] SALGUERO- OUTPATIEN 4 4 CLINIC SE LIZ[facility] T VISIT 15 MINUTES OFFICE 81565 [facility] SALGUERO- OUTPATIEN 4 4 CLINIC SE LIZETH T VISIT 15 MINUTES HOSPITAL [place] - 4 4 [facility] T OFFICE 16493 CLAY SALGUERO- OUTPATIEN 4 4 CLINIC SE LIZETH T VISIT 15 MINUTES OFFICE 80511 [facility] SALGUERO- OUTPATIEN 4 4 CLINIC SE LIZ[facility] T VISIT 25 MINUTES EMERGENCY 69546 [facility], [address] REPORTER DEPARTMEN RAH T VISIT CO HOS HIGH/URGE NT SEVERITY HOSPITAL [facility], - [address] REPORTER OUTPATIEN RAH T CO HOS EMERGENCY 86160 [facility], [address] REPORTER DEPARTMEN RAH T VISIT CO HOS LOW/MODER SEVERITY EMERGENCY 03240 RICK CABRERA 4 4 ASHLEY ASHLEY DEPARTMEN T VISIT MODERATE SEVERITY HOSPITAL [facility], - [address] REPORTER OUTPATIEN RAH T CO HOS OFFICE 57524 [facility] SALGUERO- OUTPATIEN 4 4 CLINIC SE LIZ[facility] T VISIT 15 MINUTES HOSPITAL [facility], - [address] REPORTER OUTPATIEN RAH T CO HOS OFFICE 21666 [facility] SALGUERO- OUTPATIEN 3 3 CLINIC SE LIZETH T VISIT 15 MINUTES OFFICE 07160 GRAVES GRAVES OUTPATIEN 3 3 LES LES T VISIT 15 MINUTES OFFICE 02941 [facility] SALGUERO- OUTPATIEN 3 3 CLINIC SE LIZETH T VISIT 25 MINUTES OFFICE 79168 [facility] SALGUERO- OUTPATIEN 3 3 CLINIC SE LIZ[facility] T VISIT 25 MINUTES OFFICE 35004 [facility], OUTPATIEN [address] REPORTER T VISIT 5 RAH MINUTES CO HOS HOSPITAL [facility], - [address] REPORTER OUTPATIEN RAH T CO HOS HOSPITAL [facility] INC, - [address] REPORTER OUTPATIEN RAH T CO HOS OFFICE 00304 GRAVES GRAVES OUTPATIEN 3 3 LES LES T VISIT 25 MINUTES HOSPITAL [facility] INC, - [address] REPORTER OUTPATIEN RAH T CO HOS HOSPITAL [facility] INC, - [address] REPORTER OUTPATIEN RAH T CO HOS OFFICE 03605 [facility] SALGUERO- OUTPATIEN 3 3 CLINIC SE LIZETH T VISIT 15 MINUTES OFFICE 87973 [facility] SALGUERO- OUTPATIEN 3 3 CLINIC SE LIZETH T VISIT 15 MINUTES OFFICE 06628 JENNIFER RODRIGUEZ OUTPATIEN 3 3 Mar T VISIT 25 MINUTES HOSPITAL SHANTAL - 2 2 [facility] OUTPATIEN INC T EMERGENCY 02022 ADRIENNE STEWART 2 2 EMERGENCY DEPARTMEN SERVICES T VISIT HIGH/URGE NT SEVERITY EMERGENCY 43516 SH[facility] 2 2 [facility] DEPARTMEN INC T VISIT LOW/MODER SEVERITY OFFICE 69481 JENNIFER RODRIGUEZ OUTPATIEN 2 2 Mar T VISIT 15 MINUTES OFFICE 36154 JENNIFER RODRIGUEZ OUTPATIEN 2 2 Mar T VISIT 15 MINUTES EMERGENCY 75067 ADRIENNE MARIELOSFRANKIE SHORT 2 2 EMERGENCY DEPARTMEN SERVICES T VISIT HIGH/URGE NT SEVERITY OFFICE 19256 GRUPO VEE 2 2 AJITH AJITH T VISIT 25 MINUTES HOSPITAL [facility], - [address] REPORTER OUTPATIEN RAH T CO HOS OFFICE 99257 CLAY VEE 2 2 CLINIC JOSEFINA T VISIT PSC 25 MINUTES EMERGENCY 36182 [facility], [address] REPORTER DEPARTMEN RAH T VISIT CO HOS MODERATE SEVERITY HOSPITAL [facility], - [address] REPORTER OUTPATIEN RAH T CO HOS EMERGENCY 43997 [place] [facility] 1 1 VISIT HIGH SEVERITY& THREAT FUNJ EMERGENCY 12897 SH[facility] 1 1 [facility] DEPARTMEN INC T VISIT HIGH/URGE NT SEVERITY HOSPITAL [facility] - 1 1 [facility] SHANTAL - 1 1 [facility] SHANTLA - 1 1 [facility] 99560 C KHADIJAH CONSULTAT 1 1 MOE MULLINS MD PSC NEW/ESTAB PATIENT 60 MIN [facility]OSPITAL [place] - 1 1 [facility] T OFFICE 48732 CLAY VEE 1 1 CLINIC AJITH T VISIT PSC 15 MINUTES OFFICE 80946 [facility]LAY VEE 1 1 CLINIC AJITH T VISIT PSC 25 MINUTES OFFICE 11344 FLOMENHOF FLOMENHOF CONSULTAT 1 1 T BASHIR T BASHIR ION NEW/ESTAB PATIENT 60 MIN HOSPITAL UNIVERSIT - 1 1 [facility] T OFFICE 53310 CLAY LOMBARDO OUTPATIEN 1 1 CLINIC AJITH T VISIT PSC 25 MINUTES HOSPITAL RAH - 1 1 [facility] T OFFICE 60242 CLAY OCTAVIOBenedict OUTPATIEN 1 1 CLINIC JOSEFINA T VISIT PSC 25 MINUTES OFFICE 77702 GRAVES GRAVES OUTPATIEN 1 1 LES LES T VISIT 15 MINUTES OFFICE 43407 ADVANCED GRAVES OUTPATIEN 1 1 DERMATOLO LES T VISIT GY 15 MINUTES OFFICE 55912 ADVANCED GRAVES OUTPATIEN 1 1 DERMATOLO LES T VISIT GY 15 MINUTES OFFICE 26894 ADVANCED GRAVES CONSULTAT 1 1 DERMATOLO LES ION GY NEW/ESTAB PATIENT 40 MIN OFFICE 32113 CLAY CUNNINGHAMN OUTPATIEN 1 1 CLINIC JOSEFINA T VISIT PSC 15 MINUTES OFFICE 42825 CLAY LOMBARDO OUTPATIEN 1 1 CLINIC AJITH T VISIT PSC 25 MINUTES OFFICE 38558 [facility] LOMBARDO OUTPATIEN 1 1 CLINIC AJITH T VISIT PSC 15 MINUTES OFFICE 16974 CLAY LOMBARDO OUTPATIEN 1 1 CLINIC AJITH T VISIT PSC 15 MINUTES OFFICE 62802 CLAY LOMBARDO OUTPATIEN 1 1 CLINIC AJITH T VISIT PSC 15 MINUTES EMERGENCY 52562 RAH 1 1 CO [facility] T VISIT MODERATE SEVERITY HOSPITAL RAH - 1 1 [facility] T OFFICE 70198 RAH OUTPATIEN 1 1 CO T VISIT 5 HOSPITAL MINUTES HOSPITAL RAH - 1 1 [facility] T OFFICE 75667 CLAY ADITILESLIE OUTPATIEN 1 1 CLINIC JOSEFINA T VISIT PSC 15 MINUTES OFFICE 26737 [facility] ADITIMAGIN OUTPATIEN 0 0 CLINIC JOSEFINA T VISIT PSC 15 MINUTES EMERGENCY 16751 RAH GONZALEZENZO 0 0 CO [facility] T VISIT MODERATE SEVERITY OFFICE 71148 CLAY TAMAREN OUTPATIEN 0 0 CLINIC JOSEFINA T VISIT PSC 15 MINUTES OFFICE 26298 [facility] TAMAREN OUTPATIEN 0 0 CLINIC JOSEFINA T VISIT PSC 25 MINUTES OFFICE 81519 BRENDA GUTIERREZ OUTPATIEN 0 0 JAROD JAROD T NEW 30 MINUTES OFFICE 57431 [facility] TAMAREN OUTPATIEN 0 0 CLINIC JOSEFINA T VISIT PSC 15 MINUTES OFFICE 07214 [facility] TAMAREN OUTPATIEN 0 0 CLINIC JOSEFINA T VISIT PSC 15 MINUTES OFFICE 34563 [facility] TAMAREN OUTPATIEN 0 0 CLINIC JOSEFINA T VISIT PSC 25 MINUTES OFFICE 57889 [facility] TAMAREN OUTPATIEN 0 0 CLINIC JOSEFINA T VISIT PSC 25 MINUTES HOSPITAL RAH - 0 0 [facility] T OFFICE 47125 CLAY TAMAREN, OUTPATIEN 0 0 CLINIC LANCE T VISIT PSC 25 MINUTES HOSPITAL RAH - 0 0 [facility] T EMERGENCY 27378 RAH 0 0 [facility] T VISIT LIMITED/M INOR PROB OFFICE 42682 C[facility] TAMAREN, OUTPATIEN 0 0 CLINIC LANCE T VISIT PSC 15 MINUTES OFFICE 00239 [facility] TAMAREN, OUTPATIEN 0 0 CLINIC LANCE T VISIT PSC 15 MINUTES OFFICE 01257 [place] SURENDRA, OUTPATIEN 0 0 [facility] SAM[facility]A J T NEW 20 SERV MINUTES [facility] SHANTAL - 0 0 [facility] OUTPATIEN [facility] T EMERGENCY 60670 ADRIENNE LIN, 0 0 [facility] HIGH/URGE ASSOCIATE NT S [facility] RAH - 9 9 [facility] T EMERGENCY 08658 RAH 9 9 [facility] T VISIT LIMITED/M INOR [facility] RAH - 9 9 [facility] T OFFICE 40416 CLAY RODRIGUEZ OUTPATIEN 9 9 CLINIC LANCE T VISIT PSC 10 MINUTES EMERGENCY 59489 RAH 9 9 [facility] T VISIT LIMITED/M INOR [facility] RAH - [address] [facility] RAH - 9 9 [facility] T OFFICE 50695 LAN DAVENPORTPATIEN 9 9 CLINIC LANCE T VISIT PSC 25 MINUTES EMERGENCY 50034 RAH 9 9 [facility] T VISIT LIMITED/M INOR PROB OFFICE 24881 CLAY RODRIGUEZ OUTPATIEN 9 9 CLINIC LANCE T VISIT PSC 25 MINUTES EMERGENCY 67603 RAH 9 9 [facility] T VISIT MODERATE SEVERITY HOSPITAL RAH - 9 9 [facility] T OFFICE 49716 CLAY RODRIGUEZ OUTPATIEN 9 9 CLINIC LANCE T VISIT PSC 15 MINUTES PERIODIC 45492 CLAY RODRIGUEZ PREVENTIV 9 9 CLINIC LANCE E MED EST PSC PATIENT 12-17YRS OFFICE 26012 CLAY RODRIGUEZ OUTPATIEN 9 9 CLINIC LANCE T VISIT PSC 15 MINUTES OFFICE 31289 CLAY RODRIGUEZ OUTPATIEN 9 9 CLINIC LANCE T VISIT PSC 10 MINUTES OFFICE 74522 CLAY RODRIGUEZ OUTPATIEN 8 8 CLINIC LANCE T VISIT PSC 15 MINUTES EMERGENCY 53278 CLAY RODRIGUEZ, 8 8 [facility] T VISIT LOW/MODER SEVERITY HOSPITAL RAH - 8 8 [facility] T EMERGENCY 19072 RAH 8 8 [facility] T VISIT LIMITED/M INOR PROB OFFICE 33092 CLAY RODRIGUEZ OUTPATIEN 8 8 CLINIC LANCE T VISIT PSC 15 MINUTES OFFICE 86471 CLAY RODRIGUEZ OUTPATIEN 8 8 CLINIC LANCE T VISIT PSC 15 MINUTES EMERGENCY 38287 RAH GAN, 8 8 [facility] T VISIT MODERATE SEVERITY HOSPITAL RAH - 8 8 [facility] T OFFICE 95928 [facility] 8 8 , MAIKOL M MAIKOL M T VISIT 10 MINUTES HOSPITAL RAH - 8 8 [facility] T EMERGENCY 82413 RAH 8 8 [facility] T VISIT LIMITED/M INOR PROB OFFICE 65137 CLAY RODRIGUEZ OUTPATIEN 8 8 CLINIC LANCE T VISIT PSC 25 MINUTES EMERGENCY 48370 RAH GAN 8 8 [facility] T VISIT LIMITED/M INOR PROB OFFICE 00536 CLAY RODRIGUEZ OUTPATIEN 8 8 CLINIC LANCE T VISIT PSC 15 MINUTES OFFICE 64047 CLAY RODRIGUEZ OUTPATIEN 8 8 CLINIC LANCE T VISIT PSC 15 MINUTES OFFICE 24930 CLAY RODRIGUEZ [facility] 8 8 CLINIC LANCE T VISIT PSC 25 MINUTES HOSPITAL RAH Dominguez 8 [facility] T OFFICE 90079 CLAY RODRIGUEZ [facility] 8 8 CLINIC LANCE T VISIT PSC 15 MINUTES OFFICE 23177 CLAY RODRIGUEZ [facility] 8 8 CLINIC LANCE T VISIT PSC 15 MINUTES HOSPITAL RAH Dominguez 8 [facility] T EMERGENCY 51430 RAH ELLIS 8 8 CO , [facility] T VISIT LIMITED/M INOR PROB OFFICE 59281 [facility] 8 8 TARAH [place] T VISIT 10 MINUTES HOSPITAL RAH Dominguez 8 CO [facility] T EMERGENCY 58056 RAH 8 8 CO [facility] T VISIT LIMITED/M INOR PROB
--- OUTSIDE RECORDS SUMMARY | 2017-01-02 02:37 | External Medical Summary Rpt | CCD ---
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 7 SO 38 SP Ac 10 -2 -2 50 PE 83 EA ti 20 6- 8- 0 RS 87 R ve [address] 83 11 11 FA EV 5 GA EN LY N DR KAT RI 68 09 10 1 30 30 SO 38 PO Ac SP 38 -2 -2 .0 PE 52 E ti ER 20 6- 6- [address] ve ID 11 20 20 AC ON 31 11 11 FA Y E 4 GA L 0. LY [address] UG TA BL ET RI 68 09 10 1 30 30 SO 38 PO Ac SP 38 -2 -1 .0 PE 52 E ti ER 20 6- 7- [address] ve ID 11 20 20 AC ON 41 11 11 FA Y E 4 GA L [address] TA UG BL ET LI 00 09 10 1 60 30 SO 38 PO Ac TH 05 -2 -1 .0 PE 52 E ti IU 42 6- 7- [address] ve M 52 20 20 AC CA 73 11 11 FA Y RB 1 GA L ON LY AT E DR 30 UG 0 MG CA P MT 37 09 10 2 56 28 SO 38 TA Ac IL 00 -1 -1 .0 PE 39 MA ti OS 00 2- 1- 00 RS 16 RE ve EC 45 20 20 N 50 11 11 FA JA OT 4 GA NE C LY T [address] UG MG TA BL ET 00 09 10 2 28 28 SO 38 TA Ac 43 -1 -1 .0 PE 39 MA ti 00 2- 1- 00 RS 15 RE ve 53 20 20 N 01 11 11 FA JA 4 GA NE LY T DR UG RI 68 09 09 1 30 30 SO 38 PO Ac SP 38 -2 -2 .0 PE 52 E ti ER 20 6- 6- [address] ve ID 11 20 20 AC ON 31 11 11 FA Y E 4 GA L 0. LY [address] UG TA BL ET LI 00 08 09 0 60 30 SO 38 PO Ac TH 05 -2 -1 .0 PE 27 E ti IU 42 9 [address] ve M 52 20 20 AC CA 73 11 11 FA Y RB 1 GA L ON LY AT E DR 30 UG 0 MG CA P RI 68 08 09 0 30 30 SO 38 PO Ac SP 38 -2 -1 .0 PE 27 E ti ER 20 [address] ve ID 11 20 20 AC ON 41 11 11 FA Y E 4 GA L [address] TA UG BL ET 45 09 09 3 14 30 SO 38 GR Ac 80 -1 -1 2. PE 41 AV ti 20 4- 4- RS 71 ES ve 91 20 20 0 30 11 11 FA LE 1 GA SL LY IE W DR UG IM 00 09 09 0 24 30 SO 38 GR Ac IQ 78 -1 -1 .0 PE 41 AV ti UI 17 RS 73 ES ve MO 15 20 20 D 20 11 11 FA LE 5% 9 GA SL LY IE CR W EA DR M UG PA CK ET DI 00 09 09 3 59 30 SO 38 GR Ac FF 29 -1 -1 .0 PE 41 AV ti ER 95 4- 4- 00 RS 74 ES ve IN 91 20 20 20 11 11 FA LE 0. 2 GA SL 1% LY IE W LO DR TI UG ON CL 59 09 09 3 60 30 SO 38 GR Ac IN 76 -1 -1 .0 PE 41 AV ti DA 23 4- 4- RS 75 ES ve MY 74 20 20 CI 40 11 11 FA LE N 1 GA SL PH LY IE OS W P DR 1% UG LO TI ON 00 09 09 2 28 28 SO 38 TA Ac 43 -1 -1 .0 PE 39 MA ti 00 2- 2- 00 RS 15 RE ve 53 20 20 N 01 11 11 FA JA 4 GA NE LY T DR UG MT 37 09 09 2 56 28 SO 38 TA Ac IL 00 -1 -1 .0 PE 39 MA ti OS 00 2- 2- 00 RS 16 RE ve EC 45 20 20 N 50 11 11 FA JA OT 4 GA NE C LY T [address] UG MG TA BL ET 64 09 09 0 30 4 SO 38 TA Ac 45 -1 -1 .0 PE 39 MA ti 50 2- 2- 00 RS 18 RE ve 99 20 20 N 39 11 11 FA JA 5 GA NE LY T DR UG AC 00 09 09 1 20 5 SO 38 TA Ac YC 09 -1 -1 .0 PE 39 MA ti LO 38 2- 2- 00 RS 19 RE ve 94 20 20 N R 30 11 11 FA JA 40 1 GA NE [address] TA UG BL ET MT 00 08 08 0 12 3 SO 38 TA Ac OM 60 -3 -3 0. PE 28 MA ti ET 31 0- 0- 00 RS 79 RE ve MANUEL 58 20 20 0 N ZI 55 11 11 FA JA NE 8 GA NE -C LY T OD EI DR NE UG SY RU P CE 68 08 08 0 [address] Ac FU 18 -3 -3 .0 PE 28 ON ti RO 00 0- 0- 00 RS 74 E ve XI 30 20 20 DI ME 32 11 11 FA XI 0 GA E AX LY D ET IL DR UG 50 0 MG TA B RI 68 08 08 0 30 30 SO 38 PO Ac SP 38 -2 -2 .0 PE 27 E ti ER 20 9- 9- [address] ve ID 11 20 20 AC ON 31 11 11 FA Y E 4 GA L 0. LY [address] UG TA BL ET 00 08 08 0 12 3 SO 38 TA Ac 12 -2 -2 0. PE 25 MA ti 10 6- 6- 00 RS 50 RE ve 63 20 20 0 N 81 11 11 FA JA 6 GA NE LY T DR UG 52 08 08 0 12 30 SO 38 TA Ac 15 -2 -2 .0 PE 25 MA ti 20 6- 6- 00 RS 55 RE ve 53 20 20 N 93 11 11 FA JA 0 GA NE LY T DR UG RI 68 08 08 0 30 30 SO 38 PO Ac SP 38 -0 -1 .0 PE 00 E ti ER 20 1- 8- [address] ve ID 11 20 20 AC ON 41 11 11 FA Y E 4 GA L [address] TA UG BL ET LI 00 08 08 0 60 30 SO 38 PO Ac TH 05 -0 -1 .0 PE 00 E ti IU 42 1- 8- [address] ve M 52 20 20 AC CA 73 11 11 FA Y RB 1 GA L ON LY AT E DR 30 UG 0 MG CA P TR 45 08 08 0 30 5 SO 38 TA Ac IA 80 -1 -1 .0 PE 12 MA ti MC 20 5- 5- 00 RS 51 RE ve IN 04 20 20 N OL 93 11 11 FA JA ON 5 GA NE E LY T 0. 5% DR KAT OI NT ME NT 00 06 08 2 [address] Ac 43 -0 -1 .0 PE 51 ON ti 00 2 RS 78 E ve 53 20 20 DI 01 11 11 FA XI 4 GA E LY D DR UG RI 00 08 08 0 30 30 SO 38 PO Ac SP 09 -0 -0 .0 PE 00 E ti ER 30 - [address] ve ID 22 20 20 AC ON 50 11 11 FA Y E 6 GA L 0. LY [address] KAT TA BL ET MT 37 05 07 2 [address] Ac IL 00 -0 -2 .0 PE 29 ON ti OS 00 6- RS 44 E ve EC 45 20 20 DI 50 11 11 FA XI OT 4 GA E C LY D [address] KAT MG TA BL ET RI 68 07 07 0 30 30 SO 37 PO Ac SP 38 -1 -1 .0 PE 89 E ti ER 20 [address] ve ID 11 20 20 AC ON 41 11 11 FA Y E 4 GA L 1 LY MG TA UG BL ET LI 00 07 07 0 60 30 SO 37 PO Ac TH 05 -1 -1 .0 PE 89 E ti IU 42 [address] ve M 52 20 20 AC CA 73 11 11 FA Y RB 1 GA L ON LY AT E DR 30 UG 0 MG CA P LI 60 07 07 1 [address] Ac ND 43 -1 -1 .0 PE 87 ON ti AN 20 5 RS 81 E ve E 83 20 20 DI 1% 46 11 11 FA XI 0 GA E SH LY D AM PO DR O UG 00 06 07 2 [address] Ac 43 -0 -0 .0 PE 51 ON ti 00 RS 78 E ve 53 20 20 DI 01 11 11 FA XI 4 GA E LY D DR UG TR 50 05 06 2 [address] Ac AZ 11 -0 -2 .0 PE 29 ON ti OD 10 6- 00 RS 46 E ve ON 43 20 20 DI E 30 11 11 FA XI 50 3 GA E LY D MG TA UG BL ET CO 50 06 06 0 30 30 SO 37 TA Ac NC 45 -2 -2 .0 PE 67 MA ti ER 80 1 00 RS 33 RE ve TA 58 20 20 N 70 11 11 FA JA ER 1 GA NE LY T 54 DR MG UG TA BL ET TR 45 06 06 1 30 5 SO 37 TA Ac IA 80 -2 -2 .0 PE 67 MA ti MC 20 RS 36 RE ve IN 06 20 20 N OL 53 11 11 FA JA ON 5 GA NE E LY T 0. 5% DR KAT CR EA M CI 13 05 06 2 30 30 SO 37 TA Ac TA 66 -0 -1 .0 PE 29 MA ti LO 80 6- 6- 00 RS 40 RE ve MT 01 20 20 N AM 10 11 11 FA JA 5 GA NE HB LY T R 40 DR UG MG TA BL ET 00 10 06 2 60 30 SO 35 TA Ac AN 37 -0 -1 .0 PE 39 MA ti FA 81 6- 6 00 RS 53 RE ve CI 16 20 20 N NE 00 10 11 FA JA 1 1 GA NE LY T MG DR TA UG BL ET 00 05 06 2 [address] Ac 00 -0 -1 .0 PE 29 ON ti 60 6- 6 00 RS 42 E ve 11 20 20 DI 73 11 11 FA XI 1 GA E LY D DR KAT MT 37 05 06 2 [address] Ac IL 00 -0 -1 .0 PE 29 ON ti OS 00 6- 6- 00 RS 44 E ve EC 45 20 20 DI 50 11 11 FA XI OT 4 GA E C LY D [address] UG MG TA BL ET 00 06 06 2 [address] Ac 43 -0 -0 .0 PE 51 ON ti 00 2- 2 00 RS 78 E ve 53 20 20 DI 01 11 11 FA XI 4 GA E LY D DR UG TR 50 05 05 2 [address] Ac AZ 11 -0 -3 .0 PE 29 ON ti OD 10 6 00 RS 46 E ve ON 43 20 20 DI E 30 11 11 FA XI 50 3 GA E LY D MG DR TA UG BL ET 00 05 05 2 [address] Ac 00 -0 -1 .0 PE 29 ON ti 60 6- 2- 00 RS 42 E ve 11 20 20 DI 73 11 11 FA XI 1 GA E LY D DR UG MT 37 05 05 2 [address] Ac IL 00 -0 -1 .0 PE 29 ON ti OS 00 6- 2- 00 RS 44 E ve EC 45 20 20 DI 50 11 11 FA XI OT 4 GA E C LY D [address] UG MG TA BL ET 00 10 05 2 60 30 SO 35 TA Ac AN 37 -0 -1 .0 PE 39 MA ti FA 81 6- 2- 00 RS 53 RE ve CI 16 20 20 N NE 00 10 11 FA JA 1 1 GA NE LY T MG DR TA UG BL ET CI 13 05 05 2 30 30 SO 37 TA Ac TA 66 -0 -1 .0 PE 29 MA ti LO 80 6- 2- 00 RS 40 RE ve MT 01 20 20 N AM 10 11 11 FA JA 5 GA NE HB LY T R 40 DR UG MG TA BL ET 59 02 05 2 17 30 SO 36 TA Ac 31 -1 -0 .0 PE 49 MA ti 00 0- 6- 00 RS 60 RE ve 57 20 20 N 92 11 11 FA JA 0 GA NE LY T DR UG 00 02 05 2 30 30 SO 36 TA Ac 06 -1 -0 .0 PE 49 MA ti 76 0- 6- 00 RS 63 RE ve 07 20 20 N 03 11 11 FA JA 0 GA NE LY T DR UG CO 50 05 05 0 30 30 SO 37 TA Ac NC 45 -0 -0 .0 PE 29 MA ti ER 80 6- 6- 00 RS 41 RE ve TA 58 20 20 N 70 11 11 FA JA ER 1 GA NE LY T 54 DR MG UG TA BL ET TR 50 02 04 2 30 30 SO 36 TA Ac AZ 11 -1 -2 .0 PE 49 MA ti OD 10 0- 9- 00 RS 61 RE ve ON 43 20 20 N E 30 11 11 FA JA 50 3 GA NE LY T MG DR TA UG BL ET 00 02 04 2 30 30 SO 36 TA Ac 00 -1 -1 .0 PE 49 MA ti 60 0- 1- 00 RS 58 RE ve 11 20 20 N 73 11 11 FA JA 1 GA NE LY T DR UG MT 37 02 04 2 56 28 SO 36 TA Ac IL 00 -1 -1 .0 PE 49 MA ti OS 00 0- 1- 00 RS 59 RE ve EC 45 20 20 N 50 11 11 FA JA OT 4 GA NE C LY T [address] UG MG TA BL ET 00 02 04 2 60 30 SO 36 TA Ac AN 37 -1 -1 .0 PE 49 MA ti FA 81 0- 1- 00 RS 62 RE ve CI 16 20 20 N NE 00 11 11 FA JA 1 1 GA NE LY T MG DR TA UG BL ET CI 13 02 04 2 30 30 SO 36 TA Ac TA 66 -1 -1 .0 PE 49 MA ti LO 80 0- 1- 00 RS 64 RE ve MT 01 20 20 N AM 10 11 11 FA JA 5 GA NE HB LY T R 40 DR UG MG TA BL ET CO 50 04 04 0 30 30 SO 37 TA Ac NC 45 -0 -0 .0 PE 03 MA ti ER 80 7- 7- 00 RS 48 RE ve TA 58 20 20 N 70 11 11 FA JA ER 1 GA NE LY T 54 DR MG UG TA BL ET 00 11 04 5 [address] Ac 43 -0 -0 .0 PE 65 ON ti 00 3- 7 RS 00 E ve 53 20 20 DI 01 10 11 FA XI 4 GA E LY D DR UG TR 50 02 03 2 30 30 SO 36 TA Ac AZ 11 -1 -2 .0 PE 49 MA ti OD 10 0- 9- 00 RS 61 RE ve ON 43 20 20 N E 30 11 11 FA JA 50 3 GA NE LY T MG DR TA UG BL ET MT 68 03 03 0 20 7 SO 36 TA Ac OM 38 -1 -1 .0 PE 78 MA ti ET 20 0- 0- 00 RS 29 RE ve MANUEL 04 20 20 N ZI 11 11 11 FA JA NE 0 GA NE LY T 25 DR MG UG TA BL ET CO 50 03 03 0 30 30 SO 36 TA Ac NC 45 -1 -1 .0 PE 78 MA ti ER 80 0- 0- 00 RS 30 RE ve TA 58 20 20 N 70 11 11 FA JA ER 1 GA NE LY T 54 DR MG UG TA BL ET 00 02 03 2 30 30 SO 36 TA Ac 00 -1 -0 .0 PE 49 MA ti 60 0- 9- 00 RS 58 RE ve 11 20 20 N 73 11 11 FA JA 1 GA NE LY T DR UG MT 37 02 03 2 56 28 SO 36 TA Ac IL 00 -1 -0 .0 PE 49 MA ti OS 00 0- 9- 00 RS 59 RE ve EC 45 20 20 N 50 11 11 FA JA OT 4 GA NE C LY T [address] UG MG TA BL ET 00 02 03 2 60 30 SO 36 TA Ac AN 37 -1 -0 .0 PE 49 MA ti FA 81 0- 9- 00 RS 62 RE ve CI 16 20 20 N NE 00 11 11 FA JA 1 1 GA NE LY T MG DR TA UG BL ET CI 13 02 03 2 30 30 SO 36 TA Ac TA 66 -1 -0 .0 PE 49 MA ti LO 80 0- 9- 00 RS 64 RE ve MT 01 20 20 N AM 10 11 11 FA JA 5 GA NE HB LY T R 40 DR UG MG TA BL ET 00 11 03 5 [address] Ac 43 -0 -0 .0 PE 65 ON ti 00 3- 7- 00 RS 00 E ve 53 20 20 DI 01 10 11 FA XI 4 GA E LY D DR UG TR 50 02 02 2 30 30 SO 36 TA Ac AZ 11 -1 -2 .0 PE 49 MA ti OD 10 0- 3- 00 RS 61 RE ve ON 43 20 20 N E 30 11 11 FA JA 50 3 GA NE LY T MG DR TA UG BL ET 59 02 02 2 17 30 SO 36 TA Ac 31 -1 -1 .0 PE 49 MA ti 00 0- 0- 00 RS 60 RE ve 57 20 20 N 92 11 11 FA JA 0 GA NE LY T DR UG 00 02 02 2 60 30 SO 36 TA Ac AN 37 -1 -1 .0 PE 49 MA ti FA 81 0- 0- 00 RS 62 RE ve CI 16 20 20 N NE 00 11 11 FA JA 1 1 GA NE LY T MG DR TA UG BL ET 00 02 02 2 30 30 SO 36 TA Ac 06 -1 -1 .0 PE 49 MA ti 76 0- 0- 00 RS 63 RE ve 07 20 20 N 03 11 11 FA JA 0 GA NE LY T DR UG CI 13 02 02 2 30 30 SO 36 TA Ac TA 66 -1 -1 .0 PE 49 MA ti LO 80 0- 0- 00 RS 64 RE ve MT 01 20 20 N AM 10 11 11 FA JA 5 GA NE HB LY T R 40 DR UG MG TA BL ET CO 50 02 02 0 30 30 SO 36 TA Ac NC 45 -1 -1 .0 PE 49 MA ti ER 80 0- 0- 00 RS 57 RE ve TA 58 20 20 N 70 11 11 FA JA ER 1 GA NE LY T 54 DR MG UG TA BL ET 00 02 02 2 30 30 SO 36 TA Ac 00 -1 -1 .0 PE 49 MA ti 60 0- 0- 00 RS 58 RE ve 11 20 20 N 73 11 11 FA JA 1 GA NE LY T DR UG MT 37 02 02 2 56 28 SO 36 TA Ac IL 00 -1 -1 .0 PE 49 MA ti OS 00 0- 0- 00 RS 59 RE ve EC 45 20 20 N 50 11 11 FA JA OT 4 GA NE C LY T [address] UG MG TA BL ET 00 11 02 5 [address] Ac 43 -0 -0 .0 PE 65 ON ti 00 3- 7- 00 RS 00 E ve 53 20 20 DI 01 10 11 FA XI 4 GA E LY D DR UG AZ 00 01 01 0 6. 5 SO 36 TA Ac IT 78 -2 -2 00 PE 33 MA ti HR 11 4- 4- 0 RS 04 RE ve OM 49 20 20 N YC 66 11 11 FA JA IN 8 GA NE LY T [address] MG UG TA BL ET ME 51 01 01 0 21 6 SO 36 TA Ac TH 99 -2 -2 .0 PE 33 MA ti YL 10 4- 4- 00 RS 05 RE ve MT 18 20 20 N ED 83 11 11 FA JA NI 1 GA NE SO LY T LO NE DR 4 UG MG DO SE PK 60 01 01 0 24 6 SO 36 TA Ac 25 -2 -2 0. PE 33 MA ti 80 4- 4- 00 RS 06 RE ve 23 20 20 0 N 91 11 11 FA JA 6 GA NE LY T DR UG TR 50 11 01 2 30 30 SO 35 TA Ac AZ 11 -1 -2 .0 PE 74 MA ti OD 10 1- 4- 00 RS 13 RE ve ON 43 20 20 N E 30 10 11 FA JA 50 3 GA NE LY T MG DR TA UG BL ET MT 37 11 01 2 56 28 SO 35 TA Ac IL 00 -0 -1 .0 PE 68 MA ti OS 00 8- 2- 00 RS 93 RE ve EC 45 20 20 N 50 10 11 FA JA OT 4 GA NE C LY T [address] UG MG TA BL ET 00 11 01 2 30 30 SO 35 TA Ac 00 -0 -1 .0 PE 68 MA ti 60 8- 2- 00 RS 94 RE ve 11 20 20 N 73 10 11 FA JA 1 GA NE LY T DR UG 00 11 01 2 60 30 SO 35 TA Ac AN 37 -0 -1 .0 PE 68 MA ti FA 81 8- 2- 00 RS 95 RE ve CI 16 20 20 N NE 00 10 11 FA JA 1 1 GA NE LY T MG DR TA UG BL ET CI 13 11 01 2 30 30 SO 35 TA Ac TA 66 -0 -1 .0 PE 68 MA ti LO 80 8- 2- 00 RS 96 RE ve MT 01 20 20 N AM 10 10 11 FA JA 5 GA NE HB LY T R 40 DR UG MG TA BL ET CO 50 01 01 0 30 30 SO 36 TA Ac NC 45 -1 -1 .0 PE 22 MA ti ER 80 0- 0- 00 RS 05 RE ve TA 58 20 20 N 70 11 11 FA JA ER 1 GA NE LY T 54 DR MG UG TA BL ET NY 45 01 01 0 30 10 SO [address] 80 -0 -0 .0 PE 17 MA ti AT 20 4- 4- 00 RS 22 RE ve IN 04 20 20 N 81 11 11 FA JA 10 1 GA NE 0, LY T [address] UN UG IT S/ GM OI NT HY 00 01 01 0 30 10 SO [address] 16 -0 -0 .0 PE 17 MA ti OC 80 4- 4- 00 RS 23 RE ve OR 08 20 20 N TI 03 11 11 FA JA SO 1 GA NE NE LY T 2. DR 5% UG CR EA M 00 11 01 5 [address] Ac 43 -0 -0 .0 PE 65 ON ti 00 3- 3- 00 RS 00 E ve 53 20 20 DI 01 10 11 FA XI 4 GA E LY D DR UG TR 50 11 12 2 30 30 SO 35 TA Ac AZ 11 -1 -2 .0 PE 74 MA ti OD 10 1- 0- 00 RS 13 RE ve ON 43 20 20 N E 30 10 10 FA JA 50 3 GA NE LY T MG DR TA UG BL ET CO 50 12 12 0 30 30 SO 35 TA Ac NC 45 -1 -1 .0 PE 99 MA ti ER 80 0- 0- 00 RS 43 RE ve TA 58 20 20 N 70 10 10 FA JA ER 1 GA NE LY T 54 DR MG UG TA BL ET 00 11 12 2 60 30 SO 35 TA Ac AN 37 -0 -0 .0 PE 68 MA ti FA 81 8- 8- 00 RS 95 RE ve CI 16 20 20 N NE 00 10 10 FA JA 1 1 GA NE LY T MG DR TA UG BL ET CI 13 11 12 2 30 30 SO 35 TA Ac TA 66 -0 -0 .0 PE 68 MA ti LO 80 8- 8- 00 RS 96 RE ve MT 01 20 20 N AM 10 10 10 FA JA 5 GA NE HB LY T R 40 DR UG MG TA BL ET MT 37 11 12 2 56 28 SO 35 TA Ac IL 00 -0 -0 .0 PE 68 MA ti OS 00 8 8 RS 93 RE ve EC 45 20 20 N 50 10 10 FA JA OT 4 GA NE C LY T [address] UG MG TA BL ET 00 11 12 2 30 30 SO 35 TA Ac 00 -0 -0 .0 PE 68 MA ti 60 8 8 00 RS 94 RE ve 11 20 20 N 73 10 10 FA JA 1 GA NE LY T DR UG 00 11 12 5 [address] Ac 43 -0 -0 .0 PE 65 ON ti 00 3 2 RS 00 E ve 53 20 20 DI 01 10 10 FA XI 4 GA E LY D DR UG ON 00 11 11 0 6. 30 SO 35 TA Ac DA 78 -1 -1 00 PE 80 MA ti NS 11 8- 8- 0 RS 42 RE ve ET 68 20 20 N RO 13 10 10 FA JA N 1 GA NE HC LY T L 8 DR MG UG TA BL ET TR 50 11 11 2 30 30 SO 35 TA Ac AZ 11 -1 -1 .0 PE 74 MA ti OD 10 03-22- 00 RS 13 RE ve ON 43 20 20 N E 30 10 10 FA JA 50 3 GA NE LY T MG DR TA UG BL ET 64 11 11 2 60 30 SO 35 TA Ac 98 -0 -0 .0 PE 68 MA ti 00 8 8 RS 98 RE ve 12 20 20 N 30 10 10 FA JA 1 GA NE LY T DR UG CO 50 11 11 0 30 30 SO 35 TA Ac NC 45 -0 -0 .0 PE 68 MA ti ER 80 8 8 RS 99 RE ve TA 58 20 20 N 70 10 10 FA JA ER 1 GA NE LY T 54 DR MG UG TA BL ET 59 11 11 2 17 30 SO 35 TA Ac 31 -0 -0 .0 PE 68 MA ti 00 8 RS 92 RE ve 57 20 20 N 92 10 10 FA JA 0 GA NE LY T DR UG MT 37 11 11 2 56 28 SO 35 TA Ac IL 00 -0 -0 .0 PE 68 MA ti OS 00 RS 93 RE ve EC 45 20 20 N 50 10 10 FA JA OT 4 GA NE C LY T [address] UG MG TA BL ET 00 11 11 2 30 30 SO 35 TA Ac 00 -0 -0 .0 PE 68 MA ti 60 8- 8- 00 RS 94 RE ve 11 20 20 N 73 10 10 FA JA 1 GA NE LY T DR UG 00 11 11 2 60 30 SO 35 TA Ac AN 37 -0 -0 .0 PE 68 MA ti FA 81 8- 8- 00 RS 95 RE ve CI 16 20 20 N NE 00 10 10 FA JA 1 1 GA NE LY T MG DR TA UG BL ET CI 13 11 11 2 30 30 SO 35 TA Ac TA 66 -0 -0 .0 PE 68 MA ti LO 80 8- 8- 00 RS 96 RE ve MT 01 20 20 N AM 10 10 10 FA JA 5 GA NE HB LY T R 40 DR UG MG TA BL ET 00 11 11 2 30 30 SO 35 TA Ac 06 -0 -0 .0 PE 68 MA ti 76 8- 8- 00 RS 97 RE ve 07 20 20 N 03 10 10 FA JA 0 GA NE LY T DR UG BE 68 11 11 0 [address] Ac NZ 38 -0 -0 .0 PE 64 ON ti ON 20 3- 3- 00 RS 98 E ve AT 24 20 20 DI AT 80 10 10 FA XI E 1 GA E 20 L[address] UG CA PS UL E CE 68 11 11 0 [address] Ac FU 18 -0 -0 .0 PE 64 ON ti RO 00 3- 3- 00 RS 99 E ve XI 30 20 20 DI ME 26 10 10 FA XI 0 GA E AX LY D ET IL DR UG 25 0 MG TA B 00 11 11 5 [address] Ac 43 -0 -0 .0 PE 65 ON ti 00 3- 3- 00 RS 00 E ve 53 20 20 DI 01 10 10 FA XI 4 GA E LY D DR UG TR 51 11 11 0 5. [address] Ac IA 67 -0 -0 00 PE 65 ON ti MC 21 3- 3- 0 RS 01 E ve IN 26 20 20 DI OL 70 10 10 FA XI ON 5 GA E E LY D 0. 1% DR STEPHENS PA ST E 64 11 11 0 [address] Ac 37 -0 -0 .0 PE 65 ON ti 60 3- 3- 00 RS 02 E ve 54 20 20 DI 40 10 10 FA XI 1 GA E LY D DR KAT TR 50 08 10 2 30 30 SO 34 TA Ac AZ 11 -1 -1 .0 PE 91 MA ti OD 10 0- 3- 00 RS 58 RE ve ON 43 20 20 N E 30 10 10 FA JA 50 3 GA NE LY T MG DR TA UG BL ET 00 10 10 0 10 7 SO 35 TA Ac 90 -1 -1 .0 PE 45 MA ti 40 2- 2- 00 RS 33 RE ve 79 20 20 N 31 10 10 FA JA 0 GA NE LY T DR UG 00 07 10 2 30 30 SO 34 TA Ac 06 -2 -0 .0 PE 78 MA ti 76 6- 6- 00 RS 81 RE ve 07 20 20 N 03 10 10 FA JA 0 GA NE LY T DR UG MT 00 10 10 0 15 5 SO 35 TA Ac ED 59 -0 -0 .0 PE 39 MA ti NI 15 6- 6- 00 RS 44 RE ve SO 44 20 20 N NE 20 10 10 FA JA 5 GA NE [address] UG TA BL ET CO 50 10 10 0 30 30 SO 35 TA Ac NC 45 -0 -0 .0 PE 39 MA ti ER 80 6- 6- 00 RS 45 RE ve TA 58 20 20 N 70 10 10 FA JA ER 1 GA NE LY T 54 DR MG UG TA BL ET DI 00 10 10 0 20 5 SO 35 TA Ac PH 37 -0 -0 .0 PE 39 MA ti EN 80 6- 6- 00 RS 46 RE ve OX 41 20 20 N YL 51 10 10 FA JA AT 0 GA NE E- LY T AT RO DR P UG 2. 5- 0. 02 5 BE 68 10 10 0 30 10 SO 35 TA Ac NZ 38 -0 -0 .0 PE 39 MA ti ON 20 6- 6- 00 RS 47 RE ve AT 24 20 20 N AT 80 10 10 FA JA E 1 GA NE [address] L[address] UG CA PS UL E 60 10 10 0 24 6 SO 35 TA Ac 25 -0 -0 0. PE 39 MA ti 80 6- 6- 00 RS 48 RE ve 23 20 20 0 N 91 10 10 FA JA 6 GA NE LY T DR UG CE 68 10 10 0 20 10 SO 35 TA Ac FP 18 -0 -0 .0 PE 39 MA ti RO 00 6- 6- 00 RS 49 RE ve ZI 40 20 20 N L 30 10 10 FA JA 25 1 GA NE [address] TA UG BL ET 00 07 10 2 60 30 SO 34 TA Ac AN 37 -2 -0 .0 PE 78 MA ti FA 81 6- 5- 00 RS 79 RE ve CI 16 20 20 N NE 00 10 10 FA JA 1 1 GA NE LY T MG DR TA UG BL ET CI 13 07 10 2 30 30 SO 34 TA Ac TA 66 -2 -0 .0 PE 78 MA ti LO 80 6- 5- 00 RS 80 RE ve MT 01 20 20 N AM 10 10 10 FA JA 5 GA NE HB LY T R 40 DR UG MG TA BL ET MT 37 07 10 2 28 28 SO 34 TA Ac IL 00 -2 -0 .0 PE 78 MA ti OS 00 6 5 00 RS 82 RE ve EC 45 20 20 N 50 10 10 FA JA OT 4 GA NE C LY T [address] UG MG TA BL ET 00 07 10 2 30 30 SO 34 TA Ac 00 -2 -0 .0 PE 78 MA ti 60 6- 5- 00 RS 78 RE ve 11 20 20 N 73 10 10 FA JA 1 GA NE LY T DR UG TR 50 08 09 2 30 30 SO 34 TA Ac AZ 11 -1 -1 .0 PE 91 MA ti OD 10 0- 0- 00 RS 58 RE ve ON 43 20 20 N E 30 10 10 FA JA 50 3 GA NE LY T MG DR TA UG BL ET CE 68 09 09 0 10 5 SO 35 TA Ac FD 18 -0 -0 .0 PE 10 MA ti IN 00 2- 2 00 RS 93 RE ve IR 71 20 20 N 16 10 10 FA JA 30 0 GA NE [address] CA UG PS UL E 00 09 09 0 21 6 SO 35 TA Ac 55 -0 -0 .0 PE 10 MA ti 50 2- 2- 00 RS 94 RE ve 30 20 20 N 13 10 10 FA JA 8 GA NE LY T DR UG 60 09 09 0 18 9 SO 35 TA Ac 25 -0 -0 0. PE 10 MA ti 80 2- 2- 00 RS 95 RE ve 23 20 20 0 N 91 10 10 FA JA 6 GA NE LY T DR UG MT 37 07 08 2 28 28 SO 34 TA Ac IL 00 -2 -2 .0 PE 78 MA ti OS 00 6- 7 00 RS 82 RE ve EC 45 20 20 N 50 10 10 FA JA OT 4 GA NE C LY T [address] UG MG TA BL ET 00 07 08 2 30 30 SO 34 TA Ac 00 -2 -2 .0 PE 78 MA ti 60 6- 6- 00 RS 78 RE ve 11 20 20 N 73 10 10 FA JA 1 GA NE LY T DR UG 00 07 08 2 60 30 SO 34 TA Ac AN 37 -2 -2 .0 PE 78 MA ti FA 81 6- 6- 00 RS 79 RE ve CI 16 20 20 N NE 00 10 10 FA JA 1 1 GA NE LY T MG DR TA UG BL ET CI 13 07 08 2 30 30 SO 34 TA Ac TA 66 -2 -2 .0 PE 78 MA ti LO 80 6- 6- 00 RS 80 RE ve MT 01 20 20 N AM 10 10 10 FA JA 5 GA NE HB LY T R 40 DR UG MG TA BL ET CO 50 08 08 0 30 30 SO 35 TA Ac NC 45 -2 -2 .0 PE 03 MA ti ER 80 5- 5- 00 RS 59 RE ve TA 58 20 20 N 70 10 10 FA JA ER 1 GA NE LY T 54 DR MG UG TA BL ET 64 08 08 0 20 10 SO 34 TA Ac 37 -1 -1 .0 PE 91 MA ti 60 0- 0- 00 RS 56 RE ve 54 20 20 N 40 10 10 FA JA 1 GA NE LY T DR UG BE 68 08 08 0 30 10 SO 34 TA Ac NZ 38 -1 -1 .0 PE 91 MA ti ON 20 0- 0- 00 RS 57 RE ve AT 24 20 20 N AT 80 10 10 FA JA E 1 GA NE 20 LY [address] UG CA PS UL E TR 50 08 08 2 30 30 SO 34 TA Ac AZ 11 -1 -1 .0 PE 91 MA ti OD 10 0- 0- 00 RS 58 RE ve ON 43 20 20 N E 30 10 10 FA JA 50 3 GA NE LY T MG DR TA UG BL ET CE 68 08 08 0 14 7 SO 34 TA Ac FP 18 -1 -1 .0 PE 91 MA ti RO 00 0- 0- 00 RS 59 RE ve ZI 40 20 20 N L 40 10 10 FA JA 50 1 GA NE [address] TA UG BL ET 59 08 08 2 1. 90 SO 34 TA Ac 76 -0 -0 00 PE 90 MA ti 24 9- 9- 0 RS 26 RE ve 53 20 20 N 80 10 10 FA JA 1 GA NE LY T DR UG 00 07 07 2 30 30 SO 34 TA Ac 00 -2 -2 .0 PE 78 MA ti 60 6- 6- 00 RS 78 RE ve 11 20 20 N 73 10 10 FA JA 1 GA NE LY T DR UG 00 07 07 2 60 30 SO 34 TA Ac AN 37 -2 -2 .0 PE 78 MA ti FA 81 6- 6- 00 RS 79 RE ve CI 16 20 20 N NE 00 10 10 FA JA 1 1 GA NE LY T MG DR TA UG BL ET CI 13 07 07 2 30 30 SO 34 TA Ac TA 66 -2 -2 .0 PE 78 MA ti LO 80 6- 6- 00 RS 80 RE ve MT 01 20 20 N AM 10 10 10 FA JA 5 GA NE HB LY T R 40 DR UG MG TA BL ET 00 07 07 2 30 30 SO 34 TA Ac 06 -2 -2 .0 PE 78 MA ti 76 6- 6- 00 RS 81 RE ve 07 20 20 N 03 10 10 FA JA 0 GA NE LY T DR UG MT 37 07 07 2 28 28 SO 34 TA Ac IL 00 -2 -2 .0 PE 78 MA ti OS 00 6- 6- 00 RS 82 RE ve EC 45 20 20 N 50 10 10 FA JA OT 4 GA NE C LY T [address] UG MG TA BL ET CO 50 07 07 0 30 30 SO 34 TA Ac NC 45 -2 -2 .0 PE 79 MA ti ER 80 6- 6- 00 RS 02 RE ve TA 58 20 20 N 70 10 10 FA JA ER 1 GA NE LY T 54 DR MG UG TA BL ET 64 05 07 1 60 30 SO 34 TA Ac 98 -2 -0 .0 PE 37 MA ti 00 6- 1- 00 RS 31 RE ve 12 20 20 N 30 10 10 FA JA 1 GA NE LY T DR UG AN 24 12 06 1 23 3 SO 33 TA Ac TI 38 -2 -2 .6 PE 17 MA ti -D 50 8- 9- 00 RS 72 RE ve IA 55 20 20 N RR 45 09 10 FA JA HE 3 GA NE AL LY T 2 DR MG UG CA PL ET MT 37 06 06 2 28 28 SO 34 TA Ac IL 00 -1 -1 .0 PE 47 MA ti OS 00 0- 0- 00 RS 87 RE ve EC 45 20 20 N 50 10 10 FA JA OT 4 GA NE C LY T [address] UG MG TA BL ET CO 50 06 06 0 30 30 SO 34 TA Ac NC 45 -1 -1 .0 PE 47 MA ti ER 80 0- 0- 00 RS 89 RE ve TA 58 20 20 N 70 10 10 FA JA ER 1 GA NE LY T 54 DR MG UG TA BL ET MT 68 06 06 0 20 7 SO 34 TA Ac OM 38 -1 -1 .0 PE 47 MA ti ET 20 0- 0- 00 RS 90 RE ve MANUEL 04 20 20 N ZI 11 10 10 FA JA NE 0 GA NE LY T 25 DR MG UG TA BL ET CI 13 05 06 2 30 30 SO 34 TA Ac TA 66 -0 -0 .0 PE 21 MA ti LO 80 5- 7- 00 RS 14 RE ve MT 01 20 20 N AM 10 10 10 FA JA 5 GA NE HB LY T R 40 DR UG MG TA BL ET 64 05 05 1 60 30 SO 34 TA Ac 98 -2 -2 .0 PE 37 MA ti 00 6- 6- 00 RS 31 RE ve 12 20 20 N 30 10 10 FA JA 1 GA NE LY T DR UG 00 03 05 2 30 30 SO 33 TA Ac 00 -0 -2 .0 PE 71 MA ti 60 8- 4- 00 RS 74 RE ve 11 20 20 N 73 10 10 FA JA 1 GA NE LY T DR UG 00 03 05 2 60 30 SO 33 TA Ac AN 37 -0 -2 .0 PE 71 MA ti FA 81 8- 4- 00 RS 77 RE ve CI 16 20 20 N NE 00 10 10 FA JA 1 1 GA NE LY T MG DR TA UG BL ET 59 05 05 0 1. 90 SO 34 TA Ac 76 -2 -2 00 PE 36 MA ti 24 4- 4- 0 RS 01 RE ve 53 20 20 N 80 10 10 FA JA 1 GA NE LY T DR UG RA 53 12 05 2 60 30 SO 32 TA Ac NI 74 -0 -1 .0 PE 95 MA ti TI 60 1- 4- 00 RS 19 RE ve DI 25 20 20 N NE 30 09 10 FA JA 5 GA NE 15 LY T [address] UG TA BL ET 64 05 05 0 15 10 SO 34 TA Ac 45 -0 -0 .0 PE 21 MA ti 50 5- 5- 00 RS 11 RE ve 99 20 20 N 39 10 10 FA JA 4 GA NE LY T DR UG BYRD 00 05 05 0 10 5 SO 34 TA Ac LF 60 -0 -0 .0 PE 21 MA ti AM 35 5- 5- 00 RS 12 RE ve ET 78 20 20 N HO 12 10 10 FA JA XA 8 GA NE ZO LY T LE -T DR MP UG DS TA BL ET CO 50 05 05 0 30 30 SO 34 TA Ac NC 45 -0 -0 .0 PE 21 MA ti ER 80 5- 5- 00 RS 13 RE ve TA 58 20 20 N 70 10 10 FA JA ER 1 GA NE LY T 54 DR MG UG TA BL ET CI 13 05 05 2 30 30 SO 34 TA Ac TA 66 -0 -0 .0 PE 21 MA ti LO 80 5- 5- 00 RS 14 RE ve MT 01 20 20 N AM 10 10 10 FA JA 5 GA NE HB LY T R 40 DR UG MG TA BL ET 00 03 04 2 30 30 SO 33 TA Ac 00 -0 -2 .0 PE 71 MA ti 60 8- 2- 00 RS 74 RE ve 11 20 20 N 73 10 10 FA JA 1 GA NE LY T DR UG 00 03 04 2 60 30 SO 33 TA Ac AN 37 -0 -2 .0 PE 71 MA ti FA 81 8- 2- 00 RS 77 RE ve CI 16 20 20 N NE 00 10 10 FA JA 1 1 GA NE LY T MG DR TA UG BL ET 00 04 04 1 30 30 SO 34 TA Ac 06 -1 -1 .0 PE 01 MA ti 76 2- 2- 00 RS 13 RE ve 07 20 20 N 03 10 10 FA JA 0 GA NE LY T DR UG CI 13 04 04 0 15 30 SO 34 TA Ac TA 66 -1 -1 .0 PE 01 MA ti LO 80 2- 2- 00 RS 14 RE ve MT 01 20 20 N AM 00 10 10 FA JA 5 GA NE HB LY T R 20 DR UG MG TA BL ET CO 50 04 04 0 60 30 SO 34 TA Ac NC 45 -1 -1 .0 PE 01 MA ti ER 80 2- 2- 00 RS 16 RE ve TA 58 20 20 N 60 10 10 FA JA ER 1 GA NE LY T 36 DR MG UG TA BL ET MT 10 03 03 0 [address] Ac OM 70 -2 -2 .0 PE 89 ON ti ET 20 6- 6- 00 RS 35 E ve MANUEL 00 20 20 DI ZI 31 10 10 FA XI NE 0 GA E LY D 25 DR MG UG TA BL ET 60 03 03 0 [address] Ac 25 -2 -2 0. PE 89 ON ti 80 6- 6- 00 RS 36 E ve 23 20 20 0 DI 91 10 10 FA XI 6 GA E LY D DR UG MT 37 12 03 2 28 28 SO 33 TA Ac IL 00 -2 -2 .0 PE 17 MA ti OS 00 8- 2- 00 RS 69 RE ve EC 45 20 20 N 50 09 10 FA JA OT 4 GA NE C LY T [address] UG MG TA BL ET 00 03 03 2 30 30 SO 33 TA Ac 00 -0 -2 .0 PE 71 MA ti 60 8- 2- 00 RS 74 RE ve 11 20 20 N 73 10 10 FA JA 1 GA NE LY T DR UG 00 03 03 2 60 30 SO 33 TA Ac AN 37 -0 -2 .0 PE 71 MA ti FA 81 8- 2- 00 RS 77 RE ve CI 16 20 20 N NE 00 10 10 FA JA 1 1 GA NE LY T MG DR TA UG BL ET CI 13 03 03 2 15 30 SO 33 TA Ac TA 66 -0 -2 .0 PE 71 MA ti LO 80 8- 2- 00 RS 78 RE ve MT 01 20 20 N AM 10 10 10 FA JA 5 GA NE HB LY T R 40 DR UG MG TA BL ET CO 50 03 03 0 60 30 SO 33 TA Ac NC 45 -0 -0 .0 PE 71 MA ti ER 80 8- 8- 00 RS 75 RE ve TA 58 20 20 N 60 10 10 FA JA ER 1 GA NE LY T 36 DR MG UG TA BL ET RA 53 03 03 2 60 30 SO 33 TA Ac NI 74 -0 -0 .0 PE 71 MA ti TI 60 8- 8- 00 RS 76 RE ve DI 25 20 20 N NE 30 10 10 FA JA 5 GA NE 15 LY T [address] UG TA BL ET
--- OUTSIDE RECORDS SUMMARY | 2017-01-02 02:37 | External Medical Summary Rpt | CCD ---
Demographics Preferred Language Hungarian Marital Status Unknown Scientology Affiliation Unknown Race Unknown Ethnic Group Unknown Author Author , ROGER DURAN Address Unknown Phone [email or web address] Providers Care Auditor Internal Name Role Phone [facility], Unavailable [...] ST 83 11 11 FA EV [address] LY N DR KAT RI 68 09 10 1 30 30 SO 38 PO Ac SP 38 -2 -2 .0 PE 52 E ti ER 20 6- 6- [address] ve ID 11 20 20 AC ON 31 11 11 FA Y E 4 VA L 0. LY [address] UG TA BL ET RI 68 09 10 1 30 30 SO 38 PO Ac SP 38 -2 -1 .0 PE 52 E ti ER 20 6- 7- [address] ve ID 11 20 20 AC ON 41 11 11 FA Y E 4 VA L [address] TA UG BL ET LI 00 09 10 1 60 30 SO 38 PO Ac TH 05 -2 -1 .0 PE 52 E ti IU 42 6- 7- [address] ve M 52 20 20 AC CA 73 11 11 FA Y RB 1 VA L ON LY AT E DR 30 UG 0 MG CA P OR 37 09 10 2 56 28 SO 38 TA Ac IL 00 -1 -1 .0 PE 39 MA ti OS 00 2- 1- 00 RS 16 RE ve EC 45 20 20 N 50 11 11 FA JA OT 4 VA NE C LY T [address] UG MG TA BL ET 00 09 10 2 28 28 SO 38 TA Ac 43 -1 -1 .0 PE 39 MA ti 00 2- 1- 00 RS 15 RE ve 53 20 20 N 01 11 11 FA JA 4 VA NE LY T DR UG RI 68 09 09 1 30 30 SO 38 PO Ac SP 38 -2 -2 .0 PE 52 E ti ER 20 6- 6- [address] ve ID 11 20 20 AC ON 31 11 11 FA Y E 4 VA L 0. LY [address] UG TA BL ET LI 00 08 09 0 60 30 SO 38 PO Ac TH 05 -2 -1 .0 PE 27 E ti IU 42 [address] ve M 52 20 20 AC CA 73 11 11 FA Y RB 1 VA L ON LY AT E DR 30 UG 0 MG CA P RI 68 08 09 0 30 30 SO 38 PO Ac SP 38 -2 -1 .0 PE 27 E ti ER 20 [address] ve ID 11 20 20 AC ON 41 11 11 FA Y E 4 VA L [address] TA UG BL ET 45 09 09 3 14 30 SO 38 GR Ac 80 -1 -1 2. PE 41 AV ti 20 4- 4- RS 71 ES ve 91 20 20 0 30 11 11 FA LE 1 VA SL LY IE W DR UG IM 00 09 09 0 24 30 SO 38 GR Ac IQ 78 -1 -1 .0 PE 41 AV ti UI 17 RS 73 ES ve MO 15 20 20 D 20 11 11 FA LE 5% 9 VA SL LY IE CR W EA DR M UG PA CK ET DI 00 09 09 3 59 30 SO 38 GR Ac FF 29 -1 -1 .0 PE 41 AV ti ER 95 4- 4- 00 RS 74 ES ve IN 91 20 20 20 11 11 FA LE 0. 2 VA SL 1% LY IE W LO DR TI UG ON CL 59 09 09 3 60 30 SO 38 GR Ac IN 76 -1 -1 .0 PE 41 AV ti DA 23 4- 4- RS 75 ES ve MY 74 20 20 CI 40 11 11 FA LE N 1 VA SL PH LY IE OS W P DR 1% UG LO TI ON 00 09 09 2 28 28 SO 38 TA Ac 43 -1 -1 .0 PE 39 MA ti 00 2- 2- 00 RS 15 RE ve 53 20 20 N 01 11 11 FA JA 4 VA NE LY T DR UG OR 37 09 09 2 56 28 SO 38 TA Ac IL 00 -1 -1 .0 PE 39 MA ti OS 00 2- 2- 00 RS 16 RE ve EC 45 20 20 N 50 11 11 FA JA OT 4 VA NE C LY T [address] UG MG TA BL ET 64 09 09 0 30 4 SO 38 TA Ac 45 -1 -1 .0 PE 39 MA ti 50 2- 2- 00 RS 18 RE ve 99 20 20 N 39 11 11 FA JA 5 VA NE LY T DR UG AC 00 09 09 1 20 5 SO 38 TA Ac YC 09 -1 -1 .0 PE 39 MA ti LO 38 2- 2- 00 RS 19 RE ve 94 20 20 N R 30 11 11 FA JA 40 1 VA NE [address] TA UG BL ET OR 00 08 08 0 12 3 SO 38 TA Ac OM 60 -3 -3 0. PE 28 MA ti ET 31 0- 0- 00 RS 79 RE ve MANUEL 58 20 20 0 N ZI 55 11 11 FA JA NE 8 VA NE -C LY T OD EI DR NE UG SY RU P CE 68 08 08 0 [address] Ac FU 18 -3 -3 .0 PE 28 ON ti RO 00 0- 0- 00 RS 74 E ve XI 30 20 20 DI ME 32 11 11 FA XI 0 VA E AX LY D ET IL DR UG 50 0 MG TA B RI 68 08 08 0 30 30 SO 38 PO Ac SP 38 -2 -2 .0 PE 27 E ti ER 20 9- 9- [address] ve ID 11 20 20 AC ON 31 11 11 FA Y E 4 VA L 0. LY [address] UG TA BL ET 00 08 08 0 12 3 SO 38 TA Ac 12 -2 -2 0. PE 25 MA ti 10 6- 6- 00 RS 50 RE ve 63 20 20 0 N 81 11 11 FA JA 6 VA NE LY T DR UG 52 08 08 0 12 30 SO 38 TA Ac 15 -2 -2 .0 PE 25 MA ti 20 6- 6- 00 RS 55 RE ve 53 20 20 N 93 11 11 FA JA 0 VA NE LY T DR UG RI 68 08 08 0 30 30 SO 38 PO Ac SP 38 -0 -1 .0 PE 00 E ti ER 20 1- 8- [address] ve ID 11 20 20 AC ON 41 11 11 FA Y E 4 VA L [address] TA UG BL ET LI 00 08 08 0 60 30 SO 38 PO Ac TH 05 -0 -1 .0 PE 00 E ti IU 42 1- 8- [address] ve M 52 20 20 AC CA 73 11 11 FA Y RB 1 VA L ON LY AT E DR 30 UG 0 MG CA P TR 45 08 08 0 30 5 SO 38 TA Ac IA 80 -1 -1 .0 PE 12 MA ti MC 20 5- 5- 00 RS 51 RE ve IN 04 20 20 N OL 93 11 11 FA JA ON 5 VA NE E LY T 0. 5% DR KAT OI NT ME NT 00 06 08 2 [address] Ac 43 -0 -1 .0 PE 51 ON ti 00 2 RS 78 E ve 53 20 20 DI 01 11 11 FA XI 4 VA E LY D DR UG RI 00 08 08 0 30 30 SO 38 PO Ac SP 09 -0 -0 .0 PE 00 E ti ER 30 - [address] ve ID 22 20 20 AC ON 50 11 11 FA Y E 6 VA L 0. LY [address] KAT TA BL ET OR 37 05 07 2 [address] Ac IL 00 -0 -2 .0 PE 29 ON ti OS 00 6- RS 44 E ve EC 45 20 20 DI 50 11 11 FA XI OT 4 VA E C LY D [address] KAT MG TA BL ET RI 68 07 07 0 30 30 SO 37 PO Ac SP 38 -1 -1 .0 PE 89 E ti ER 20 [address] ve ID 11 20 20 AC ON 41 11 11 FA Y E 4 VA L 1 LY MG TA UG BL ET LI 00 07 07 0 60 30 SO 37 PO Ac TH 05 -1 -1 .0 PE 89 E ti IU 42 [address] ve M 52 20 20 AC CA 73 11 11 FA Y RB 1 VA L ON LY AT E DR 30 UG 0 MG CA P LI 60 07 07 1 [address] Ac ND 43 -1 -1 .0 PE 87 ON ti AN 20 5 RS 81 E ve E 83 20 20 DI 1% 46 11 11 FA XI 0 VA E SH LY D AM PO DR O UG 00 06 07 2 [address] Ac 43 -0 -0 .0 PE 51 ON ti 00 RS 78 E ve 53 20 20 DI 01 11 11 FA XI 4 VA E LY D DR UG TR 50 05 06 2 [address] Ac AZ 11 -0 -2 .0 PE 29 ON ti OD 10 6- 00 RS 46 E ve ON 43 20 20 DI E 30 11 11 FA XI 50 3 VA E LY D MG TA UG BL ET CO 50 06 06 0 30 30 SO 37 TA Ac NC 45 -2 -2 .0 PE 67 MA ti ER 80 1 00 RS 33 RE ve TA 58 20 20 N 70 11 11 FA JA ER 1 VA NE LY T 54 DR MG UG TA BL ET TR 45 06 06 1 30 5 SO 37 TA Ac IA 80 -2 -2 .0 PE 67 MA ti MC 20 RS 36 RE ve IN 06 20 20 N OL 53 11 11 FA JA ON 5 VA NE E LY T 0. 5% DR KAT CR EA M CI 13 05 06 2 30 30 SO 37 TA Ac TA 66 -0 -1 .0 PE 29 MA ti LO 80 6- 6- 00 RS 40 RE ve OR 01 20 20 N AM 10 11 11 FA JA 5 VA NE HB LY T R 40 DR UG MG TA BL ET 00 10 06 2 60 30 SO 35 TA Ac AN 37 -0 -1 .0 PE 39 MA ti FA 81 6- 6 00 RS 53 RE ve CI 16 20 20 N NE 00 10 11 FA JA 1 1 VA NE LY T MG DR TA UG BL ET 00 05 06 2 [address] Ac 00 -0 -1 .0 PE 29 ON ti 60 6- 6 00 RS 42 E ve 11 20 20 DI 73 11 11 FA XI 1 VA E LY D DR KAT OR 37 05 06 2 [address] Ac IL 00 -0 -1 .0 PE 29 ON ti OS 00 6- 6- 00 RS 44 E ve EC 45 20 20 DI 50 11 11 FA XI OT 4 VA E C LY D [address] UG MG TA BL ET 00 06 06 2 [address] Ac 43 -0 -0 .0 PE 51 ON ti 00 2- 2 00 RS 78 E ve 53 20 20 DI 01 11 11 FA XI 4 VA E LY D DR UG TR 50 05 05 2 [address] Ac AZ 11 -0 -3 .0 PE 29 ON ti OD 10 6 00 RS 46 E ve ON 43 20 20 DI E 30 11 11 FA XI 50 3 VA E LY D MG DR TA UG BL ET 00 05 05 2 [address] Ac 00 -0 -1 .0 PE 29 ON ti 60 6- 2- 00 RS 42 E ve 11 20 20 DI 73 11 11 FA XI 1 VA E LY D DR UG OR 37 05 05 2 [address] Ac IL 00 -0 -1 .0 PE 29 ON ti OS 00 6- 2- 00 RS 44 E ve EC 45 20 20 DI 50 11 11 FA XI OT 4 VA E C LY D [address] UG MG TA BL ET 00 10 05 2 60 30 SO 35 TA Ac AN 37 -0 -1 .0 PE 39 MA ti FA 81 6- 2- 00 RS 53 RE ve CI 16 20 20 N NE 00 10 11 FA JA 1 1 VA NE LY T MG DR TA UG BL ET CI 13 05 05 2 30 30 SO 37 TA Ac TA 66 -0 -1 .0 PE 29 MA ti LO 80 6- 2- 00 RS 40 RE ve OR 01 20 20 N AM 10 11 11 FA JA 5 VA NE HB LY T R 40 DR UG MG TA BL ET 59 02 05 2 17 30 SO 36 TA Ac 31 -1 -0 .0 PE 49 MA ti 00 0- 6- 00 RS 60 RE ve 57 20 20 N 92 11 11 FA JA 0 VA NE LY T DR UG 00 02 05 2 30 30 SO 36 TA Ac 06 -1 -0 .0 PE 49 MA ti 76 0- 6- 00 RS 63 RE ve 07 20 20 N 03 11 11 FA JA 0 VA NE LY T DR UG CO 50 05 05 0 30 30 SO 37 TA Ac NC 45 -0 -0 .0 PE 29 MA ti ER 80 6- 6- 00 RS 41 RE ve TA 58 20 20 N 70 11 11 FA JA ER 1 VA NE LY T 54 DR MG UG TA BL ET TR 50 02 04 2 30 30 SO 36 TA Ac AZ 11 -1 -2 .0 PE 49 MA ti OD 10 0- 9- 00 RS 61 RE ve ON 43 20 20 N E 30 11 11 FA JA 50 3 VA NE LY T MG DR TA UG BL ET 00 02 04 2 30 30 SO 36 TA Ac 00 -1 -1 .0 PE 49 MA ti 60 0- 1- 00 RS 58 RE ve 11 20 20 N 73 11 11 FA JA 1 VA NE LY T DR UG OR 37 02 04 2 56 28 SO 36 TA Ac IL 00 -1 -1 .0 PE 49 MA ti OS 00 0- 1- 00 RS 59 RE ve EC 45 20 20 N 50 11 11 FA JA OT 4 VA NE C LY T [address] UG MG TA BL ET 00 02 04 2 60 30 SO 36 TA Ac AN 37 -1 -1 .0 PE 49 MA ti FA 81 0- 1- 00 RS 62 RE ve CI 16 20 20 N NE 00 11 11 FA JA 1 1 VA NE LY T MG DR TA UG BL ET CI 13 02 04 2 30 30 SO 36 TA Ac TA 66 -1 -1 .0 PE 49 MA ti LO 80 0- 1- 00 RS 64 RE ve OR 01 20 20 N AM 10 11 11 FA JA 5 VA NE HB LY T R 40 DR UG MG TA BL ET CO 50 04 04 0 30 30 SO 37 TA Ac NC 45 -0 -0 .0 PE 03 MA ti ER 80 7- 7- 00 RS 48 RE ve TA 58 20 20 N 70 11 11 FA JA ER 1 VA NE LY T 54 DR MG UG TA BL ET 00 11 04 5 [address] Ac 43 -0 -0 .0 PE 65 ON ti 00 3- 7 RS 00 E ve 53 20 20 DI 01 10 11 FA XI 4 VA E LY D DR UG TR 50 02 03 2 30 30 SO 36 TA Ac AZ 11 -1 -2 .0 PE 49 MA ti OD 10 0- 9- 00 RS 61 RE ve ON 43 20 20 N E 30 11 11 FA JA 50 3 VA NE LY T MG DR TA UG BL ET OR 68 03 03 0 20 7 SO 36 TA Ac OM 38 -1 -1 .0 PE 78 MA ti ET 20 0- 0- 00 RS 29 RE ve MANUEL 04 20 20 N ZI 11 11 11 FA JA NE 0 VA NE LY T 25 DR MG UG TA BL ET CO 50 03 03 0 30 30 SO 36 TA Ac NC 45 -1 -1 .0 PE 78 MA ti ER 80 0- 0- 00 RS 30 RE ve TA 58 20 20 N 70 11 11 FA JA ER 1 VA NE LY T 54 DR MG UG TA BL ET 00 02 03 2 30 30 SO 36 TA Ac 00 -1 -0 .0 PE 49 MA ti 60 0- 9- 00 RS 58 RE ve 11 20 20 N 73 11 11 FA JA 1 VA NE LY T DR UG OR 37 02 03 2 56 28 SO 36 TA Ac IL 00 -1 -0 .0 PE 49 MA ti OS 00 0- 9- 00 RS 59 RE ve EC 45 20 20 N 50 11 11 FA JA OT 4 VA NE C LY T [address] UG MG TA BL ET 00 02 03 2 60 30 SO 36 TA Ac AN 37 -1 -0 .0 PE 49 MA ti FA 81 0- 9- 00 RS 62 RE ve CI 16 20 20 N NE 00 11 11 FA JA 1 1 VA NE LY T MG DR TA UG BL ET CI 13 02 03 2 30 30 SO 36 TA Ac TA 66 -1 -0 .0 PE 49 MA ti LO 80 0- 9- 00 RS 64 RE ve OR 01 20 20 N AM 10 11 11 FA JA 5 VA NE HB LY T R 40 DR UG MG TA BL ET 00 11 03 5 [address] Ac 43 -0 -0 .0 PE 65 ON ti 00 3- 7- 00 RS 00 E ve 53 20 20 DI 01 10 11 FA XI 4 VA E LY D DR UG TR 50 02 02 2 30 30 SO 36 TA Ac AZ 11 -1 -2 .0 PE 49 MA ti OD 10 0- 3- 00 RS 61 RE ve ON 43 20 20 N E 30 11 11 FA JA 50 3 VA NE LY T MG DR TA UG BL ET 59 02 02 2 17 30 SO 36 TA Ac 31 -1 -1 .0 PE 49 MA ti 00 0- 0- 00 RS 60 RE ve 57 20 20 N 92 11 11 FA JA 0 VA NE LY T DR UG 00 02 02 2 60 30 SO 36 TA Ac AN 37 -1 -1 .0 PE 49 MA ti FA 81 0- 0- 00 RS 62 RE ve CI 16 20 20 N NE 00 11 11 FA JA 1 1 VA NE LY T MG DR TA UG BL ET 00 02 02 2 30 30 SO 36 TA Ac 06 -1 -1 .0 PE 49 MA ti 76 0- 0- 00 RS 63 RE ve 07 20 20 N 03 11 11 FA JA 0 VA NE LY T DR UG CI 13 02 02 2 30 30 SO 36 TA Ac TA 66 -1 -1 .0 PE 49 MA ti LO 80 0- 0- 00 RS 64 RE ve OR 01 20 20 N AM 10 11 11 FA JA 5 VA NE HB LY T R 40 DR UG MG TA BL ET CO 50 02 02 0 30 30 SO 36 TA Ac NC 45 -1 -1 .0 PE 49 MA ti ER 80 0- 0- 00 RS 57 RE ve TA 58 20 20 N 70 11 11 FA JA ER 1 VA NE LY T 54 DR MG UG TA BL ET 00 02 02 2 30 30 SO 36 TA Ac 00 -1 -1 .0 PE 49 MA ti 60 0- 0- 00 RS 58 RE ve 11 20 20 N 73 11 11 FA JA 1 VA NE LY T DR UG OR 37 02 02 2 56 28 SO 36 TA Ac IL 00 -1 -1 .0 PE 49 MA ti OS 00 0- 0- 00 RS 59 RE ve EC 45 20 20 N 50 11 11 FA JA OT 4 VA NE C LY T [address] UG MG TA BL ET 00 11 02 5 [address] Ac 43 -0 -0 .0 PE 65 ON ti 00 3- 7- 00 RS 00 E ve 53 20 20 DI 01 10 11 FA XI 4 VA E LY D DR UG AZ 00 01 01 0 6. 5 SO 36 TA Ac IT 78 -2 -2 00 PE 33 MA ti HR 11 4- 4- 0 RS 04 RE ve OM 49 20 20 N YC 66 11 11 FA JA IN 8 VA NE LY T [address] MG UG TA BL ET ME 51 01 01 0 21 6 SO 36 TA Ac TH 99 -2 -2 .0 PE 33 MA ti YL 10 4- 4- 00 RS 05 RE ve OR 18 20 20 N ED 83 11 11 FA JA NI 1 VA NE SO LY T LO NE DR 4 UG MG DO SE PK 60 01 01 0 24 6 SO 36 TA Ac 25 -2 -2 0. PE 33 MA ti 80 4- 4- 00 RS 06 RE ve 23 20 20 0 N 91 11 11 FA JA 6 VA NE LY T DR UG TR 50 11 01 2 30 30 SO 35 TA Ac AZ 11 -1 -2 .0 PE 74 MA ti OD 10 1- 4- 00 RS 13 RE ve ON 43 20 20 N E 30 10 11 FA JA 50 3 VA NE LY T MG DR TA UG BL ET OR 37 11 01 2 56 28 SO 35 TA Ac IL 00 -0 -1 .0 PE 68 MA ti OS 00 8- 2- 00 RS 93 RE ve EC 45 20 20 N 50 10 11 FA JA OT 4 VA NE C LY T [address] UG MG TA BL ET 00 11 01 2 30 30 SO 35 TA Ac 00 -0 -1 .0 PE 68 MA ti 60 8- 2- 00 RS 94 RE ve 11 20 20 N 73 10 11 FA JA 1 VA NE LY T DR UG 00 11 01 2 60 30 SO 35 TA Ac AN 37 -0 -1 .0 PE 68 MA ti FA 81 8- 2- 00 RS 95 RE ve CI 16 20 20 N NE 00 10 11 FA JA 1 1 VA NE LY T MG DR TA UG BL ET CI 13 11 01 2 30 30 SO 35 TA Ac TA 66 -0 -1 .0 PE 68 MA ti LO 80 8- 2- 00 RS 96 RE ve OR 01 20 20 N AM 10 10 11 FA JA 5 VA NE HB LY T R 40 DR UG MG TA BL ET CO 50 01 01 0 30 30 SO 36 TA Ac NC 45 -1 -1 .0 PE 22 MA ti ER 80 0- 0- 00 RS 05 RE ve TA 58 20 20 N 70 11 11 FA JA ER 1 VA NE LY T 54 DR MG UG TA BL ET NY 45 01 01 0 30 10 SO [address] 80 -0 -0 .0 PE 17 MA ti AT 20 4- 4- 00 RS 22 RE ve IN 04 20 20 N 81 11 11 FA JA 10 1 VA NE 0, LY T [address] UN UG IT S/ GM OI NT HY 00 01 01 0 30 10 SO [address] 16 -0 -0 .0 PE 17 MA ti OC 80 4- 4- 00 RS 23 RE ve OR 08 20 20 N TI 03 11 11 FA JA SO 1 VA NE NE LY T 2. DR 5% UG CR EA M 00 11 01 5 [address] Ac 43 -0 -0 .0 PE 65 ON ti 00 3- 3- 00 RS 00 E ve 53 20 20 DI 01 10 11 FA XI 4 VA E LY D DR UG TR 50 11 12 2 30 30 SO 35 TA Ac AZ 11 -1 -2 .0 PE 74 MA ti OD 10 1- 0- 00 RS 13 RE ve ON 43 20 20 N E 30 10 10 FA JA 50 3 VA NE LY T MG DR TA UG BL ET CO 50 12 12 0 30 30 SO 35 TA Ac NC 45 -1 -1 .0 PE 99 MA ti ER 80 0- 0- 00 RS 43 RE ve TA 58 20 20 N 70 10 10 FA JA ER 1 VA NE LY T 54 DR MG UG TA BL ET 00 11 12 2 60 30 SO 35 TA Ac AN 37 -0 -0 .0 PE 68 MA ti FA 81 8- 8- 00 RS 95 RE ve CI 16 20 20 N NE 00 10 10 FA JA 1 1 VA NE LY T MG DR TA UG BL ET CI 13 11 12 2 30 30 SO 35 TA Ac TA 66 -0 -0 .0 PE 68 MA ti LO 80 8- 8- 00 RS 96 RE ve OR 01 20 20 N AM 10 10 10 FA JA 5 VA NE HB LY T R 40 DR UG MG TA BL ET OR 37 11 12 2 56 28 SO 35 TA Ac IL 00 -0 -0 .0 PE 68 MA ti OS 00 8 8 RS 93 RE ve EC 45 20 20 N 50 10 10 FA JA OT 4 VA NE C LY T [address] UG MG TA BL ET 00 11 12 2 30 30 SO 35 TA Ac 00 -0 -0 .0 PE 68 MA ti 60 8 8 00 RS 94 RE ve 11 20 20 N 73 10 10 FA JA 1 VA NE LY T DR UG 00 11 12 5 [address] Ac 43 -0 -0 .0 PE 65 ON ti 00 3 2 RS 00 E ve 53 20 20 DI 01 10 10 FA XI 4 VA E LY D DR UG ON 00 11 11 0 6. 30 SO 35 TA Ac DA 78 -1 -1 00 PE 80 MA ti NS 11 8- 8- 0 RS 42 RE ve ET 68 20 20 N RO 13 10 10 FA JA N 1 VA NE HC LY T L 8 DR MG UG TA BL ET TR 50 11 11 2 30 30 SO 35 TA Ac AZ 11 -1 -1 .0 PE 74 MA ti OD 10 03-22- 00 RS 13 RE ve ON 43 20 20 N E 30 10 10 FA JA 50 3 VA NE LY T MG DR TA UG BL ET 64 11 11 2 60 30 SO 35 TA Ac 98 -0 -0 .0 PE 68 MA ti 00 8 8 RS 98 RE ve 12 20 20 N 30 10 10 FA JA 1 VA NE LY T DR UG CO 50 11 11 0 30 30 SO 35 TA Ac NC 45 -0 -0 .0 PE 68 MA ti ER 80 8 8 RS 99 RE ve TA 58 20 20 N 70 10 10 FA JA ER 1 VA NE LY T 54 DR MG UG TA BL ET 59 11 11 2 17 30 SO 35 TA Ac 31 -0 -0 .0 PE 68 MA ti 00 8 RS 92 RE ve 57 20 20 N 92 10 10 FA JA 0 VA NE LY T DR UG OR 37 11 11 2 56 28 SO 35 TA Ac IL 00 -0 -0 .0 PE 68 MA ti OS 00 RS 93 RE ve EC 45 20 20 N 50 10 10 FA JA OT 4 VA NE C LY T [address] UG MG TA BL ET 00 11 11 2 30 30 SO 35 TA Ac 00 -0 -0 .0 PE 68 MA ti 60 8- 8- 00 RS 94 RE ve 11 20 20 N 73 10 10 FA JA 1 VA NE LY T DR UG 00 11 11 2 60 30 SO 35 TA Ac AN 37 -0 -0 .0 PE 68 MA ti FA 81 8- 8- 00 RS 95 RE ve CI 16 20 20 N NE 00 10 10 FA JA 1 1 VA NE LY T MG DR TA UG BL ET CI 13 11 11 2 30 30 SO 35 TA Ac TA 66 -0 -0 .0 PE 68 MA ti LO 80 8- 8- 00 RS 96 RE ve OR 01 20 20 N AM 10 10 10 FA JA 5 VA NE HB LY T R 40 DR UG MG TA BL ET 00 11 11 2 30 30 SO 35 TA Ac 06 -0 -0 .0 PE 68 MA ti 76 8- 8- 00 RS 97 RE ve 07 20 20 N 03 10 10 FA JA 0 VA NE LY T DR UG BE 68 11 11 0 [address] Ac NZ 38 -0 -0 .0 PE 64 ON ti ON 20 3- 3- 00 RS 98 E ve AT 24 20 20 DI AT 80 10 10 FA XI E 1 VA E 20 L[address] UG CA PS UL E CE 68 11 11 0 [address] Ac FU 18 -0 -0 .0 PE 64 ON ti RO 00 3- 3- 00 RS 99 E ve XI 30 20 20 DI ME 26 10 10 FA XI 0 VA E AX LY D ET IL DR UG 25 0 MG TA B 00 11 11 5 [address] Ac 43 -0 -0 .0 PE 65 ON ti 00 3- 3- 00 RS 00 E ve 53 20 20 DI 01 10 10 FA XI 4 VA E LY D DR UG TR 51 11 11 0 5. [address] Ac IA 67 -0 -0 00 PE 65 ON ti MC 21 3- 3- 0 RS 01 E ve IN 26 20 20 DI OL 70 10 10 FA XI ON 5 VA E E LY D 0. 1% DR STEPHENS PA ST E 64 11 11 0 [address] Ac 37 -0 -0 .0 PE 65 ON ti 60 3- 3- 00 RS 02 E ve 54 20 20 DI 40 10 10 FA XI 1 VA E LY D DR KAT TR 50 08 10 2 30 30 SO 34 TA Ac AZ 11 -1 -1 .0 PE 91 MA ti OD 10 0- 3- 00 RS 58 RE ve ON 43 20 20 N E 30 10 10 FA JA 50 3 VA NE LY T MG DR TA UG BL ET 00 10 10 0 10 7 SO 35 TA Ac 90 -1 -1 .0 PE 45 MA ti 40 2- 2- 00 RS 33 RE ve 79 20 20 N 31 10 10 FA JA 0 VA NE LY T DR UG 00 07 10 2 30 30 SO 34 TA Ac 06 -2 -0 .0 PE 78 MA ti 76 6- 6- 00 RS 81 RE ve 07 20 20 N 03 10 10 FA JA 0 VA NE LY T DR UG OR 00 10 10 0 15 5 SO 35 TA Ac ED 59 -0 -0 .0 PE 39 MA ti NI 15 6- 6- 00 RS 44 RE ve SO 44 20 20 N NE 20 10 10 FA JA 5 VA NE [address] UG TA BL ET CO 50 10 10 0 30 30 SO 35 TA Ac NC 45 -0 -0 .0 PE 39 MA ti ER 80 6- 6- 00 RS 45 RE ve TA 58 20 20 N 70 10 10 FA JA ER 1 VA NE LY T 54 DR MG UG TA BL ET DI 00 10 10 0 20 5 SO 35 TA Ac PH 37 -0 -0 .0 PE 39 MA ti EN 80 6- 6- 00 RS 46 RE ve OX 41 20 20 N YL 51 10 10 FA JA AT 0 VA NE E- LY T AT RO DR P UG 2. 5- 0. 02 5 BE 68 10 10 0 30 10 SO 35 TA Ac NZ 38 -0 -0 .0 PE 39 MA ti ON 20 6- 6- 00 RS 47 RE ve AT 24 20 20 N AT 80 10 10 FA JA E 1 VA NE 20 L[address] UG CA PS UL E 60 10 10 0 24 6 SO 35 TA Ac 25 -0 -0 0. PE 39 MA ti 80 6- 6- 00 RS 48 RE ve 23 20 20 0 N 91 10 10 FA JA 6 VA NE LY T DR UG CE 68 10 10 0 20 10 SO 35 TA Ac FP 18 -0 -0 .0 PE 39 MA ti RO 00 6- 6- 00 RS 49 RE ve ZI 40 20 20 N L 30 10 10 FA JA 25 1 VA NE [address] TA UG BL ET 00 07 10 2 60 30 SO 34 TA Ac AN 37 -2 -0 .0 PE 78 MA ti FA 81 6- 5- 00 RS 79 RE ve CI 16 20 20 N NE 00 10 10 FA JA 1 1 VA NE LY T MG DR TA UG BL ET CI 13 07 10 2 30 30 SO 34 TA Ac TA 66 -2 -0 .0 PE 78 MA ti LO 80 6- 5- 00 RS 80 RE ve OR 01 20 20 N AM 10 10 10 FA JA 5 VA NE HB LY T R 40 DR UG MG TA BL ET OR 37 07 10 2 28 28 SO 34 TA Ac IL 00 -2 -0 .0 PE 78 MA ti OS 00 6 5 00 RS 82 RE ve EC 45 20 20 N 50 10 10 FA JA OT 4 VA NE C LY T [address] UG MG TA BL ET 00 07 10 2 30 30 SO 34 TA Ac 00 -2 -0 .0 PE 78 MA ti 60 6- 5- 00 RS 78 RE ve 11 20 20 N 73 10 10 FA JA 1 VA NE LY T DR UG TR 50 08 09 2 30 30 SO 34 TA Ac AZ 11 -1 -1 .0 PE 91 MA ti OD 10 0- 0- 00 RS 58 RE ve ON 43 20 20 N E 30 10 10 FA JA 50 3 VA NE LY T MG DR TA UG BL ET CE 68 09 09 0 10 5 SO 35 TA Ac FD 18 -0 -0 .0 PE 10 MA ti IN 00 2- 2 00 RS 93 RE ve IR 71 20 20 N 16 10 10 FA JA 30 0 VA NE [address] CA UG PS UL E 00 09 09 0 21 6 SO 35 TA Ac 55 -0 -0 .0 PE 10 MA ti 50 2- 2- 00 RS 94 RE ve 30 20 20 N 13 10 10 FA JA 8 VA NE LY T DR UG 60 09 09 0 18 9 SO 35 TA Ac 25 -0 -0 0. PE 10 MA ti 80 2- 2- 00 RS 95 RE ve 23 20 20 0 N 91 10 10 FA JA 6 VA NE LY T DR UG OR 37 07 08 2 28 28 SO 34 TA Ac IL 00 -2 -2 .0 PE 78 MA ti OS 00 6- 7 00 RS 82 RE ve EC 45 20 20 N 50 10 10 FA JA OT 4 VA NE C LY T [address] UG MG TA BL ET 00 07 08 2 30 30 SO 34 TA Ac 00 -2 -2 .0 PE 78 MA ti 60 6- 6- 00 RS 78 RE ve 11 20 20 N 73 10 10 FA JA 1 VA NE LY T DR UG 00 07 08 2 60 30 SO 34 TA Ac AN 37 -2 -2 .0 PE 78 MA ti FA 81 6- 6- 00 RS 79 RE ve CI 16 20 20 N NE 00 10 10 FA JA 1 1 VA NE LY T MG DR TA UG BL ET CI 13 07 08 2 30 30 SO 34 TA Ac TA 66 -2 -2 .0 PE 78 MA ti LO 80 6- 6- 00 RS 80 RE ve OR 01 20 20 N AM 10 10 10 FA JA 5 VA NE HB LY T R 40 DR UG MG TA BL ET CO 50 08 08 0 30 30 SO 35 TA Ac NC 45 -2 -2 .0 PE 03 MA ti ER 80 5- 5- 00 RS 59 RE ve TA 58 20 20 N 70 10 10 FA JA ER 1 VA NE LY T 54 DR MG UG TA BL ET 64 08 08 0 20 10 SO 34 TA Ac 37 -1 -1 .0 PE 91 MA ti 60 0- 0- 00 RS 56 RE ve 54 20 20 N 40 10 10 FA JA 1 VA NE LY T DR UG BE 68 08 08 0 30 10 SO 34 TA Ac NZ 38 -1 -1 .0 PE 91 MA ti ON 20 0- 0- 00 RS 57 RE ve AT 24 20 20 N AT 80 10 10 FA JA E 1 VA NE 20 LY T [address] UG CA PS UL E TR 50 08 08 2 30 30 SO 34 TA Ac AZ 11 -1 -1 .0 PE 91 MA ti OD 10 0- 0- 00 RS 58 RE ve ON 43 20 20 N E 30 10 10 FA JA 50 3 VA NE LY T MG DR TA UG BL ET CE 68 08 08 0 14 7 SO 34 TA Ac FP 18 -1 -1 .0 PE 91 MA ti RO 00 0- 0- 00 RS 59 RE ve ZI 40 20 20 N L 40 10 10 FA JA 50 1 VA NE [address] TA UG BL ET 59 08 08 2 1. 90 SO 34 TA Ac 76 -0 -0 00 PE 90 MA ti 24 9- 9- 0 RS 26 RE ve 53 20 20 N 80 10 10 FA JA 1 VA NE LY T DR UG 00 07 07 2 30 30 SO 34 TA Ac 00 -2 -2 .0 PE 78 MA ti 60 6- 6- 00 RS 78 RE ve 11 20 20 N 73 10 10 FA JA 1 VA NE LY T DR UG 00 07 07 2 60 30 SO 34 TA Ac AN 37 -2 -2 .0 PE 78 MA ti FA 81 6- 6- 00 RS 79 RE ve CI 16 20 20 N NE 00 10 10 FA JA 1 1 VA NE LY T MG DR TA UG BL ET CI 13 07 07 2 30 30 SO 34 TA Ac TA 66 -2 -2 .0 PE 78 MA ti LO 80 6- 6- 00 RS 80 RE ve OR 01 20 20 N AM 10 10 10 FA JA 5 VA NE HB LY T R 40 DR UG MG TA BL ET 00 07 07 2 30 30 SO 34 TA Ac 06 -2 -2 .0 PE 78 MA ti 76 6- 6- 00 RS 81 RE ve 07 20 20 N 03 10 10 FA JA 0 VA NE LY T DR UG OR 37 07 07 2 28 28 SO 34 TA Ac IL 00 -2 -2 .0 PE 78 MA ti OS 00 6- 6- 00 RS 82 RE ve EC 45 20 20 N 50 10 10 FA JA OT 4 VA NE C LY T [address] UG MG TA BL ET CO 50 07 07 0 30 30 SO 34 TA Ac NC 45 -2 -2 .0 PE 79 MA ti ER 80 6- 6- 00 RS 02 RE ve TA 58 20 20 N 70 10 10 FA JA ER 1 VA NE LY T 54 DR MG UG TA BL ET 64 05 07 1 60 30 SO 34 TA Ac 98 -2 -0 .0 PE 37 MA ti 00 6- 1- 00 RS 31 RE ve 12 20 20 N 30 10 10 FA JA 1 VA NE LY T DR UG AN 24 12 06 1 23 3 SO 33 TA Ac TI 38 -2 -2 .6 PE 17 MA ti -D 50 8- 9- 00 RS 72 RE ve IA 55 20 20 N RR 45 09 10 FA JA HE 3 VA NE AL LY T 2 DR MG UG CA PL ET OR 37 06 06 2 28 28 SO 34 TA Ac IL 00 -1 -1 .0 PE 47 MA ti OS 00 0- 0- 00 RS 87 RE ve EC 45 20 20 N 50 10 10 FA JA OT 4 VA NE C LY T [address] UG MG TA BL ET CO 50 06 06 0 30 30 SO 34 TA Ac NC 45 -1 -1 .0 PE 47 MA ti ER 80 0- 0- 00 RS 89 RE ve TA 58 20 20 N 70 10 10 FA JA ER 1 VA NE LY T 54 DR MG UG TA BL ET OR 68 06 06 0 20 7 SO 34 TA Ac OM 38 -1 -1 .0 PE 47 MA ti ET 20 0- 0- 00 RS 90 RE ve MANUEL 04 20 20 N ZI 11 10 10 FA JA NE 0 VA NE LY T 25 DR MG UG TA BL ET CI 13 05 06 2 30 30 SO 34 TA Ac TA 66 -0 -0 .0 PE 21 MA ti LO 80 5- 7- 00 RS 14 RE ve OR 01 20 20 N AM 10 10 10 FA JA 5 VA NE HB LY T R 40 DR UG MG TA BL ET 64 05 05 1 60 30 SO 34 TA Ac 98 -2 -2 .0 PE 37 MA ti 00 6- 6- 00 RS 31 RE ve 12 20 20 N 30 10 10 FA JA 1 VA NE LY T DR UG 00 03 05 2 30 30 SO 33 TA Ac 00 -0 -2 .0 PE 71 MA ti 60 8- 4- 00 RS 74 RE ve 11 20 20 N 73 10 10 FA JA 1 VA NE LY T DR UG 00 03 05 2 60 30 SO 33 TA Ac AN 37 -0 -2 .0 PE 71 MA ti FA 81 8- 4- 00 RS 77 RE ve CI 16 20 20 N NE 00 10 10 FA JA 1 1 VA NE LY T MG DR TA UG BL ET 59 05 05 0 1. 90 SO 34 TA Ac 76 -2 -2 00 PE 36 MA ti 24 4- 4- 0 RS 01 RE ve 53 20 20 N 80 10 10 FA JA 1 VA NE LY T DR UG RA 53 12 05 2 60 30 SO 32 TA Ac NI 74 -0 -1 .0 PE 95 MA ti TI 60 1- 4- 00 RS 19 RE ve DI 25 20 20 N NE 30 09 10 FA JA 5 VA NE 15 LY T [address] UG TA BL ET 64 05 05 0 15 10 SO 34 TA Ac 45 -0 -0 .0 PE 21 MA ti 50 5- 5- 00 RS 11 RE ve 99 20 20 N 39 10 10 FA JA 4 VA NE LY T DR UG BYRD 00 05 05 0 10 5 SO 34 TA Ac LF 60 -0 -0 .0 PE 21 MA ti AM 35 5- 5- 00 RS 12 RE ve ET 78 20 20 N HO 12 10 10 FA JA XA 8 VA NE ZO LY T LE -T DR MP UG DS TA BL ET CO 50 05 05 0 30 30 SO 34 TA Ac NC 45 -0 -0 .0 PE 21 MA ti ER 80 5- 5- 00 RS 13 RE ve TA 58 20 20 N 70 10 10 FA JA ER 1 VA NE LY T 54 DR MG UG TA BL ET CI 13 05 05 2 30 30 SO 34 TA Ac TA 66 -0 -0 .0 PE 21 MA ti LO 80 5- 5- 00 RS 14 RE ve OR 01 20 20 N AM 10 10 10 FA JA 5 VA NE HB LY T R 40 DR UG MG TA BL ET 00 03 04 2 30 30 SO 33 TA Ac 00 -0 -2 .0 PE 71 MA ti 60 8- 2- 00 RS 74 RE ve 11 20 20 N 73 10 10 FA JA 1 VA NE LY T DR UG 00 03 04 2 60 30 SO 33 TA Ac AN 37 -0 -2 .0 PE 71 MA ti FA 81 8- 2- 00 RS 77 RE ve CI 16 20 20 N NE 00 10 10 FA JA 1 1 VA NE LY T MG DR TA UG BL ET 00 04 04 1 30 30 SO 34 TA Ac 06 -1 -1 .0 PE 01 MA ti 76 2- 2- 00 RS 13 RE ve 07 20 20 N 03 10 10 FA JA 0 VA NE LY T DR UG CI 13 04 04 0 15 30 SO 34 TA Ac TA 66 -1 -1 .0 PE 01 MA ti LO 80 2- 2- 00 RS 14 RE ve OR 01 20 20 N AM 00 10 10 FA JA 5 VA NE HB LY T R 20 DR UG MG TA BL ET CO 50 04 04 0 60 30 SO 34 TA Ac NC 45 -1 -1 .0 PE 01 MA ti ER 80 2- 2- 00 RS 16 RE ve TA 58 20 20 N 60 10 10 FA JA ER 1 VA NE LY T 36 DR MG UG TA BL ET OR 10 03 03 0 [address] Ac OM 70 -2 -2 .0 PE 89 ON ti ET 20 6- 6- 00 RS 35 E ve MANUEL 00 20 20 DI ZI 31 10 10 FA XI NE 0 VA E LY D 25 DR MG UG TA BL ET 60 03 03 0 [address] Ac 25 -2 -2 0. PE 89 ON ti 80 6- 6- 00 RS 36 E ve 23 20 20 0 DI 91 10 10 FA XI 6 VA E LY D DR UG OR 37 12 03 2 28 28 SO 33 TA Ac IL 00 -2 -2 .0 PE 17 MA ti OS 00 8- 2- 00 RS 69 RE ve EC 45 20 20 N 50 09 10 FA JA OT 4 VA NE C LY T [address] UG MG TA BL ET 00 03 03 2 30 30 SO 33 TA Ac 00 -0 -2 .0 PE 71 MA ti 60 8- 2- 00 RS 74 RE ve 11 20 20 N 73 10 10 FA JA 1 VA NE LY T DR UG 00 03 03 2 60 30 SO 33 TA Ac AN 37 -0 -2 .0 PE 71 MA ti FA 81 8- 2- 00 RS 77 RE ve CI 16 20 20 N NE 00 10 10 FA JA 1 1 VA NE LY T MG DR TA UG BL ET CI 13 03 03 2 15 30 SO 33 TA Ac TA 66 -0 -2 .0 PE 71 MA ti LO 80 8- 2- 00 RS 78 RE ve OR 01 20 20 N AM 10 10 10 FA JA 5 VA NE HB LY T R 40 DR UG MG TA BL ET CO 50 03 03 0 60 30 SO 33 TA Ac NC 45 -0 -0 .0 PE 71 MA ti ER 80 8- 8- 00 RS 75 RE ve TA 58 20 20 N 60 10 10 FA JA ER 1 VA NE LY T [address] DR MG UG TA BL ET RA 53 03 03 2 60 30 SO 33 TA Ac NI 74 -0 -0 .0 PE 71 MA ti TI 60 8- 8- 00 RS 76 RE ve DI 25 20 20 N NE 30 10 10 FA JA 5 VA NE 15 LY T [address] UG TA BL ET
--- OUTSIDE RECORDS SUMMARY | 2017-01-02 02:39 | External Medical Summary Rpt ---
Author Author ROGER Cash, [employer] Organization [employer] Address Unknown Phone Unavailable Results XR KNEE LEFT 2 VIEWS Observa Value Referen Units Interpr Notes Date tion ce etation Range XR KNEE \.br\ No No No No Oct 6 LEFT 2 informa informa informa informa 2016 VIEWS tion in tion in tion in tion in 8:40 PM source source source source data data data data [facility]\ [address]br \ [facility] [place] [address]\. br\\.br \ ------- --NAME- ------- - NUMBER SEX AGE ADMIT DISC. XRAY# F/C TYPE\.b r\ NAPOLEON ANN SHIRA [id number] F 20 [birth year] 10/26/15 XAB E/R\.br \ DATE OF : 9[birth year] M/R# [id number] PH#: RM ERLLL\. br\ LOCATIO N: TRANSCR IBED: 6 14:30\. br\ XR KNEE LEFT 2 VIEWS [id number] COMPLET ED:0 09/04 20:54 HLW [id number]\. br\ {REASON FOR PROCESS : compare for patella placeme nt\.br\ \.br\ PHYSICI AN: WELLS DEAN\.b r\\.br\ \.br\== ======= ======= ======= ======= ======= ======= ======= ======= ======= ======= ======= \.br\ RADIOLO GY REPORT\ .br\=== ======= ======= ======= ======= ======= ======= ======= ======= ======= ======= ======\ .br\ORD ER DATE and TIME: 016 0\.b r\\.br\ \.br\2 VIEWS OF THE LEFT KNEE, 016\.br \\.br\C LINICAL HISTORY : Right knee pain status post fall. Left knee films for\.br \compar cheryl.\. br\\.br \COMPAR CHERYL: None.\. br\\.br \FINDIN GS: There is no acute fractur e or disloca tion. The joint spaces are\.br \well-p reserve d. There is no joint effusio n or soft tissue abnorma lity.\. br\\.br \IMPRES JULY: NORMAL EXAMINA TION OF THE LEFT KNEE.\. br\\.br \\.br\E lectron ically Signed By:\.br \SATISH DAVIS MD,RADI OLOGIST \.br\Da te/Time : 6 14:30\. br\ XR LEG RIGHT Observa Value Referen Units Interpr Notes Date tion ce etation Range XR LEG \.br\ No No No No Oct 6 RIGHT informa informa informa informa 2016 tion in tion in tion in tion in 7:37 PM source source source source data data data data [facility]\.br\ [address]br \ [facility] [place] [address]\. br\\.br \ ------- --NAME- ------- - NUMBER SEX AGE ADMIT DISC. XRAY# F/C TYPE\.b r\ NAPOLEON ANN SHIRA [id number] F 20 10[birth year] 10/26/15 XAB E/R\.br \ DATE OF : 997 M/R# [id number] PH#: RM ERLLL\. br\ LOCATIO N: TRANSCR IBED: 6 14:30\. br\ XR LEG RIGHT 00008 COMPLET ED: 09/04 20:54 HLW [id number]\. br\ Diagnos is: TRAUMA\ .br\\.b r\ PHYSICI AN: WELLS DEAN\.b r\\.br\ \.br\== ======= ======= ======= ======= ======= ======= ======= ======= ======= ======= ======= \.br\ RADIOLO GY REPORT\ .br\=== ======= ======= ======= ======= ======= ======= ======= ======= ======= ======= ======\ .br\ORD ER DATE and TIME: 016 193\.b r\\.br\ \.br\4 VIEWS RIGHT KNEE AND 2 VIEWS RIGHT LOWER LEG, 016:\.b r\\.br\ CLINICA L HISTORY : Right knee and lower leg pain status post fall.\. br\\.br \COMPAR CHERYL: 2 views left knee the same day.\.b r\\.br\ FINDING S: There is no acute fractur e or disloca tion of the right knee or lower\. br\leg. The joint spaces are well preserv ed. There is no joint effusio n or soft\.b r\tissu e abnorma lity.\. br\\.br \IMPRES JULY:\. br\\.br \1. Normal examina tions of the right knee and lower leg.\.b r\\.br\ \.br\El ectroni lianet Signed By:\.br \SATISH DAVIS MD,RADI OLOGIST \.br\Da te/Time : 6 14:30\. br\ XR KNEE RIGHT 4 OR MORE VIEWS Observa Value Referen Units Interpr Notes Date tion ce etation Range XR KNEE \.br\ No No No No Oct 25 RIGHT informa informa informa informa 2015 4 OR tion in tion in tion in tion in 7:36 PM MORE source source source source VIEWS data data data data [facility]\.br\ [address]br \ [place] [place] [address]\. br\\.br \ ------- --NAME- ------- - NUMBER SEX AGE ADMIT DISC. XRAY# F/C TYPE\.b r\ NAPOLEON ANN SHIRA [id number] F 20 [birth year] 10/26/15 XAB E/R\.br \ DATE OF : 997 M/R# [id number] PH#: RM ERLLL\. br\ LOCATIO N: TRANSCR IBED: 6 14:30\. br\ XR KNEE RIGHT 4 OR MORE VIEWS [id number] COMPLET ED:0 09/04 20:54 HLW 56710\. br\ {REASON FOR PROCESS : TRAUMA/ PAIN\.b r\\.br\ PHYSICI AN: WELLS DEAN\.b r\\.br\ \.br\== ======= ======= ======= ======= ======= ======= ======= ======= ======= ======= ======= \.br\ RADIOLO GY REPORT\ .br\=== ======= ======= ======= ======= ======= ======= ======= ======= ======= ======= ======\ .br\ORD ER DATE and TIME: 016 1936\.b r\\.br\ \.br\4 VIEWS RIGHT KNEE AND 2 VIEWS RIGHT LOWER LEG, 016:\.b r\\.br\ CLINICA L HISTORY : Right knee and lower leg pain status post fall.\. br\\.br \COMPAR CHERYL: 2 views left knee the same day.\.b r\\.br\ FINDING S: There is no acute fractur e or disloca tion of the right knee or lower\. br\leg. The joint spaces are well preserv ed. There is no joint effusio n or soft\.b r\tissu e abnorma lity.\. br\\.br \IMPRES JULY:\. br\\.br \1. Normal examina tions of the right knee and lower leg.\.b r\\.br\ \.br\El ectroni lianet Signed By:\.br \SATISH DAVIS MD,RADI OLOGIST \.br\Da te/Time : 6 14:30\. br\
--- OUTSIDE RECORDS SUMMARY | 2017-01-02 02:39 | External Medical Summary Rpt | CCD ---
Author Author , ROGER DURAN Address Unknown Phone [email or web address] Support Name Relationship Address Phone NAPOLEON, Next Of Kin Unknown Unavailable DEBRA Immunization Name Date Rout CVX Reac Dose Comm Prov Is Faci e tion ent ider Refu lity Give sed n Tdap 07-1 115 0.50 Hist SWIT No H191 , 4-20 mL oric ZER Adso 15 al TAMM rbed Info Y rmat ion - Sour ce Unsp ecif ied Juanito 03-0 10 999 Hist H191 No H191 o-IP 1-20 oric V 01 al Info rmat ion - Sour ce Unsp ecif ied MMR 03-0 3 999 Hist H191 No H191 1-20 oric 01 al Info rmat ion - Sour ce Unsp ecif ied DTaP 03-0 107 999 Hist H191 No H191 , UF 1-20 oric 01 al Info rmat ion - Sour ce Unsp ecif ied Vari 05-2 21 999 Hist H191 No H191 cell 8-19 oric a 98 al Info rmat ion - Sour ce Unsp ecif ied DTaP 05-2 107 999 Hist H191 No H191 , UF 8-19 oric 98 al Info rmat ion - Sour ce Unsp ecif ied Hib 02-1 48 999 Hist H191 No H191 7-19 oric 98 al Info rmat ion - Sour ce Unsp ecif ied MMR 02-1 3 999 Hist H191 No H191 7-19 oric 98 al Info rmat ion - Sour ce Unsp ecif ied Juanito 02-1 10 999 Hist H191 No H191 o-IP 7-19 oric V 98 al Info rmat ion - Sour ce Unsp ecif ied Hib 08-1 48 999 Hist H191 No H191 8-19 oric 97 al Info rmat ion - Sour ce Unsp ecif ied Hep 08-1 8 999 Hist H191 No H191 B, 8-19 oric ped/ 97 al adol Info rmat ion - Sour ce Unsp ecif ied DTP 08-1 1 999 Hist H191 No H191 8-19 oric 97 al Info rmat ion - Sour ce Unsp ecif ied Hib 06-1 48 999 Hist H191 No H191 0-19 oric 97 al Info rmat ion - Sour ce Unsp ecif ied Juanito 06-1 10 999 Hist H191 No H191 o-IP 0-19 oric V 97 al Info rmat ion - Sour ce Unsp ecif ied DTP 06-1 1 999 Hist H191 No H191 0-19 oric 97 al Info rmat ion - Sour ce Unsp ecif ied Hib 04-0 48 999 Hist H191 No H191 8-19 oric 97 al Info rmat ion - Sour ce Unsp ecif ied DTP 04-0 1 999 Hist H191 No H191 8-19 oric 97 al Info rmat ion - Sour ce Unsp ecif ied Juanito 04-0 10 999 Hist H191 No H191 o-IP 8-19 oric V 97 al Info rmat ion - Sour ce Unsp ecif ied Hep 03-0 8 999 Hist H191 No H191 B, 3-19 oric ped/ 97 al adol Info rmat ion - Sour ce Unsp ecif ied Hep 02-0 Intr 8 999 Hist ME No ME B, 3-19 amus oric ped/ 97 cula al adol r Info rmat ion - Sour ce Unsp ecif ied
--- OUTSIDE RECORDS SUMMARY | 2017-01-02 02:39 | External Medical Summary Rpt | CCD ---
Author Author , ROGER DURAN Address Unknown Phone [email or web address] Support Name Relationship Address Phone NAPOLEON, Next [...] ied Hep 02-0 Intr 8 999 Hist LA No LA B, 3-19 amus oric ped/ 97 cula al adol r Info rmat ion - Sour ce Unsp ecif ied
--- OUTSIDE RECORDS SUMMARY | 2017-01-02 02:39 | External Medical Summary Rpt ---
[...] source source source data data data data [facility]\.br\ [address]br \ [facility] [place] [address]\. br\\.br \ ------- --NAME- ------- - NUMBER SEX AGE ADMIT DISC. XRAY# F/C TYPE\.b r\ NAPOLEON ANN SHIRA [id number] F 20 10/26/15 10/26/15 XAB E/R\.br \ DATE OF : 997 M/R# [id number] PH#: RM ERLLL\. br\ LOCATIO N: TRANSCR IBED: 6 14:30\. br\ XR KNEE LEFT 2 VIEWS [id number] COMPLET ED:0 09/04 20:54 HLW 18429\. br\ {REASON FOR PROCESS : compare for [...] source source source data data data data [facility]\.br\ [address]br \ [facility] [place] [address]\. br\\.br \ ------- --NAME- ------- - NUMBER SEX AGE ADMIT DISC. XRAY# F/C TYPE\.b r\ NAPOLEON ANN SHIRA [id number] F 20 10/26/15 10/26/15 XAB E/R\.br \ DATE OF : 997 M/R# [id number] PH#: RM ERLLL\. br\ LOCATIO N: TRANSCR IBED: 6 14:30\. br\ XR LEG RIGHT [id number] COMPLET ED: 09/04 20:54 HLW 62382\. br\ Diagnos is: TRAUMA\ .br\\.b r\ PHYSICI [...] source source VIEWS data data data data [facility]\.br\ [address]\.br \ [place] [place] [address]\. br\\.br \ ------- --NAME- ------- - NUMBER SEX AGE ADMIT DISC. XRAY# F/C TYPE\.b r\ NAPOLEON ANN SHIRA [id number] F 20 10/26/15 10/26/15 XAB E/R\.br \ DATE OF : 997 M/R# [id number] PH#: RM ERLLL\. br\ LOCATIO N: TRANSCR IBED: 6 14:30\. br\ XR KNEE RIGHT 4 OR MORE VIEWS [id number] COMPLET ED:0 09/04 20:54 HLW 06433\. br\ {REASON FOR PROCESS : TRAUMA/ PAIN\.b [...]
== END 2016-12-28 14:27 | disposition home or self-care (01) ==
LOC: ER 13:54
DX: M25.562 Pain in left knee (principal); X50.1XXA Overexertion from prolonged static or awkward postures, initial encounter; Y92.019 Unspecified place in single-family (private) house as the place of occurrence of the external cause; Z88.1 Allergy status to other antibiotic agents; J45.909 Unspecified asthma, uncomplicated; E03.9 Hypothyroidism, unspecified; F17.210 Nicotine dependence, cigarettes, uncomplicated